=== PATIENT | female | born 1990 | race African-American/Black ===

== ENCOUNTER 2018-02-10 15:10 | Emergency (ER) | payer MEDICAID ==
[~2018-02-10] VITALS: Ht 165.1 cm; Wt 93.2 kg
[~2018-02-10 15:10] MED LIST: ALBU18HF2 INH; ALBU6.7H INH; ALPR-624 PO; BECL7.3A INH; CEPH250T PO; CHLO118M PO; CLIN-80 PO; CLIN150C98 PO; FLUO20CA22 PO; FLUO20CA39 PO; GLYB2.5T4 PO; HYDR-3964 PO; HYDR-569 PO; IBUP-1985 PO; IBUP-1986 PO; LEVO125T PO; METH-604 PO; METH4TAB81 PO; NAPR500T6 PO; ONDA4TAB6 PO; PHEN-716 PO; PREG50CA PO; PROP60TA19 PO; VALA10002 PO
[2018-02-10 16:09] LABS: BASOPHILS % (AUTO) 0.4 % (0-1); EOSINOPHILS # (AUTO) 0.1 X10'3 (0-0.9); EOSINOPHILS % (AUTO) 1.2 % (0-6); HEMATOCRIT 45.5 % (35.0-45.0); LYMPHOCYTES # (AUTO) 1.5 X10'3 (1.1-4.8); LYMPHOCYTES % (AUTO) 22.3 % (21-51); MEAN CORPUSCULAR HEMOGLOBIN 28.6 PG (27.0-31.0); MEAN CORPUSCULAR VOLUME 86.8 FL (78-98); MEAN PLATELET VOLUME 6.7 FL (7.4-10.4); MONOCYTES # (AUTO) 0.3 X10'3 (0-0.9); MONOCYTES % (AUTO) 4.4 % (2-12); NEUTROPHILS # (AUTO) 4.7 X10'3 (1.8-7.7); NEUTROPHILS % (AUTO) 71.7 % (42-75); PLATELET COUNT 251 X10'3 (140-440); RED BLOOD COUNT 5.24 X10'6 (4.20-5.60); RED CELL DISTRIBUTION WIDTH 15.8 % (11.5-14.5); WHITE BLOOD COUNT 6.6 X10'3 (4.5-11.0)
[2018-02-10] MEDS ORDERED: aspirin 81mg tab.chew PO ONE (16:15)
[2018-02-10] MEDS ORDERED: nitroGLYCERIN 0.4mg SUBLingual tab SL PRN (16:15)
[2018-02-10 16:20] LABS: PARTIAL THROMBOPLASTIN TIME 34 SECONDS (22-32); PROTHROMBIN TIME 10.8 SECONDS (9.0-12.0)
[2018-02-10 16:26] LABS: ALANINE AMINOTRANSFERASE 25 U/L (12-78); ALBUMIN 4.4 G/DL (3.4-5.0); ALBUMIN/GLOBULIN RATIO 0.9 (1.1-1.5); ALKALINE PHOSPHATASE 106 IU/L (46-116); ANION GAP 11 (8-16); ASPARTATE AMINO TRANSFERASE 20 U/L (10-37); BILIRUBIN,TOTAL 0.4 MG/DL (0.1-1.0); BLOOD UREA NITROGEN 10 MG/DL (7-18); BUN/CREATININE RATIO 9.4 (6.6-38.0); CALCIUM 8.8 MG/DL (8.5-10.1); CHLORIDE 98 MMOL/L (99-107); CREATININE 1.06 MG/DL (0.40-0.90); GLUCOSE 97 MG/DL (70-104); POTASSIUM 3.8 MMOL/L (3.5-5.1); SODIUM 137 MMOL/L (135-145); TOTAL CARBON DIOXIDE 27.6 MMOL/L (24-32); TOTAL PROTEIN 9.1 G/DL (6.4-8.2); TROPONIN I < 0.04 NG/ML (0.0-0.05); eGFR 75 ML/MIN
[2018-02-10] MEDS ORDERED: HYDROcodone/acetaminophen 10/325mg tab PO ONE (16:45)
[2018-02-10] MEDS ORDERED: ipratropium/albuterol 3ml nebule NEB ONE (17:05)
[2018-02-10 17:28] VITALS: BP 125/71
[2018-02-10 18:00] LABS: D-DIMER 0.28 MG/L FEU (0-0.50)
== END 2018-02-10 18:49 | disposition home or self-care (01) ==
LOC: ER 15:11
DX: R51 Headache (principal); R53.1 Weakness; R20.0 Anesthesia of skin; R05 Cough; R07.89 Other chest pain; E11.42 Type 2 diabetes mellitus with diabetic polyneuropathy; J45.909 Unspecified asthma, uncomplicated; E05.90 Thyrotoxicosis, unspecified without thyrotoxic crisis or storm; G89.29 Other chronic pain; Z90.49 Acquired absence of other specified parts of digestive tract; Z56.0 Unemployment, unspecified; Z88.5 Allergy status to narcotic agent; Z79.899 Other long term (current) drug therapy
CPT/HCPCS: 36415; 70450; 70544; 70551; 71045; 80053; 82948; 84484; 85025; 85379; 85610; 85730; 93005; 99285

== ENCOUNTER 2018-03-18 13:27 | Emergency (ER) | payer MEDICAID ==
[~2018-03-18] VITALS: Ht 166.4 cm; Wt 91.8 kg
[~2018-03-18 13:27] MED LIST changes: -CLIN-80 PO; +CLIN300C85 PO
[2018-03-18 13:33] VITALS: BP 113/72
[2018-03-18] MEDS ORDERED: HYDR-565 PO (15:47)
== END 2018-03-18 15:59 | disposition home or self-care (01) ==
LOC: ER 13:27
DX: R10.32 Left lower quadrant pain (principal); E11.42 Type 2 diabetes mellitus with diabetic polyneuropathy; G89.29 Other chronic pain; J45.909 Unspecified asthma, uncomplicated; E05.90 Thyrotoxicosis, unspecified without thyrotoxic crisis or storm; E89.0 Postprocedural hypothyroidism; Z98.890 Other specified postprocedural states; Z56.0 Unemployment, unspecified; Z88.5 Allergy status to narcotic agent; Z79.899 Other long term (current) drug therapy
CPT/HCPCS: 99283

== ENCOUNTER 2018-05-08 11:11 | Emergency (ER) | payer MEDICAID ==
[~2018-05-08] VITALS: Ht 167.6 cm; Wt 85.5 kg
[~2018-05-08 11:11] MED LIST changes: -CEPH250T PO
[2018-05-08] MEDS ORDERED: LIDOcaine 1.5% w/epinephrine 1:200,000 5ml ampul IJ ONE (11:35)
[2018-05-08] MEDS ORDERED: bacitracin 15gm ointment TP ONE (11:35)
[2018-05-08] MEDS ORDERED: HYDR-3965 PO (12:33)
[2018-05-08 12:46] VITALS: BP 121/66
== END 2018-05-08 12:47 | disposition home or self-care (01) ==
LOC: ER 11:11
DX: N60.82 Other benign mammary dysplasias of left breast (principal); N76.4 Abscess of vulva; L73.8 Other specified follicular disorders; N60.12 Diffuse cystic mastopathy of left breast; E11.42 Type 2 diabetes mellitus with diabetic polyneuropathy; J45.909 Unspecified asthma, uncomplicated; E05.90 Thyrotoxicosis, unspecified without thyrotoxic crisis or storm; G89.29 Other chronic pain; Z90.49 Acquired absence of other specified parts of digestive tract; Z56.0 Unemployment, unspecified; Z88.5 Allergy status to narcotic agent; Z79.899 Other long term (current) drug therapy
CPT/HCPCS: 10060; 56405; 99284; A6449; J3490

== ENCOUNTER 2018-05-13 11:13 | Emergency (ER) | payer MEDICAID ==
[~2018-05-13] VITALS: Ht 170.2 cm; Wt 69.0 kg
[~2018-05-13 11:13] MED LIST changes: +HYDR-3965 PO
[2018-05-13 11:17] VITALS: BP 120/76
[2018-05-13] MEDS ORDERED: ketorolac tromethamine 15mg/ml inj. IM ONE (11:40)
[2018-05-13] MEDS ORDERED: DOXY100C2 PO (11:48)
== END 2018-05-13 11:54 | disposition home or self-care (01) ==
LOC: ER 11:14
DX: L73.9 Follicular disorder, unspecified (principal); N64.52 Nipple discharge; E11.42 Type 2 diabetes mellitus with diabetic polyneuropathy; J45.909 Unspecified asthma, uncomplicated; G89.29 Other chronic pain; E05.90 Thyrotoxicosis, unspecified without thyrotoxic crisis or storm; Z90.49 Acquired absence of other specified parts of digestive tract; Z90.89 Acquired absence of other organs; Z88.5 Allergy status to narcotic agent; Z79.899 Other long term (current) drug therapy; Z56.0 Unemployment, unspecified
CPT/HCPCS: 96372; 99283; J1885

== ENCOUNTER 2018-05-20 11:26 | Emergency (ER) | payer MEDICAID ==
[~2018-05-20] VITALS: Ht 578.2 cm; Wt 68.8 kg
[~2018-05-20 11:26] MED LIST changes: +DOXY100C2 PO
[2018-05-20 11:29] VITALS: BP 104/74
== END 2018-05-20 13:10 | disposition home or self-care (01) ==
LOC: ER 11:27
DX: L02.212 Cutaneous abscess of back [any part, except buttock and flank] (principal); Z53.21 Procedure and treatment not carried out due to patient leaving prior to being seen by health care provider

== ENCOUNTER 2018-06-13 11:34 | Emergency (ER) | payer MEDICAID ==
[~2018-06-13] VITALS: Ht 167.6 cm; Wt 69.0 kg
[~2018-06-13 11:34] MED LIST changes: -DOXY100C2 PO; -HYDR-3965 PO
[2018-06-13] MEDS ORDERED: proparacaine 0.5% ophthalmic drops 15ml LEFTEYE ONE (12:20)
[2018-06-13 13:19] LABS: ALANINE AMINOTRANSFERASE 19 U/L (12-78); ALBUMIN 3.7 G/DL (3.4-5.0); ALKALINE PHOSPHATASE 113 IU/L (46-116); ANION GAP 10 (8-16); ASPARTATE AMINO TRANSFERASE 19 U/L (10-37); BILIRUBIN,TOTAL 0.2 MG/DL (0.1-1.0); BLOOD UREA NITROGEN 15 MG/DL (7-18); BUN/CREATININE RATIO 20.3 (6.6-38.0); CHLORIDE 102 MMOL/L (99-107); CREATININE 0.74 MG/DL (0.40-0.90); GLUCOSE 95 MG/DL (70-104); SODIUM 138 MMOL/L (135-145); TOTAL CARBON DIOXIDE 26.1 MMOL/L (24-32); TOTAL PROTEIN 7.5 G/DL (6.4-8.2); eGFR > 90 ML/MIN
[2018-06-13] MEDS ORDERED: HYDROcodone/acetaminophen 10/325mg tab PO ONE (13:45)
[2018-06-13] MEDS ORDERED: piperacillin/tazo 3.375gm/50ml 50 ML IV ONE (13:45)
[2018-06-13 14:00] LABS: BASOPHILS # (AUTO) 0.1 X10'3 (0-0.2); BASOPHILS % (AUTO) 0.8 % (0-1); EOSINOPHILS # (AUTO) 0.2 X10'3 (0-0.9); EOSINOPHILS % (AUTO) 2.9 % (0-6); HEMATOCRIT 41.5 % (35.0-45.0); HEMOGLOBIN 13.7 g/dl (12.0-16.0); LYMPHOCYTES % (AUTO) 47.7 % (21-51); MEAN CORPUSCULAR HEMOGLOBIN 28.2 PG (27.0-31.0); MEAN CORPUSCULAR VOLUME 85.4 FL (78-98); MONOCYTES # (AUTO) 0.3 X10'3 (0-0.9); MONOCYTES % (AUTO) 4.3 % (2-12); NEUTROPHILS # (AUTO) 2.8 X10'3 (1.8-7.7); NEUTROPHILS % (AUTO) 44.3 % (42-75); PLATELET COUNT 301 X10'3 (140-440); RED BLOOD COUNT 4.86 X10'6 (4.20-5.60); RED CELL DISTRIBUTION WIDTH 15.4 % (11.5-14.5); WHITE BLOOD COUNT 6.3 X10'3 (4.5-11.0)
[2018-06-13] MEDS ORDERED: ofloxacin 0.33% 5ml ophthalmic drops LEFTEYE STA (14:08)
[2018-06-13] MEDS ORDERED: amox tr/potassium clavulanate 875/125mg TAB PO ONE (14:10)
[2018-06-13 14:13] LABS: TROPONIN I < 0.04 NG/ML (0.0-0.05)
[2018-06-13] MEDS ORDERED: ciprofloxacin 0.3% 2.5ml ophthalmic solution LEFTEYE ONE (14:20)
[2018-06-13] MEDS ORDERED: AMOX-580 PO (14:28)
[2018-06-13] MEDS ORDERED: OFLO5DRO LEFTEYE (14:28)
[2018-06-13 14:42] VITALS: BP 136/60
== END 2018-06-13 14:50 | disposition home or self-care (01) ==
LOC: ER 11:35
DX: S05.02XA Injury of conjunctiva and corneal abrasion without foreign body, left eye, initial encounter (principal); H04.302 Unspecified dacryocystitis of left lacrimal passage; R06.02 Shortness of breath; E11.42 Type 2 diabetes mellitus with diabetic polyneuropathy; J44.9 Chronic obstructive pulmonary disease, unspecified; G89.29 Other chronic pain; E03.9 Hypothyroidism, unspecified; Z90.49 Acquired absence of other specified parts of digestive tract; Z88.5 Allergy status to narcotic agent; Z79.2 Long term (current) use of antibiotics; Z79.899 Other long term (current) drug therapy; Z56.0 Unemployment, unspecified; X58.XXXA Exposure to other specified factors, initial encounter; Y93.89 Activity, other specified; Y92.89 Other specified places as the place of occurrence of the external cause; Y99.8 Other external cause status
CPT/HCPCS: 36415; 70480; 71045; 80053; 84484; 85025; 93005; 99285; J2543

== ENCOUNTER 2018-06-15 15:56 | Emergency (ER) | payer MEDICAID ==
[~2018-06-15] VITALS: Ht 167.6 cm; Wt 75.5 kg
[~2018-06-15 15:56] MED LIST changes: +AMOX-580 PO; +OFLO5DRO LEFTEYE
[2018-06-15] MEDS ORDERED: HYDR-565 PO (16:47)
[2018-06-15] MEDS ORDERED: PENI250T2 PO (16:47)
[2018-06-15 17:14] VITALS: BP 163/100
== END 2018-06-15 17:10 | disposition home or self-care (01) ==
LOC: ER 15:57
DX: K04.7 Periapical abscess without sinus (principal); E11.42 Type 2 diabetes mellitus with diabetic polyneuropathy; J45.909 Unspecified asthma, uncomplicated; E03.9 Hypothyroidism, unspecified; G89.29 Other chronic pain; Z90.49 Acquired absence of other specified parts of digestive tract; Z90.89 Acquired absence of other organs; Z88.5 Allergy status to narcotic agent; Z79.2 Long term (current) use of antibiotics; Z79.899 Other long term (current) drug therapy; Z56.0 Unemployment, unspecified
CPT/HCPCS: 99284

== ENCOUNTER 2018-07-05 11:53 | Emergency (ER) | payer MEDICAID ==
[~2018-07-05] VITALS: Ht 167.6 cm; Wt 69.2 kg
[~2018-07-05 11:53] MED LIST changes: +HYDR-4383 PO; -HYDR-569 PO
[2018-07-05] MEDS ORDERED: DICY10CA88 PO (12:32)
[2018-07-05 12:42] VITALS: BP 106/68
== END 2018-07-05 12:44 | disposition home or self-care (01) ==
LOC: ER 11:54
DX: R10.84 Generalized abdominal pain (principal); R61 Generalized hyperhidrosis; F41.9 Anxiety disorder, unspecified; F32.9 Major depressive disorder, single episode, unspecified; F20.9 Schizophrenia, unspecified; G89.29 Other chronic pain; E11.42 Type 2 diabetes mellitus with diabetic polyneuropathy; Z87.440 Personal history of urinary (tract) infections; Z90.49 Acquired absence of other specified parts of digestive tract; Z56.0 Unemployment, unspecified; Z88.5 Allergy status to narcotic agent; Z79.899 Other long term (current) drug therapy
CPT/HCPCS: 99283

== ENCOUNTER → 2018-09-22 | Emergency (ER) | payer MEDICAID ==
[~2018-09-22] VITALS: Ht 167.6 cm; Wt 90.9 kg
[~2018-09-22] MED LIST changes: +ACET-3068 PO; -AMOX-580 PO; +DICY10CA88 PO; -OFLO5DRO LEFTEYE; +PENI500T2 PO
[2018-09-22 13:09] VITALS: BP 117/76
--- NOTE | 2018-09-22 16:18 | NUR ---
DID NOT WANT TO WAIT FOR ORTHO ORDERS AND LEFT WITH DC PAPERS AND AN LORI WRAP.
== END | disposition home or self-care (01) ==
LOC: ER 13:03
DX: S60.222A Contusion of left hand, initial encounter (principal); E11.42 Type 2 diabetes mellitus with diabetic polyneuropathy; J45.909 Unspecified asthma, uncomplicated; E05.90 Thyrotoxicosis, unspecified without thyrotoxic crisis or storm; G89.29 Other chronic pain; Z90.49 Acquired absence of other specified parts of digestive tract; Z90.89 Acquired absence of other organs; Z87.891 Personal history of nicotine dependence; Z79.899 Other long term (current) drug therapy; Z56.0 Unemployment, unspecified; W01.0XXA Fall on same level from slipping, tripping and stumbling without subsequent striking against object, initial encounter; Y93.89 Activity, other specified; Y92.89 Other specified places as the place of occurrence of the external cause; Y99.8 Other external cause status
CPT/HCPCS: 29125; 73110; 73130; 99283

== ENCOUNTER 2018-10-15 11:01 | Emergency (ER) | payer MEDICAID ==
[~2018-10-15] VITALS: Ht 167.6 cm; Wt 78.0 kg
[~2018-10-15 11:01] MED LIST changes: -PENI500T2 PO
[2018-10-15 11:03] VITALS: BP 118/64
[2018-10-15] MEDS ORDERED: ketorolac trometh inj. 60 MG/2 ML VIAL IM ONE (12:15)
== END 2018-10-15 12:30 | disposition home or self-care (01) ==
LOC: ER 11:02
DX: S70.12XA Contusion of left thigh, initial encounter (principal); H54.40 Blindness, one eye, unspecified eye; J45.909 Unspecified asthma, uncomplicated; E11.42 Type 2 diabetes mellitus with diabetic polyneuropathy; G89.29 Other chronic pain; Z90.49 Acquired absence of other specified parts of digestive tract; Z98.890 Other specified postprocedural states; Z56.0 Unemployment, unspecified; Z79.2 Long term (current) use of antibiotics; Z79.899 Other long term (current) drug therapy; X58.XXXA Exposure to other specified factors, initial encounter; Y93.89 Activity, other specified; Y92.89 Other specified places as the place of occurrence of the external cause; Y99.8 Other external cause status
CPT/HCPCS: 96372; 99283; J1885

== ENCOUNTER 2019-01-07 12:23 | Emergency (ER) | payer MEDICAID ==
[~2019-01-07] VITALS: Ht 167.6 cm; Wt 96.4 kg
[~2019-01-07 12:23] MED LIST changes: -ACET-3068 PO; +CLIN-96 PO; -CLIN300C85 PO
[2019-01-07 12:55] VITALS: BP 123/77
[2019-01-07] MEDS ORDERED: SULF1TAB49 PO (13:25)
== END 2019-01-07 14:21 | disposition home or self-care (01) ==
LOC: ER 12:24
DX: N76.4 Abscess of vulva (principal); E11.42 Type 2 diabetes mellitus with diabetic polyneuropathy; J45.909 Unspecified asthma, uncomplicated; E03.9 Hypothyroidism, unspecified; G89.29 Other chronic pain; Z90.49 Acquired absence of other specified parts of digestive tract; Z98.890 Other specified postprocedural states; Z56.0 Unemployment, unspecified; Z79.899 Other long term (current) drug therapy
CPT/HCPCS: 99283

== ENCOUNTER 2019-02-10 13:02 | Emergency (ER) | payer MEDICAID ==
[~2019-02-10] VITALS: Ht 167.6 cm; Wt 82.0 kg
[2019-02-10 13:08] VITALS: BP 114/74
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
[2019-02-10] MEDS ORDERED: TRAM50TA2 PO (17:02)
== END 2019-02-10 14:03 | disposition left against medical advice (07) ==
LOC: ER 13:03
DX: S70.02XA Contusion of left hip, initial encounter (principal); S70.01XA Contusion of right hip, initial encounter; R07.9 Chest pain, unspecified; J45.909 Unspecified asthma, uncomplicated; E11.42 Type 2 diabetes mellitus with diabetic polyneuropathy; G89.29 Other chronic pain; E05.90 Thyrotoxicosis, unspecified without thyrotoxic crisis or storm; Z90.49 Acquired absence of other specified parts of digestive tract; Z90.89 Acquired absence of other organs; Z79.899 Other long term (current) drug therapy; Z56.0 Unemployment, unspecified; X99.8XXA Assault by other sharp object, initial encounter; Y93.01 Activity, walking, marching and hiking; Y92.488 Other paved roadways as the place of occurrence of the external cause; Y99.8 Other external cause status
CPT/HCPCS: 71045; 99284

== ENCOUNTER 2019-02-10 16:24 | Emergency (ER) | payer MEDICAID ==
[~2019-02-10] VITALS: Ht 167.6 cm; Wt 80.7 kg
[2019-02-10 16:33] VITALS: BP 108/78
[2019-02-10] MEDS ORDERED: TRAM50TA2 PO (17:02)
--- NOTE | 2019-02-10 17:08 | NUR ---
I TOOK PHOTOS OF PT'S RIGHT KNEE, LEFT THIG, TOP OF RIGHT SHOULDER, RIGHT SCAPULA, RIGHT PUBIS AREA LUMP, LEFT ANKEL WITH SOME BRUISING. PHOTOS WERE TAKEN ON [employer] OFFICERS SIM CARD AND OUR CAMERA. OFFICER LEFT WITH THE SIM CARD AND PT.
== END 2019-02-10 17:11 | disposition home or self-care (01) ==
LOC: EEVIPCON 16:25 → ER 16:25
DX: S20.211A Contusion of right front wall of thorax, initial encounter (principal); S40.011A Contusion of right shoulder, initial encounter; S80.12XA Contusion of left lower leg, initial encounter; S80.11XA Contusion of right lower leg, initial encounter; S80.02XA Contusion of left knee, initial encounter; S80.01XA Contusion of right knee, initial encounter; E11.42 Type 2 diabetes mellitus with diabetic polyneuropathy; J45.909 Unspecified asthma, uncomplicated; E03.9 Hypothyroidism, unspecified; G89.29 Other chronic pain; Z90.49 Acquired absence of other specified parts of digestive tract; Z98.890 Other specified postprocedural states; Z56.0 Unemployment, unspecified; Z59.0 Homelessness; Z79.899 Other long term (current) drug therapy; Y04.8XXA Assault by other bodily force, initial encounter; Y93.89 Activity, other specified; Y92.89 Other specified places as the place of occurrence of the external cause; Y99.8 Other external cause status
CPT/HCPCS: 99283

== ENCOUNTER 2019-03-14 19:07 | Emergency (ER) | payer MEDICAID ==
[~2019-03-14] VITALS: Ht 167.6 cm; Wt 85.5 kg
[~2019-03-14 19:07] MED LIST changes: +CYCL-1 PO; +TRAM50TA2 PO
[2019-03-14 19:14] VITALS: BP 112/80
== END 2019-03-14 22:13 | disposition left against medical advice (07) ==
LOC: ER 19:07
DX: M25.562 Pain in left knee (principal); Z53.21 Procedure and treatment not carried out due to patient leaving prior to being seen by health care provider
CPT/HCPCS: 73564

== ENCOUNTER 2019-05-14 12:51 | Emergency (ER) | payer MEDICAID ==
[~2019-05-14] VITALS: Ht 167.6 cm; Wt 85.5 kg
[~2019-05-14 12:51] MED LIST changes: -ALBU6.7H INH; +ALBU6.7H9 INH; -TRAM50TA2 PO
[2019-05-14] MEDS ORDERED: PENI500T2 PO (13:48)
[2019-05-14 13:50] VITALS: BP 134/82
== END 2019-05-14 13:38 | disposition home or self-care (01) ==
LOC: ER 12:51
DX: L02.214 Cutaneous abscess of groin (principal); K02.9 Dental caries, unspecified; J45.909 Unspecified asthma, uncomplicated; E11.9 Type 2 diabetes mellitus without complications; E05.00 Thyrotoxicosis with diffuse goiter without thyrotoxic crisis or storm; E05.90 Thyrotoxicosis, unspecified without thyrotoxic crisis or storm; G89.29 Other chronic pain; F41.9 Anxiety disorder, unspecified; F32.9 Major depressive disorder, single episode, unspecified; F20.9 Schizophrenia, unspecified; Z90.49 Acquired absence of other specified parts of digestive tract; Z56.0 Unemployment, unspecified; Z79.2 Long term (current) use of antibiotics; Z79.899 Other long term (current) drug therapy
CPT/HCPCS: 99283

== ENCOUNTER 2019-08-18 14:27 | Emergency (ER) | payer MEDICAID ==
[~2019-08-18] VITALS: Ht 167.6 cm; Wt 75.0 kg
[~2019-08-18 14:27] MED LIST changes: +CLIN-90 PO; -CLIN-96 PO
[2019-08-18 15:16] LABS: BASOPHILS # (AUTO) 0.1 X10'3 (0-0.2); BASOPHILS % (AUTO) 0.9 % (0-1); EOSINOPHILS # (AUTO) 0.2 X10'3 (0-0.9); HEMATOCRIT 37.3 % (35.0-45.0); HEMOGLOBIN 12.8 g/dl (12.0-16.0); LYMPHOCYTES # (AUTO) 2.9 X10'3 (1.1-4.8); LYMPHOCYTES % (AUTO) 41.4 % (21-51); MEAN CORPUSCULAR HEMOGLOBIN 31.4 PG (27.0-31.0); MEAN CORPUSCULAR HGB CONC 34.3 g/dL (33.0-36.5); MEAN CORPUSCULAR VOLUME 91.7 FL (78-98); MEAN PLATELET VOLUME 6.8 FL (7.4-10.4); MONOCYTES # (AUTO) 0.4 X10'3 (0-0.9); MONOCYTES % (AUTO) 5.1 % (2-12); NEUTROPHILS # (AUTO) 3.5 X10'3 (1.8-7.7); NEUTROPHILS % (AUTO) 49.6 % (42-75); PLATELET COUNT 267 X10'3 (140-440); RED BLOOD COUNT 4.07 X10'6 (4.20-5.60); RED CELL DISTRIBUTION WIDTH 17.1 % (11.5-14.5)
[2019-08-18 15:33] LABS: ALANINE AMINOTRANSFERASE 30 U/L (12-78); ALBUMIN/GLOBULIN RATIO 1.1 (1.1-1.5); ALKALINE PHOSPHATASE 92 IU/L (46-116); ANION GAP 6 (8-16); ASPARTATE AMINO TRANSFERASE 24 U/L (10-37); BILIRUBIN,TOTAL 0.4 MG/DL (0.1-1.0); BLOOD UREA NITROGEN 12 MG/DL (7-18); BUN/CREATININE RATIO 14.1 (6.6-38.0); CALCIUM 8.5 MG/DL (8.5-10.1); CHLORIDE 103 MMOL/L (99-107); CREATININE 0.85 MG/DL (0.40-0.90); GLUCOSE 100 MG/DL (70-104); LIPASE 66 U/L (73-393); POTASSIUM 4.2 MMOL/L (3.5-5.1); SODIUM 140 MMOL/L (135-145); TOTAL CARBON DIOXIDE 31.3 MMOL/L (24-32); TOTAL PROTEIN 7.8 G/DL (6.4-8.2); eGFR > 90 ML/MIN
[2019-08-18 17:01] LABS: URINE HCG NEGATIVE (NEG)
[2019-08-18 17:03] LABS: CLARITY,URINE SLIGHTLY CLOUDY (Clear); COLOR,URINE YELLOW (Yellow); GLUCOSE, URINE NEGATIVE (Neg); KETONES,URINE NEGATIVE (Neg); LEUKOCYTE ESTERASE ,URINE NEGATIVE (Neg); NITRITES, URINE NEGATIVE (Neg); OCCULT BLOOD,URINE SMALL (Neg); PH,URINE 7.5 (4.8-8.0); PROTEIN,URINE NEGATIVE (Neg); UROBILINOGEN,URINE 0.2 E.U/dL (0.2-1.0)
[2019-08-18 17:04] LABS: UA COLLECTION TYPE CLN CATCH MIDSTREAM
[2019-08-18 17:11] LABS: BACTERIA,URINE FEW /HPF (Neg); MUCUS STRANDS FEW /LPF (Neg); SQUAMOUS EPITHELIAL CELL,UR MANY /LPF (FEW); WBC,URINE 0-4 /HPF (0-4)
[2019-08-18] MEDS ORDERED: ketorolac tromethamine 15mg/ml inj. IM ONE (17:30)
[2019-08-18] MEDS ORDERED: IBUP-1984 PO (17:33)
[2019-08-18] MEDS ORDERED: ACET-2119 PO (17:33)
[2019-08-18 17:49] VITALS: BP 113/63
== END 2019-08-18 17:50 | disposition home or self-care (01) ==
LOC: ER 14:27
DX: K43.9 Ventral hernia without obstruction or gangrene (principal); J45.909 Unspecified asthma, uncomplicated; E05.90 Thyrotoxicosis, unspecified without thyrotoxic crisis or storm; G89.29 Other chronic pain; E11.42 Type 2 diabetes mellitus with diabetic polyneuropathy; Z90.49 Acquired absence of other specified parts of digestive tract; Z56.0 Unemployment, unspecified; Z79.899 Other long term (current) drug therapy
CPT/HCPCS: 36415; 80053; 81001; 81025; 83690; 85025; 96372; 99283; J1885

== ENCOUNTER 2019-10-01 15:39 | Emergency (ER) | payer MEDICAID, OTHER ==
[~2019-10-01] VITALS: Ht 165.1 cm; Wt 80.0 kg
[~2019-10-01 15:39] MED LIST changes: +ACET-2119 PO; +FLUO-167 PO; -FLUO20CA22 PO
[2019-10-01 15:47] VITALS: BP 131/85
--- NOTE | 2019-10-01 16:10 | NUR ---
Officer responded to ED lobby and observed speaking with patient.
[2019-10-01] MEDS ORDERED: CefTRIAXone 250MG IM Kit w/LIDOcaine IM ONE (16:20)
[2019-10-01] MEDS ORDERED: azithromycin 250mg tablet PO ONE (16:20)
[2019-10-01] MEDS ORDERED: penicillin G benzathine 1.2 million unit/2ml syringe IM ONE ×2 (16:30)
[2019-10-01] MEDS ORDERED: ketorolac trometh inj. 60 MG/2 ML VIAL IM ONE (16:55)
[2019-10-01 17:01] LABS: URINE HCG NEGATIVE (NEG)
== END 2019-10-01 17:20 | disposition home or self-care (01) ==
LOC: ER 15:40
DX: N89.8 Other specified noninflammatory disorders of vagina (principal); E11.42 Type 2 diabetes mellitus with diabetic polyneuropathy; J45.909 Unspecified asthma, uncomplicated; E03.9 Hypothyroidism, unspecified; G89.29 Other chronic pain; F41.9 Anxiety disorder, unspecified; F32.9 Major depressive disorder, single episode, unspecified; F20.9 Schizophrenia, unspecified; Z90.49 Acquired absence of other specified parts of digestive tract; Z90.89 Acquired absence of other organs; Z98.890 Other specified postprocedural states; Z56.0 Unemployment, unspecified; Z79.899 Other long term (current) drug therapy
CPT/HCPCS: 81025; 96372; 99283; J0561; J0696; J1885

== ENCOUNTER 2019-10-29 16:10 | Emergency (ER) | payer MEDICAID ==
[~2019-10-29] VITALS: Ht 167.6 cm; Wt 75.8 kg
[2019-10-29 16:42] LABS: BASOPHILS # (AUTO) 0.1 X10'3 (0-0.2); BASOPHILS % (AUTO) 1.5 % (0-1); EOSINOPHILS # (AUTO) 0.1 X10'3 (0-0.9); EOSINOPHILS % (AUTO) 1.7 % (0-6); HEMATOCRIT 40.1 % (35.0-45.0); HEMOGLOBIN 13.5 g/dl (12.0-16.0); LYMPHOCYTES # (AUTO) 3.7 X10'3 (1.1-4.8); LYMPHOCYTES % (AUTO) 46.1 % (21-51); MEAN CORPUSCULAR HEMOGLOBIN 30.6 PG (27.0-31.0); MEAN CORPUSCULAR HGB CONC 33.8 g/dL (33.0-36.5); MEAN CORPUSCULAR VOLUME 90.7 FL (78-98); MEAN PLATELET VOLUME 6.8 FL (7.4-10.4); MONOCYTES # (AUTO) 0.3 X10'3 (0-0.9); MONOCYTES % (AUTO) 4.4 % (2-12); NEUTROPHILS # (AUTO) 3.7 X10'3 (1.8-7.7); NEUTROPHILS % (AUTO) 46.3 % (42-75); PLATELET COUNT 279 X10'3 (140-440); RED BLOOD COUNT 4.41 X10'6 (4.20-5.60); RED CELL DISTRIBUTION WIDTH 14.5 % (11.5-14.5)
[2019-10-29 16:55] LABS: ALANINE AMINOTRANSFERASE 29 U/L (12-78); ALBUMIN 4.1 G/DL (3.4-5.0); ALBUMIN/GLOBULIN RATIO 1.1 (1.1-1.5); ALKALINE PHOSPHATASE 75 IU/L (46-116); ANION GAP 6 (8-16); ASPARTATE AMINO TRANSFERASE 27 U/L (10-37); BILIRUBIN,TOTAL 0.3 MG/DL (0.1-1.0); BLOOD UREA NITROGEN 16 MG/DL (7-18); BUN/CREATININE RATIO 22.2 (6.6-38.0); CHLORIDE 104 MMOL/L (99-107); CREATININE 0.72 MG/DL (0.40-0.90); GLUCOSE 96 MG/DL (70-104); POTASSIUM 3.9 MMOL/L (3.5-5.1); SODIUM 139 MMOL/L (135-145); TOTAL PROTEIN 7.9 G/DL (6.4-8.2); eGFR > 90 ML/MIN
[2019-10-29] MEDS ORDERED: ondansetron/PF 4mg/2ml inj IV ONE (16:55)
[2019-10-29] MEDS ORDERED: famotidine/PF 10 mg/ml inj IV ONE (16:55)
[2019-10-29] MEDS ORDERED: normal saline 1000ml 1,000 ML IV ONE ×2 (16:55→17:40)
[2019-10-29] MEDS ORDERED: ketorolac tromethamine 15mg/ml inj. IV ONE (16:55)
[2019-10-29] MEDS ORDERED: pantoprazole 40 MG vial IV ONE (16:55)
[2019-10-29 17:05] LABS: LIPASE 52 U/L (73-393); TROPONIN I < 0.04 NG/ML (0.0-0.05)
[2019-10-29] MEDS ORDERED: ONDA8TAB6 PO (17:39)
[2019-10-29 19:16] VITALS: BP 114/66
== END 2019-10-29 19:18 | disposition home or self-care (01) ==
LOC: ER 16:10
DX: K29.70 Gastritis, unspecified, without bleeding (principal); E11.42 Type 2 diabetes mellitus with diabetic polyneuropathy; J45.909 Unspecified asthma, uncomplicated; G89.29 Other chronic pain; F41.9 Anxiety disorder, unspecified; F32.9 Major depressive disorder, single episode, unspecified; F20.9 Schizophrenia, unspecified; Z90.49 Acquired absence of other specified parts of digestive tract; Z98.890 Other specified postprocedural states; Z56.0 Unemployment, unspecified; Z79.899 Other long term (current) drug therapy
CPT/HCPCS: 36415; 80053; 83690; 84484; 85025; 93005; 96361; 96374; 96375; 99284; C9113; J1885; J2405; J3490; J7030

== ENCOUNTER 2019-11-03 18:07 | Emergency (ER) | payer MEDICAID ==
[~2019-11-03] VITALS: Ht 167.6 cm; Wt 75.0 kg
[~2019-11-03 18:07] MED LIST changes: +ONDA8TAB6 PO
[2019-11-03 19:13] LABS: BASOPHILS # (AUTO) 0.1 X10'3 (0-0.2); EOSINOPHILS # (AUTO) 0.2 X10'3 (0-0.9); HEMATOCRIT 41.4 % (35.0-45.0); HEMOGLOBIN 14.3 g/dl (12.0-16.0); LYMPHOCYTES # (AUTO) 2.7 X10'3 (1.1-4.8); LYMPHOCYTES % (AUTO) 43.2 % (21-51); MEAN CORPUSCULAR HEMOGLOBIN 31.3 PG (27.0-31.0); MEAN CORPUSCULAR HGB CONC 34.4 g/dL (33.0-36.5); MEAN CORPUSCULAR VOLUME 90.7 FL (78-98); MEAN PLATELET VOLUME 6.9 FL (7.4-10.4); MONOCYTES # (AUTO) 0.2 X10'3 (0-0.9); MONOCYTES % (AUTO) 3.3 % (2-12); NEUTROPHILS # (AUTO) 3.1 X10'3 (1.8-7.7); NEUTROPHILS % (AUTO) 49.5 % (42-75); PLATELET COUNT 308 X10'3 (140-440); RED BLOOD COUNT 4.56 X10'6 (4.20-5.60); RED CELL DISTRIBUTION WIDTH 14.7 % (11.5-14.5); WHITE BLOOD COUNT 6.3 X10'3 (4.5-11.0)
[2019-11-03 19:20] LABS: ALANINE AMINOTRANSFERASE 32 U/L (12-78); ALBUMIN 4.4 G/DL (3.4-5.0); ALBUMIN/GLOBULIN RATIO 1.1 (1.1-1.5); ALKALINE PHOSPHATASE 84 IU/L (46-116); ANION GAP 8 (8-16); ASPARTATE AMINO TRANSFERASE 30 U/L (10-37); BILIRUBIN,TOTAL 0.3 MG/DL (0.1-1.0); BLOOD UREA NITROGEN 16 MG/DL (7-18); CALCIUM 9.3 MG/DL (8.5-10.1); CHLORIDE 103 MMOL/L (99-107); CREATININE 0.84 MG/DL (0.40-0.90); GLUCOSE 139 MG/DL (70-104); SODIUM 137 MMOL/L (135-145); TOTAL CARBON DIOXIDE 26.2 MMOL/L (24-32); TOTAL PROTEIN 8.5 G/DL (6.4-8.2); eGFR > 90 ML/MIN
[2019-11-03 19:44] LABS: URINE HCG NEGATIVE (NEG)
[2019-11-03 19:46] LABS: CLARITY,URINE CLEAR (Clear); COLOR,URINE YELLOW (Yellow); GLUCOSE, URINE NEGATIVE (Neg); KETONES,URINE NEGATIVE (Neg); LEUKOCYTE ESTERASE ,URINE NEGATIVE (Neg); NITRITES, URINE NEGATIVE (Neg); OCCULT BLOOD,URINE NEGATIVE (Neg); PH,URINE 8.5 (4.8-8.0); PROTEIN,URINE NEGATIVE (Neg); UROBILINOGEN,URINE 0.2 E.U/dL (0.2-1.0)
[2019-11-03 20:01] LABS: UA COLLECTION TYPE CLN CATCH MIDSTREAM
[2019-11-03] MEDS ORDERED: HYDR-4353 PO (20:28)
[2019-11-03] MEDS ORDERED: HYDROcodone/acetaminophen 10/325mg tab PO ONE (20:30)
[2019-11-03 20:55] VITALS: BP 121/76
--- NOTE | 2019-11-03 20:55 | NUR ---
pt has used incentive spirometers in the past, has no questions
== END 2019-11-03 20:57 | disposition home or self-care (01) ==
LOC: ER 18:08
DX: S22.31XA Fracture of one rib, right side, initial encounter for closed fracture (principal); R42 Dizziness and giddiness; M25.511 Pain in right shoulder; G89.29 Other chronic pain; F41.9 Anxiety disorder, unspecified; F32.9 Major depressive disorder, single episode, unspecified; F20.9 Schizophrenia, unspecified; E11.42 Type 2 diabetes mellitus with diabetic polyneuropathy; J45.909 Unspecified asthma, uncomplicated; E05.90 Thyrotoxicosis, unspecified without thyrotoxic crisis or storm; E89.0 Postprocedural hypothyroidism; Z87.440 Personal history of urinary (tract) infections; Z56.0 Unemployment, unspecified; Z79.899 Other long term (current) drug therapy; W19.XXXA Unspecified fall, initial encounter; Y93.89 Activity, other specified; Y92.89 Other specified places as the place of occurrence of the external cause; Y99.8 Other external cause status
CPT/HCPCS: 36415; 71045; 80053; 81003; 81025; 84484; 85025; 93005; 99285

== ENCOUNTER 2019-11-04 23:49 | Emergency (ER) | payer MEDICAID ==
[~2019-11-04] VITALS: Ht 167.6 cm; Wt 87.3 kg
[~2019-11-04 23:49] MED LIST changes: +HYDR-4353 PO
[2019-11-05 00:23] LABS: BASOPHILS # (AUTO) 0.1 X10'3 (0-0.2); EOSINOPHILS # (AUTO) 0.2 X10'3 (0-0.9); EOSINOPHILS % (AUTO) 3.2 % (0-6); HEMATOCRIT 38.5 % (35.0-45.0); HEMOGLOBIN 13.1 g/dl (12.0-16.0); LYMPHOCYTES # (AUTO) 4.1 X10'3 (1.1-4.8); LYMPHOCYTES % (AUTO) 55.6 % (21-51); MEAN CORPUSCULAR VOLUME 91.1 FL (78-98); MEAN PLATELET VOLUME 6.6 FL (7.4-10.4); MONOCYTES # (AUTO) 0.3 X10'3 (0-0.9); MONOCYTES % (AUTO) 4.4 % (2-12); NEUTROPHILS # (AUTO) 2.6 X10'3 (1.8-7.7); NEUTROPHILS % (AUTO) 35.8 % (42-75); PLATELET COUNT 306 X10'3 (140-440); RED BLOOD COUNT 4.23 X10'6 (4.20-5.60); WHITE BLOOD COUNT 7.3 X10'3 (4.5-11.0)
[2019-11-05 00:23] LABS: URINE HCG NEGATIVE (NEG)
[2019-11-05 00:29] LABS: CLARITY,URINE CLEAR (Clear); COLOR,URINE STRAW (Yellow); GLUCOSE, URINE NEGATIVE (Neg); KETONES,URINE NEGATIVE (Neg); LEUKOCYTE ESTERASE ,URINE NEGATIVE (Neg); NITRITES, URINE NEGATIVE (Neg); OCCULT BLOOD,URINE TRACE-INTACT (Neg); PROTEIN,URINE NEGATIVE (Neg); UROBILINOGEN,URINE 0.2 E.U/dL (0.2-1.0)
--- NOTE | 2019-11-05 00:29 | NUR ---
relieving RN for break, pt is verbally confrontational, security at bedside, pt is threatening to leave, very uncooperative, Karen MILLER at bedside
[2019-11-05] MEDS ORDERED: LORazepam 2 mg/ml vial IM ONE ×2 (00:30→01:15)
[2019-11-05] MEDS ORDERED: diphenhydrAMINE 50 mg/ml inj IM ONE (00:30)
[2019-11-05] MEDS ORDERED: haloperidol lactate 5mg/ml inj IM ONE (00:30)
[2019-11-05 00:34] LABS: UA COLLECTION TYPE CLN CATCH MIDSTREAM
[2019-11-05 00:37] LABS: BACTERIA,URINE NONE SEEN /HPF (Neg); RBC,URINE 0-2 /HPF (0-2); SQUAMOUS EPITHELIAL CELL,UR FEW /LPF (FEW); WBC,URINE 0-4 /HPF (0-4)
[2019-11-05 00:37] LABS: ALANINE AMINOTRANSFERASE 30 U/L (12-78); ALBUMIN/GLOBULIN RATIO 1.1 (1.1-1.5); ALKALINE PHOSPHATASE 92 IU/L (46-116); ANION GAP 9 (8-16); ASPARTATE AMINO TRANSFERASE 23 U/L (10-37); BILIRUBIN,TOTAL 0.2 MG/DL (0.1-1.0); BLOOD UREA NITROGEN 18 MG/DL (7-18); BUN/CREATININE RATIO 22.8 (6.6-38.0); CALCIUM 8.4 MG/DL (8.5-10.1); CHLORIDE 105 MMOL/L (99-107); CREATININE 0.79 MG/DL (0.40-0.90); GLUCOSE 113 MG/DL (70-104); POTASSIUM 3.2 MMOL/L (3.5-5.1); SODIUM 142 MMOL/L (135-145); TOTAL CARBON DIOXIDE 27.9 MMOL/L (24-32); TOTAL PROTEIN 7.8 G/DL (6.4-8.2); eGFR > 90 ML/MIN
--- NOTE | 2019-11-05 00:45 | NUR ---
PT IS VERBALLY THREATENING STAFF, WANTS TO LEAVE, PLACED IN RESTRAINTS BY SECURITY, PT IS VERY UNCOOPERATIVE, REFUSING TO FOLLOW DIRECTIONS, DANGER TO SELF AND STAFF, UNSTEADY ON FEET, HAVE MADE SEVERAL ATTEMPTS TO TALK WITH PT,
[2019-11-05 00:46] LABS: ACETAMINOPHEN < 2.0 UG/ML (10-30); ETHANOL 0.228 GM/DL (0.0-0.010)
[2019-11-05 00:58] LABS: TOTAL CELLS COUNTED 100
--- NOTE | 2019-11-05 00:58 | NUR ---
pt remains verbally confrontational, she was yelling for bed rodriguez, offered pt bedpan, she refused, A. Cabrera aware pt is agitated, yelling and uncooperative with following instructions
--- NOTE | 2019-11-05 00:58 | NUR ---
PT YELLING AND SCREAMING SHE WANTS TO GO PEE. OFFERED HER A BEDPAN AND SHE IS REFUSING. SECURITY AT BEDSIDE.
[2019-11-05 00:59] LABS: PLATELET ESTIMATE NORMAL
[2019-11-05 01:02] LABS: URINE AMPHETAMINE SCREEN NEGATIVE (Neg); URINE BARBITUATE SCREEN NEGATIVE (Neg); URINE BENZODIAZEPINES SCREEN NEGATIVE (Neg); URINE CANNABINOID SCREEN POSITIVE (Neg); URINE COCAINE SCREEN NEGATIVE (Neg); URINE METHADONE SCREEN NEGATIVE (Neg); URINE OPIATE SCREEN POSITIVE (Neg); URINE PHENCYCLIDINE SCREEN NEGATIVE (Neg)
--- NOTE | 2019-11-05 01:14 | NUR ---
KAUSHIK MONTALVO, MOTHER, , [place], [place] [facility], AUNT,
--- NOTE | 2019-11-05 03:01 | NUR ---
report given to ASHLEY Nixon. Pt taken to overflow. pt sleeping at this time and is being monitored with v/s equipment. 97% on RA R14.
--- NOTE | 2019-11-05 03:06 | NUR ---
The patient moved to bed 27 in the ER. She remains sleeping at this point. She is on a 5150 hold. 02 sats and BP being monitored
--- NOTE | 2019-11-05 03:13 | NUR ---
PATIENT PACKET FAXED TO [facility]
--- NOTE | 2019-11-05 04:07 | NUR ---
The patient appears to be sleeping. Vital signs HR 91, BP 104/66.
[2019-11-05] MEDS ORDERED: levoTHYROXINE 75mcg tablet PO SCH (07:00)
--- NOTE | 2019-11-05 07:01 | NUR ---
resting quietly in bed.
--- NOTE | 2019-11-05 07:21 | NUR ---
PACKET FAXED TO [facility]
--- NOTE | 2019-11-05 08:24 | NUR ---
pt remains asleep. RR even and unlabored.
[2019-11-05 08:45] LABS: HEMOGLOBIN A1C 5.4 % (4.5-6.2)
--- NOTE | 2019-11-05 10:18 | NUR ---
sleeping in bed. rr even and unlabored.
--- NOTE | 2019-11-05 11:04 | NUR ---
pt remains asleep. rr even and unlabored.
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
--- NOTE | 2019-11-05 12:49 | NUR ---
pts boyfriensrikanth at bedside. Pt continues to ask to talk to Ramy from [facility] so she can "get out of here". Ramy aware and stated he would come to see her shortly. Addendum: 11/05/19 at 1253 by NIRAV Ramy with [facility] at bedside.
[2019-11-05 13:27] VITALS: BP 135/82
== END 2019-11-05 13:31 ==
LOC: ER 23:50
DX: F23 Brief psychotic disorder (principal); F10.959 Alcohol use, unspecified with alcohol-induced psychotic disorder, unspecified; E03.9 Hypothyroidism, unspecified; E11.42 Type 2 diabetes mellitus with diabetic polyneuropathy; J45.909 Unspecified asthma, uncomplicated; G89.29 Other chronic pain; F41.9 Anxiety disorder, unspecified; F32.9 Major depressive disorder, single episode, unspecified; F20.9 Schizophrenia, unspecified; Z90.710 Acquired absence of both cervix and uterus; Z90.49 Acquired absence of other specified parts of digestive tract; Z98.890 Other specified postprocedural states; Z56.0 Unemployment, unspecified; Z79.2 Long term (current) use of antibiotics; Z79.899 Other long term (current) drug therapy; Y90.9 Presence of alcohol in blood, level not specified
CPT/HCPCS: 36415; 80053; 80305; 80320; 80329; 81001; 81025; 83036; 84443; 85025; 96372; 99285; J1200; J1630; J2060

== ENCOUNTER 2019-11-07 08:45 | Emergency (ER) | payer MEDICAID ==
[~2019-11-07] VITALS: Ht 167.6 cm; Wt 31.8 kg
[2019-11-07 08:54] VITALS: BP 123/80
[2019-11-07] MEDS ORDERED: HYDROcodone/acetaminophen 5mg/325mg tablet PO ONE (09:50)
--- NOTE | 2019-11-07 10:36 | NUR ---
Patient c/o increased pain, numbness and tingling in the right hand. Patient has positive radial pulses with a cap refill of <2 seconds. PA tatum aware of patietns current status. Tatum PA in room with patient at this time.
[2019-11-08] MEDS ORDERED: CEPH500C5 PO (22:38)
== END 2019-11-07 11:11 | disposition home or self-care (01) ==
LOC: ER 08:46
DX: M79.642 Pain in left hand (principal); E11.42 Type 2 diabetes mellitus with diabetic polyneuropathy; J45.909 Unspecified asthma, uncomplicated; E03.9 Hypothyroidism, unspecified; G89.29 Other chronic pain; F41.9 Anxiety disorder, unspecified; F32.9 Major depressive disorder, single episode, unspecified; F20.9 Schizophrenia, unspecified; Z90.89 Acquired absence of other organs; Z90.49 Acquired absence of other specified parts of digestive tract; Z98.890 Other specified postprocedural states; Z56.0 Unemployment, unspecified; Z79.899 Other long term (current) drug therapy
CPT/HCPCS: 29125; 73090; 73130; 99284

== ENCOUNTER 2019-11-08 21:16 | Emergency (ER) | payer MEDICAID ==
[~2019-11-08] VITALS: Ht 167.6 cm; Wt 79.5 kg
[2019-11-08 21:26] VITALS: BP 133/79
[2019-11-08] MEDS ORDERED: dexamethasone 4mg tablet PO ONE (22:15)
[2019-11-08] MEDS ORDERED: proCHLORperazine 10 MG/2 ml inj IM ONE (22:15)
[2019-11-08] MEDS ORDERED: ketorolac tromethamine 15mg/ml inj. IM ONE (22:15)
[2019-11-08] MEDS ORDERED: CEPH500C5 PO (22:38)
== END 2019-11-08 23:05 | disposition home or self-care (01) ==
LOC: ER 21:18
DX: G43.909 Migraine, unspecified, not intractable, without status migrainosus (principal); L03.114 Cellulitis of left upper limb; J45.909 Unspecified asthma, uncomplicated; E11.42 Type 2 diabetes mellitus with diabetic polyneuropathy; G89.29 Other chronic pain; F41.9 Anxiety disorder, unspecified; F32.9 Major depressive disorder, single episode, unspecified; F20.9 Schizophrenia, unspecified; Z90.49 Acquired absence of other specified parts of digestive tract; Z98.890 Other specified postprocedural states; Z56.0 Unemployment, unspecified; Z79.2 Long term (current) use of antibiotics; Z79.899 Other long term (current) drug therapy
CPT/HCPCS: 96372; 99284; J0780; J1885

== ENCOUNTER 2019-11-11 10:18 | Emergency (ER) | payer MEDICAID ==
[~2019-11-11] VITALS: Ht 167.6 cm; Wt 80.0 kg
[~2019-11-11 10:18] MED LIST changes: +CEPH500C5 PO; -HYDR-4353 PO
[2019-11-11 10:39] VITALS: BP 128/72
[2019-11-11] MEDS ORDERED: normal saline 1000ML IV soln IVB ONE (10:40)
[2019-11-11] MEDS ORDERED: LORazepam 2 mg/ml vial IV ONE (10:40)
[2019-11-11] MEDS ORDERED: metoclopramide 5 mg/ml inj IV ONE (10:40)
== END 2019-11-11 11:19 | disposition left against medical advice (07) ==
LOC: ER 10:19
DX: G43.909 Migraine, unspecified, not intractable, without status migrainosus (principal); R55 Syncope and collapse; E11.42 Type 2 diabetes mellitus with diabetic polyneuropathy; J45.909 Unspecified asthma, uncomplicated; E05.90 Thyrotoxicosis, unspecified without thyrotoxic crisis or storm; G89.29 Other chronic pain; F41.9 Anxiety disorder, unspecified; F32.9 Major depressive disorder, single episode, unspecified; F20.9 Schizophrenia, unspecified; E89.0 Postprocedural hypothyroidism; Z90.89 Acquired absence of other organs; Z56.0 Unemployment, unspecified; Z87.440 Personal history of urinary (tract) infections; Z79.899 Other long term (current) drug therapy
CPT/HCPCS: 93005; 99283

== ENCOUNTER 2019-11-11 12:37 | Emergency (ER) | payer MEDICAID ==
[~2019-11-11] VITALS: Ht 167.6 cm; Wt 80.0 kg
[2019-11-11 14:01] LABS: BASOPHILS # (AUTO) 0.1 X10'3 (0-0.2); BASOPHILS % (AUTO) 0.7 % (0-1); EOSINOPHILS # (AUTO) 0.2 X10'3 (0-0.9); EOSINOPHILS % (AUTO) 2.5 % (0-6); HEMATOCRIT 38.3 % (35.0-45.0); HEMOGLOBIN 12.9 g/dl (12.0-16.0); LYMPHOCYTES # (AUTO) 3.6 X10'3 (1.1-4.8); LYMPHOCYTES % (AUTO) 39.9 % (21-51); MEAN CORPUSCULAR HEMOGLOBIN 30.6 PG (27.0-31.0); MEAN CORPUSCULAR HGB CONC 33.5 g/dL (33.0-36.5); MEAN CORPUSCULAR VOLUME 91.2 FL (78-98); MEAN PLATELET VOLUME 6.7 FL (7.4-10.4); MONOCYTES # (AUTO) 0.4 X10'3 (0-0.9); MONOCYTES % (AUTO) 4.9 % (2-12); NEUTROPHILS # (AUTO) 4.7 X10'3 (1.8-7.7); PLATELET COUNT 289 X10'3 (140-440); RED CELL DISTRIBUTION WIDTH 15.4 % (11.5-14.5)
[2019-11-11] MEDS ORDERED: dexamethasone sod phosphate 10mg/ml inj IV STA (15:17)
[2019-11-11] MEDS ORDERED: normal saline 1000ML IV soln IVB ONE (15:20)
[2019-11-11] MEDS ORDERED: metoclopramide 5 mg/ml inj IV ONE (15:20)
[2019-11-11] MEDS ORDERED: ketorolac trometh. 30mg/ml inj. IV ONE (15:20)
[2019-11-11] MEDS ORDERED: LORazepam 2 mg/ml vial IV ONE (15:20)
[2019-11-11 17:18] VITALS: BP 121/56
== END 2019-11-11 17:19 | disposition home or self-care (01) ==
LOC: ER 12:40
DX: G43.809 Other migraine, not intractable, without status migrainosus (principal); E11.42 Type 2 diabetes mellitus with diabetic polyneuropathy; J45.909 Unspecified asthma, uncomplicated; E05.90 Thyrotoxicosis, unspecified without thyrotoxic crisis or storm; G89.29 Other chronic pain; F41.9 Anxiety disorder, unspecified; F32.9 Major depressive disorder, single episode, unspecified; F20.9 Schizophrenia, unspecified; Z90.89 Acquired absence of other organs; Z90.710 Acquired absence of both cervix and uterus; Z90.49 Acquired absence of other specified parts of digestive tract; Z56.0 Unemployment, unspecified; Z79.2 Long term (current) use of antibiotics; Z79.899 Other long term (current) drug therapy
CPT/HCPCS: 36415; 70450; 85025; 93005; 96374; 96375; 99285; J1100; J1885; J2060; J2765; J7030; 80053; 80320

== ENCOUNTER 2019-11-15 01:57 | Emergency (ER) | payer MEDICAID ==
[~2019-11-15] VITALS: Ht 167.6 cm; Wt 74.5 kg
[2019-11-15 02:06] VITALS: BP 130/75
[2019-11-15] MEDS ORDERED: acetaminophen 325mg tablet PO ONE (03:55)
[2019-11-15] MEDS ORDERED: ondansetron 4mg rapidly disintigrating tab PO ONE ×2 (05:45→05:55)
== END 2019-11-15 06:23 | disposition home or self-care (01) ==
LOC: ER 01:58
DX: G43.909 Migraine, unspecified, not intractable, without status migrainosus (principal); J45.909 Unspecified asthma, uncomplicated; E11.42 Type 2 diabetes mellitus with diabetic polyneuropathy; E05.90 Thyrotoxicosis, unspecified without thyrotoxic crisis or storm; G89.29 Other chronic pain; Z56.0 Unemployment, unspecified; Z90.49 Acquired absence of other specified parts of digestive tract; Z79.899 Other long term (current) drug therapy
CPT/HCPCS: 99283

== ENCOUNTER 2019-12-06 13:34 | Emergency (ER) | payer MEDICAID ==
[~2019-12-06] VITALS: Ht 167.6 cm; Wt 77.4 kg
[~2019-12-06 13:34] MED LIST changes: -CEPH500C5 PO; -CLIN-90 PO; +CLIN-97 PO
[2019-12-06 14:17] LABS: BASOPHILS # (AUTO) 0.1 X10'3 (0-0.2); BASOPHILS % (AUTO) 0.9 % (0-1); EOSINOPHILS # (AUTO) 0.5 X10'3 (0-0.9); EOSINOPHILS % (AUTO) 4.4 % (0-6); HEMATOCRIT 40.8 % (35.0-45.0); LYMPHOCYTES # (AUTO) 3.4 X10'3 (1.1-4.8); LYMPHOCYTES % (AUTO) 32.5 % (21-51); MEAN CORPUSCULAR HEMOGLOBIN 30.4 PG (27.0-31.0); MEAN CORPUSCULAR HGB CONC 34.2 g/dL (33.0-36.5); MEAN CORPUSCULAR VOLUME 88.7 FL (78-98); MEAN PLATELET VOLUME 6.8 FL (7.4-10.4); MONOCYTES # (AUTO) 0.5 X10'3 (0-0.9); MONOCYTES % (AUTO) 4.4 % (2-12); NEUTROPHILS # (AUTO) 6.1 X10'3 (1.8-7.7); NEUTROPHILS % (AUTO) 57.8 % (42-75); PLATELET COUNT 373 X10'3 (140-440); WHITE BLOOD COUNT 10.5 X10'3 (4.5-11.0)
[2019-12-06 14:30] LABS: ALANINE AMINOTRANSFERASE 26 U/L (12-78); ALBUMIN/GLOBULIN RATIO 0.9 (1.1-1.5); ALKALINE PHOSPHATASE 98 IU/L (46-116); ANION GAP 9 (8-16); ASPARTATE AMINO TRANSFERASE 25 U/L (10-37); BILIRUBIN,TOTAL 0.2 MG/DL (0.1-1.0); BLOOD UREA NITROGEN 15 MG/DL (7-18); BUN/CREATININE RATIO 17.4 (6.6-38.0); CALCIUM 8.4 MG/DL (8.5-10.1); CHLORIDE 102 MMOL/L (99-107); CREATININE 0.86 MG/DL (0.40-0.90); GLUCOSE 82 MG/DL (70-104); SODIUM 137 MMOL/L (135-145); TOTAL CARBON DIOXIDE 26.4 MMOL/L (24-32); TOTAL PROTEIN 8.4 G/DL (6.4-8.2); eGFR > 90 ML/MIN
[2019-12-06 15:34] VITALS: BP 119/71
[2019-12-06] MEDS ORDERED: acetaminophen 325mg tablet PO ONE (16:15)
[2019-12-06 16:18] LABS: CLARITY,URINE CLEAR (Clear); COLOR,URINE YELLOW (Yellow); GLUCOSE, URINE NEGATIVE (Neg); KETONES,URINE NEGATIVE (Neg); LEUKOCYTE ESTERASE ,URINE NEGATIVE (Neg); NITRITES, URINE NEGATIVE (Neg); OCCULT BLOOD,URINE NEGATIVE (Neg); PROTEIN,URINE NEGATIVE (Neg); UROBILINOGEN,URINE 0.2 E.U/dL (0.2-1.0)
[2019-12-06 16:24] LABS: UA COLLECTION TYPE CLN CATCH MIDSTREAM
== END 2019-12-06 16:48 | disposition home or self-care (01) ==
LOC: ER 13:35
DX: S40.012A Contusion of left shoulder, initial encounter (principal); S50.11XA Contusion of right forearm, initial encounter; S20.229A Contusion of unspecified back wall of thorax, initial encounter; G43.909 Migraine, unspecified, not intractable, without status migrainosus; M54.2 Cervicalgia; R05 Cough; R07.89 Other chest pain; E11.42 Type 2 diabetes mellitus with diabetic polyneuropathy; R19.7 Diarrhea, unspecified; J45.909 Unspecified asthma, uncomplicated; E05.90 Thyrotoxicosis, unspecified without thyrotoxic crisis or storm; G89.29 Other chronic pain; F41.9 Anxiety disorder, unspecified; F32.9 Major depressive disorder, single episode, unspecified; F20.9 Schizophrenia, unspecified; Z90.49 Acquired absence of other specified parts of digestive tract; Z90.89 Acquired absence of other organs; Z98.890 Other specified postprocedural states; Z56.0 Unemployment, unspecified; Z79.899 Other long term (current) drug therapy; X58.XXXA Exposure to other specified factors, initial encounter; Y93.89 Activity, other specified; Y92.89 Other specified places as the place of occurrence of the external cause; Y99.8 Other external cause status
CPT/HCPCS: 36415; 80053; 81003; 85025; 93005; 99284

== ENCOUNTER 2019-12-15 15:03 | Emergency (ER) | payer MEDICAID ==
[~2019-12-15] VITALS: Ht 167.6 cm; Wt 82.3 kg
[2019-12-15 15:09] VITALS: BP 114/73
[2019-12-15] MEDS ORDERED: HYDR-3965 PO (15:22)
[2019-12-15] MEDS ORDERED: acetaminophen 325mg tablet PO ONE (15:25)
[2019-12-15] MEDS ORDERED: HYDROcodone/acetaminophen 5mg/325mg tablet PO ONE (15:25)
== END 2019-12-15 15:42 | disposition home or self-care (01) ==
LOC: ER 15:04
DX: K08.89 Other specified disorders of teeth and supporting structures (principal); R68.84 Jaw pain; G43.909 Migraine, unspecified, not intractable, without status migrainosus; E05.90 Thyrotoxicosis, unspecified without thyrotoxic crisis or storm; G89.29 Other chronic pain; F41.9 Anxiety disorder, unspecified; E89.0 Postprocedural hypothyroidism; F32.9 Major depressive disorder, single episode, unspecified; F20.9 Schizophrenia, unspecified; J45.909 Unspecified asthma, uncomplicated; E11.42 Type 2 diabetes mellitus with diabetic polyneuropathy; Z87.440 Personal history of urinary (tract) infections; Z90.89 Acquired absence of other organs; Z56.0 Unemployment, unspecified; Z79.899 Other long term (current) drug therapy
CPT/HCPCS: 99284

== ENCOUNTER 2019-12-18 20:55 | Emergency (ER) | payer MEDICAID ==
[~2019-12-18] VITALS: Ht 167.6 cm; Wt 85.5 kg
[~2019-12-18 20:55] MED LIST changes: +HYDR-3965 PO
[2019-12-18 21:03] VITALS: BP 117/86
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
[2019-12-18] MEDS ORDERED: traMADol 50MG tablet PO ONE (21:15)
[2019-12-18] MEDS ORDERED: IBUP-1984 PO (21:38)
[2019-12-18] MEDS ORDERED: ibuprofen tablet 400 MG TABLET PO ONE (21:40)
== END 2019-12-18 22:06 | disposition home or self-care (01) ==
LOC: ER 20:56
DX: M25.562 Pain in left knee (principal); M25.572 Pain in left ankle and joints of left foot; E11.42 Type 2 diabetes mellitus with diabetic polyneuropathy; J45.909 Unspecified asthma, uncomplicated; G89.29 Other chronic pain; F41.9 Anxiety disorder, unspecified; F32.9 Major depressive disorder, single episode, unspecified; F20.9 Schizophrenia, unspecified; Z90.49 Acquired absence of other specified parts of digestive tract; Z98.890 Other specified postprocedural states; Z56.0 Unemployment, unspecified; Z79.2 Long term (current) use of antibiotics; Z79.899 Other long term (current) drug therapy
CPT/HCPCS: 73564; 73610; 99284

== ENCOUNTER 2019-12-20 17:26 | Emergency (ER) | payer MEDICAID ==
[~2019-12-20] VITALS: Ht 167.6 cm; Wt 85.5 kg
[~2019-12-20 17:26] MED LIST changes: +IBUP-1984 PO
[2019-12-20 17:32] VITALS: BP 123/63
[2019-12-20] MEDS ORDERED: HYDROcodone/acetaminophen 5mg/325mg tablet PO ONE (17:50)
[2019-12-20] MEDS ORDERED: ondansetron 4mg rapidly disintigrating tab PO ONE (17:50)
[2019-12-20] MEDS ORDERED: ONDA4TAB6 PO (17:52)
[2019-12-20] MEDS ORDERED: HYDR-4383 PO (17:52)
== END 2019-12-20 17:59 | disposition home or self-care (01) ==
LOC: ER 17:26
DX: M27.3 Alveolitis of jaws (principal); G43.909 Migraine, unspecified, not intractable, without status migrainosus; E05.90 Thyrotoxicosis, unspecified without thyrotoxic crisis or storm; G89.29 Other chronic pain; E11.42 Type 2 diabetes mellitus with diabetic polyneuropathy; Z90.49 Acquired absence of other specified parts of digestive tract; Z56.0 Unemployment, unspecified; Z79.899 Other long term (current) drug therapy
CPT/HCPCS: 99283

== ENCOUNTER 2019-12-26 12:36 | Emergency (ER) | payer MEDICAID ==
[~2019-12-26] VITALS: Ht 167.6 cm; Wt 95.0 kg
[~2019-12-26 12:36] MED LIST changes: -IBUP-1984 PO
[2019-12-26 12:43] VITALS: BP 125/67
[2019-12-26] MEDS ORDERED: BENZ-16 PO (13:45)
[2019-12-26] MEDS ORDERED: METH4TAB81 PO (13:45)
[2019-12-26] MEDS ORDERED: AZIT250T83 PO (13:45)
== END 2019-12-26 13:59 | disposition home or self-care (01) ==
LOC: ER 12:37
DX: J45.909 Unspecified asthma, uncomplicated (principal); E11.42 Type 2 diabetes mellitus with diabetic polyneuropathy; G89.29 Other chronic pain; F41.9 Anxiety disorder, unspecified; F32.9 Major depressive disorder, single episode, unspecified; F20.9 Schizophrenia, unspecified; F17.200 Nicotine dependence, unspecified, uncomplicated; Z90.49 Acquired absence of other specified parts of digestive tract; Z56.0 Unemployment, unspecified; Z98.890 Other specified postprocedural states; Z79.2 Long term (current) use of antibiotics; Z79.899 Other long term (current) drug therapy
CPT/HCPCS: 99283

== ENCOUNTER 2020-01-13 11:54 | Emergency (ER) | payer MEDICAID ==
[~2020-01-13] VITALS: Ht 167.6 cm; Wt 85.6 kg
[~2020-01-13 11:54] MED LIST changes: +BENZ-16 PO
[2020-01-13 12:04] VITALS: BP 109/73
[2020-01-13 14:04] LABS: CLARITY,URINE CLEAR (Clear); COLOR,URINE YELLOW (Yellow); GLUCOSE, URINE NEGATIVE (Neg); KETONES,URINE NEGATIVE (Neg); LEUKOCYTE ESTERASE ,URINE NEGATIVE (Neg); NITRITES, URINE NEGATIVE (Neg); OCCULT BLOOD,URINE NEGATIVE (Neg); PROTEIN,URINE NEGATIVE (Neg); UROBILINOGEN,URINE 0.2 E.U/dL (0.2-1.0)
[2020-01-13 14:05] LABS: UA COLLECTION TYPE CLN CATCH MIDSTREAM; URINE HCG NEGATIVE (NEG)
--- NOTE | 2020-01-13 14:23 | NUR ---
DR. NOLAN IN WITH PATIENT.
[2020-01-13 14:29] LABS: BASOPHILS # (AUTO) 0.1 X10'3 (0-0.2); EOSINOPHILS # (AUTO) 0.3 X10'3 (0-0.9); EOSINOPHILS % (AUTO) 4.3 % (0-6); HEMATOCRIT 39.8 % (35.0-45.0); HEMOGLOBIN 13.1 g/dl (12.0-16.0); LYMPHOCYTES # (AUTO) 2.9 X10'3 (1.1-4.8); LYMPHOCYTES % (AUTO) 40.8 % (21-51); MEAN CORPUSCULAR HEMOGLOBIN 30.1 PG (27.0-31.0); MEAN CORPUSCULAR HGB CONC 32.8 g/dL (33.0-36.5); MEAN CORPUSCULAR VOLUME 91.6 FL (78-98); MEAN PLATELET VOLUME 6.9 FL (7.4-10.4); MONOCYTES # (AUTO) 0.3 X10'3 (0-0.9); MONOCYTES % (AUTO) 3.7 % (2-12); NEUTROPHILS # (AUTO) 3.6 X10'3 (1.8-7.7); NEUTROPHILS % (AUTO) 50.2 % (42-75); PLATELET COUNT 263 X10'3 (140-440); RED BLOOD COUNT 4.34 X10'6 (4.20-5.60); RED CELL DISTRIBUTION WIDTH 15.5 % (11.5-14.5); WHITE BLOOD COUNT 7.2 X10'3 (4.5-11.0)
[2020-01-13 14:57] LABS: ALANINE AMINOTRANSFERASE 30 U/L (12-78); ALBUMIN 3.7 G/DL (3.4-5.0); ALBUMIN/GLOBULIN RATIO 0.9 (1.1-1.5); ALKALINE PHOSPHATASE 138 IU/L (46-116); ANION GAP 9 (8-16); ASPARTATE AMINO TRANSFERASE 30 U/L (10-37); BILIRUBIN,TOTAL 0.2 MG/DL (0.1-1.0); BLOOD UREA NITROGEN 18 MG/DL (7-18); BUN/CREATININE RATIO 22.2 (6.6-38.0); CALCIUM 8.5 MG/DL (8.5-10.1); CHLORIDE 104 MMOL/L (99-107); CREATININE 0.81 MG/DL (0.40-0.90); GLUCOSE 87 MG/DL (70-104); POTASSIUM 4.2 MMOL/L (3.5-5.1); SODIUM 141 MMOL/L (135-145); TOTAL CARBON DIOXIDE 27.6 MMOL/L (24-32); TOTAL PROTEIN 7.7 G/DL (6.4-8.2); eGFR > 90 ML/MIN
[2020-01-13 15:04] LABS: BETA HCG,QUANTITATIVE < 1.0 mIU/ml; LIPASE 120 U/L (73-393)
== END 2020-01-13 14:43 | disposition left against medical advice (07) ==
LOC: ER 11:55
DX: R10.84 Generalized abdominal pain (principal); G43.909 Migraine, unspecified, not intractable, without status migrainosus; E11.42 Type 2 diabetes mellitus with diabetic polyneuropathy; J45.909 Unspecified asthma, uncomplicated; G89.29 Other chronic pain; F41.9 Anxiety disorder, unspecified; F32.9 Major depressive disorder, single episode, unspecified; E05.90 Thyrotoxicosis, unspecified without thyrotoxic crisis or storm; F20.9 Schizophrenia, unspecified; Z90.49 Acquired absence of other specified parts of digestive tract; Z90.89 Acquired absence of other organs; Z56.0 Unemployment, unspecified; Z79.899 Other long term (current) drug therapy
CPT/HCPCS: 36415; 80053; 81003; 81025; 83690; 84702; 85025; 99283

== ENCOUNTER 2020-01-22 16:02 | Emergency (ER) | payer MEDICAID ==
[~2020-01-22] VITALS: Ht 167.6 cm; Wt 90.9 kg
[~2020-01-22 16:02] MED LIST changes: -HYDR-3965 PO
[2020-01-22 16:14] VITALS: BP 108/67
[2020-01-22] MEDS ORDERED: CLIN-97 PO (16:44)
== END 2020-01-22 17:11 | disposition home or self-care (01) ==
LOC: ER 16:03
DX: K04.01 Reversible pulpitis (principal); G43.909 Migraine, unspecified, not intractable, without status migrainosus; E11.42 Type 2 diabetes mellitus with diabetic polyneuropathy; J45.909 Unspecified asthma, uncomplicated; G89.29 Other chronic pain; F41.9 Anxiety disorder, unspecified; F32.9 Major depressive disorder, single episode, unspecified; F20.9 Schizophrenia, unspecified; E05.90 Thyrotoxicosis, unspecified without thyrotoxic crisis or storm; Z98.890 Other specified postprocedural states; Z90.49 Acquired absence of other specified parts of digestive tract; Z90.89 Acquired absence of other organs; Z56.0 Unemployment, unspecified; Z79.899 Other long term (current) drug therapy
CPT/HCPCS: 99283

== ENCOUNTER 2020-01-29 13:49 | Emergency (ER) | payer MEDICAID ==
[~2020-01-29] VITALS: Ht 167.6 cm; Wt 90.9 kg
[~2020-01-29 13:49] MED LIST changes: -BENZ-16 PO
[2020-01-29] MEDS ORDERED: ketorolac tromethamine 15mg/ml inj. IM ONE (15:10)
[2020-01-29 15:45] VITALS: BP 117/68
[2020-01-29 16:02] LABS: BASOPHILS # (AUTO) 0.1 X10'3 (0-0.2); BASOPHILS % (AUTO) 0.8 % (0-1); EOSINOPHILS # (AUTO) 0.3 X10'3 (0-0.9); EOSINOPHILS % (AUTO) 3.9 % (0-6); HEMATOCRIT 39.2 % (35.0-45.0); LYMPHOCYTES # (AUTO) 2.3 X10'3 (1.1-4.8); LYMPHOCYTES % (AUTO) 35.3 % (21-51); MEAN CORPUSCULAR HEMOGLOBIN 30.2 PG (27.0-31.0); MEAN CORPUSCULAR HGB CONC 33.1 g/dL (33.0-36.5); MEAN CORPUSCULAR VOLUME 91.1 FL (78-98); MEAN PLATELET VOLUME 6.8 FL (7.4-10.4); MONOCYTES # (AUTO) 0.4 X10'3 (0-0.9); NEUTROPHILS # (AUTO) 3.6 X10'3 (1.8-7.7); PLATELET COUNT 269 X10'3 (140-440); RED BLOOD COUNT 4.31 X10'6 (4.20-5.60); RED CELL DISTRIBUTION WIDTH 14.7 % (11.5-14.5); WHITE BLOOD COUNT 6.6 X10'3 (4.5-11.0)
[2020-01-29 16:10] LABS: ALANINE AMINOTRANSFERASE 44 U/L (12-78); ALBUMIN 3.7 G/DL (3.4-5.0); ALKALINE PHOSPHATASE 127 IU/L (46-116); ANION GAP 3 (8-16); ASPARTATE AMINO TRANSFERASE 31 U/L (10-37); BILIRUBIN,TOTAL 0.1 MG/DL (0.1-1.0); CALCIUM 8.8 MG/DL (8.5-10.1); CHLORIDE 106 MMOL/L (99-107); GLUCOSE 94 MG/DL (70-104); POTASSIUM 4.6 MMOL/L (3.5-5.1); SODIUM 140 MMOL/L (135-145); TOTAL CARBON DIOXIDE 31.5 MMOL/L (24-32); TOTAL PROTEIN 7.4 G/DL (6.4-8.2); eGFR > 90 ML/MIN
[2020-01-29 16:13] LABS: BLOOD UREA NITROGEN 13 MG/DL (7-18); BUN/CREATININE RATIO 16.3 (6.6-38.0)
[2020-01-29 16:42] LABS: URINE HCG NEGATIVE (NEG)
[2020-01-29 16:59] LABS: CLARITY,URINE CLEAR (Clear); COLOR,URINE YELLOW (Yellow); GLUCOSE, URINE NEGATIVE (Neg); KETONES,URINE NEGATIVE (Neg); LEUKOCYTE ESTERASE ,URINE TRACE (Neg); NITRITES, URINE NEGATIVE (Neg); OCCULT BLOOD,URINE NEGATIVE (Neg); PROTEIN,URINE NEGATIVE (Neg); UROBILINOGEN,URINE 0.2 E.U/dL (0.2-1.0)
[2020-01-29] MEDS ORDERED: dicyclomine 10 MG capsule PO ONE (17:10)
[2020-01-29] MEDS ORDERED: DICY10CA88 PO (17:17)
[2020-01-29 17:18] LABS: UA COLLECTION TYPE STRAIGHT CATH
[2020-01-29 17:20] LABS: RBC,URINE NONE SEEN /HPF (0-2); SQUAMOUS EPITHELIAL CELL,UR FEW /LPF (FEW)
[2020-01-29 17:21] LABS: BACTERIA,URINE FEW /HPF (Neg)
[2020-01-29 23:02] LABS: OCCULT BLOOD STOOL NEGATIVE (Neg)
== END 2020-01-29 18:17 | disposition home or self-care (01) ==
LOC: ER 13:50
DX: R10.9 Unspecified abdominal pain (principal); K62.5 Hemorrhage of anus and rectum; E11.42 Type 2 diabetes mellitus with diabetic polyneuropathy; J45.909 Unspecified asthma, uncomplicated; E05.90 Thyrotoxicosis, unspecified without thyrotoxic crisis or storm; G89.29 Other chronic pain; F41.9 Anxiety disorder, unspecified; F32.9 Major depressive disorder, single episode, unspecified; F20.9 Schizophrenia, unspecified; Z87.440 Personal history of urinary (tract) infections; Z90.89 Acquired absence of other organs; Z98.890 Other specified postprocedural states; Z56.0 Unemployment, unspecified; Z79.2 Long term (current) use of antibiotics; Z79.899 Other long term (current) drug therapy
CPT/HCPCS: 36415; 76700; 80053; 81001; 81025; 82272; 85025; 87088; 96372; 99284; J1885

== ENCOUNTER 2020-02-18 09:45 | Emergency (ER) | payer MEDICAID ==
[~2020-02-18] VITALS: Ht 167.6 cm; Wt 88.3 kg
[2020-02-18] MEDS ORDERED: ketorolac tromethamine 15mg/ml inj. IM ONE (11:00)
[2020-02-18] MEDS ORDERED: POLY17PO10 PO (11:28)
[2020-02-18 11:48] VITALS: BP 108/68
[2020-02-18 12:05] LABS: URINE HCG NEGATIVE (NEG)
[2020-02-18 12:08] LABS: CLARITY,URINE CLEAR (Clear); COLOR,URINE YELLOW (Yellow); GLUCOSE, URINE NEGATIVE (Neg); KETONES,URINE NEGATIVE (Neg); LEUKOCYTE ESTERASE ,URINE NEGATIVE (Neg); NITRITES, URINE NEGATIVE (Neg); OCCULT BLOOD,URINE NEGATIVE (Neg); PH,URINE 6.5 (4.8-8.0); PROTEIN,URINE NEGATIVE (Neg); UROBILINOGEN,URINE 0.2 E.U/dL (0.2-1.0)
[2020-02-18 12:10] LABS: UA COLLECTION TYPE CLN CATCH MIDSTREAM
[2020-03-19] MEDS ORDERED: CYCL-1 PO (15:15)
[2020-03-19] MEDS ORDERED: NAPR-56 PO (15:15)
== END 2020-02-18 11:42 | disposition home or self-care (01) ==
LOC: ER 09:46
DX: K42.9 Umbilical hernia without obstruction or gangrene (principal); K59.00 Constipation, unspecified; J45.909 Unspecified asthma, uncomplicated; E11.42 Type 2 diabetes mellitus with diabetic polyneuropathy; G89.29 Other chronic pain; F41.9 Anxiety disorder, unspecified; F32.9 Major depressive disorder, single episode, unspecified; F20.9 Schizophrenia, unspecified; Z90.49 Acquired absence of other specified parts of digestive tract; Z98.890 Other specified postprocedural states; Z56.0 Unemployment, unspecified; Z79.2 Long term (current) use of antibiotics; Z79.899 Other long term (current) drug therapy
CPT/HCPCS: 81003; 81025; 96372; 99283; J1885

== ENCOUNTER 2020-02-22 13:12 | Emergency (ER) | payer MEDICAID ==
[~2020-02-22] VITALS: Ht 167.6 cm; Wt 87.7 kg
[2020-02-22] MEDS ORDERED: LIDOcaine 5% patch TP STA (14:18)
[2020-02-22] MEDS ORDERED: LIDO700A32 TOP (14:28)
[2020-02-22 14:42] VITALS: BP 129/74
[2020-02-23] MEDS ORDERED: THO10T PO (04:56)
[2020-02-23] MEDS ORDERED: PRAZ2CAP2 PO (04:56)
[2020-02-23] MEDS ORDERED: RISP1TAB3 PO (04:56)
[2020-02-23] MEDS ORDERED: FLUO20CA39 PO (04:56)
[2020-02-23] MEDS ORDERED: SYN0.088T PO (04:56)
[2020-02-23] MEDS ORDERED: GABA300C PO (04:56)
== END 2020-02-22 14:45 | disposition home or self-care (01) ==
LOC: ER 13:13
DX: N64.4 Mastodynia (principal); G89.29 Other chronic pain; R10.84 Generalized abdominal pain; G43.909 Migraine, unspecified, not intractable, without status migrainosus; J45.909 Unspecified asthma, uncomplicated; E05.90 Thyrotoxicosis, unspecified without thyrotoxic crisis or storm; E11.42 Type 2 diabetes mellitus with diabetic polyneuropathy; F32.9 Major depressive disorder, single episode, unspecified; F20.9 Schizophrenia, unspecified; Z90.49 Acquired absence of other specified parts of digestive tract; Z98.890 Other specified postprocedural states; Z56.0 Unemployment, unspecified; Z79.899 Other long term (current) drug therapy
CPT/HCPCS: 99282

== ENCOUNTER 2020-02-22 22:25 | Emergency (ER) | payer MEDICAID ==
[~2020-02-22] VITALS: Ht 167.6 cm; Wt 85.5 kg
[~2020-02-22 22:25] MED LIST changes: +LIDO700A32 TOP
[2020-02-22 22:54] LABS: BASOPHILS # (AUTO) 0.1 X10'3 (0-0.2); BASOPHILS % (AUTO) 0.9 % (0-1); EOSINOPHILS # (AUTO) 0.5 X10'3 (0-0.9); EOSINOPHILS % (AUTO) 6.3 % (0-6); HEMATOCRIT 38.9 % (35.0-45.0); LYMPHOCYTES # (AUTO) 3.6 X10'3 (1.1-4.8); LYMPHOCYTES % (AUTO) 42.4 % (21-51); MEAN CORPUSCULAR HGB CONC 33.5 g/dL (33.0-36.5); MEAN CORPUSCULAR VOLUME 89.5 FL (78-98); MEAN PLATELET VOLUME 7.2 FL (7.4-10.4); MONOCYTES # (AUTO) 0.4 X10'3 (0-0.9); MONOCYTES % (AUTO) 4.6 % (2-12); NEUTROPHILS # (AUTO) 3.9 X10'3 (1.8-7.7); NEUTROPHILS % (AUTO) 45.8 % (42-75); PLATELET COUNT 238 X10'3 (140-440); RED BLOOD COUNT 4.35 X10'6 (4.20-5.60); RED CELL DISTRIBUTION WIDTH 14.1 % (11.5-14.5); WHITE BLOOD COUNT 8.5 X10'3 (4.5-11.0)
[2020-02-22] MEDS ORDERED: LORazepam 1 MG tablet PO ONE (22:55)
[2020-02-22] MEDS ORDERED: OLANZapine 2.5MG tablet PO ONE (22:57)
[2020-02-22] MEDS ORDERED: haloperidol lactate 5mg/ml inj IM ONE ×2 (23:00→23:10)
[2020-02-22] MEDS ORDERED: diphenhydrAMINE 50 mg/ml inj IM ONE (23:00)
[2020-02-22] MEDS ORDERED: acetaminophen 325mg tablet PO ONE (23:00)
[2020-02-22] MEDS ORDERED: diphenhydrAMINE 50 mg/ml inj ONE (23:01)
[2020-02-22] MEDS ORDERED: haloperidol lactate 5mg/ml inj ONE (23:01)
--- NOTE | 2020-02-22 23:11 | NUR ---
CONTACTED "JIL" AT PATIENT'S REQUEST TO INFORM HIM THAT SHE IS BEING HELD ON 1537. LEFT MESSAGE INFORMED PATIENT
--- NOTE | 2020-02-22 23:18 | NUR ---
MICAELA REMOVED FROM OMNICELL BY OVERRIDE R/T EMERGENT SITUATION.
[2020-02-22 23:29] LABS: ALANINE AMINOTRANSFERASE 34 U/L (12-78); ALKALINE PHOSPHATASE 127 IU/L (46-116); ANION GAP 7 (8-16); ASPARTATE AMINO TRANSFERASE 24 U/L (10-37); BILIRUBIN,TOTAL 0.2 MG/DL (0.1-1.0); BLOOD UREA NITROGEN 11 MG/DL (7-18); BUN/CREATININE RATIO 12.9 (6.6-38.0); CALCIUM 8.4 MG/DL (8.5-10.1); CHLORIDE 106 MMOL/L (99-107); CREATININE 0.85 MG/DL (0.40-0.90); GLUCOSE 95 MG/DL (70-104); POTASSIUM 3.5 MMOL/L (3.5-5.1); SODIUM 139 MMOL/L (135-145); TOTAL CARBON DIOXIDE 26.5 MMOL/L (24-32); TOTAL PROTEIN 7.9 G/DL (6.4-8.2); eGFR > 90 ML/MIN
[2020-02-22] MEDS ORDERED: LORazepam 2 mg/ml vial IM ONE (23:30)
[2020-02-22 23:38] LABS: ETHANOL 0.062 GM/DL (0.0-0.010)
[2020-02-22 23:40] LABS: ACETAMINOPHEN < 2.0 UG/ML (10-30)
[2020-02-23 00:59] LABS: HCG SERUM QL NEGATIVE
[2020-02-23 01:50] LABS: CLARITY,URINE CLEAR (Clear); COLOR,URINE YELLOW (Yellow); GLUCOSE, URINE NEGATIVE (Neg); KETONES,URINE NEGATIVE (Neg); LEUKOCYTE ESTERASE ,URINE TRACE (Neg); NITRITES, URINE NEGATIVE (Neg); OCCULT BLOOD,URINE NEGATIVE (Neg); PROTEIN,URINE NEGATIVE (Neg); UROBILINOGEN,URINE 0.2 E.U/dL (0.2-1.0)
[2020-02-23] MEDS ORDERED: ketorolac tromethamine 15mg/ml inj. IM ONE (01:50)
[2020-02-23 01:55] LABS: UA COLLECTION TYPE STRAIGHT CATH
[2020-02-23 01:56] LABS: BACTERIA,URINE FEW /HPF (Neg); RBC,URINE NONE SEEN /HPF (0-2); SQUAMOUS EPITHELIAL CELL,UR FEW /LPF (FEW)
[2020-02-23 02:04] LABS: URINE AMPHETAMINE SCREEN POSITIVE (Neg); URINE BARBITUATE SCREEN NEGATIVE (Neg); URINE BENZODIAZEPINES SCREEN POSITIVE (Neg); URINE CANNABINOID SCREEN POSITIVE (Neg); URINE COCAINE SCREEN NEGATIVE (Neg); URINE METHADONE SCREEN NEGATIVE (Neg); URINE OPIATE SCREEN POSITIVE (Neg); URINE PHENCYCLIDINE SCREEN NEGATIVE (Neg)
[2020-02-23] MEDS ORDERED: LORazepam 2 mg/ml vial IM ONE ×2 (03:05→10:10)
[2020-02-23] MEDS ORDERED: ziprasidone IM 20mg inj **IM only IM ONE ×2 (03:05)
[2020-02-23] MEDS ORDERED: SYN0.088T PO (04:56)
[2020-02-23] MEDS ORDERED: GABA300C PO (04:56)
[2020-02-23] MEDS ORDERED: FLUO20CA39 PO (04:56)
[2020-02-23] MEDS ORDERED: PRAZ2CAP2 PO (04:56)
[2020-02-23] MEDS ORDERED: RISP1TAB3 PO (04:56)
[2020-02-23] MEDS ORDERED: THO10T PO (04:56)
--- NOTE | 2020-02-23 05:33 | NUR ---
PATIENT HAS BEEN NON-COMPLIANT ALL NIGHT LONG. PATIENT HAS NOT BEEN ABLE FOLLOW DIRECTIONS, STAY IN HER ROOM OR REMAIN DE-ESCALATED. AFTER NUMEROUS MEDICATION ADMINISTRATIONS, PATIENT REMAINED RESTLESS. SHE BEGAN BEING VERBALLY AGGRESSIVE TOWARDS NURSING STAFF, AT WHICH POINT THE PRIMARY NURSE AND TECH GUIDED PATIENT TO HER GURNEY. THE PATIENT THEN ESCALATED EVEN MORE AND RAN FOR THE DOOR SCREAMING WANTING TO LEAVE. SECURITY WAS CALLED. AND PATIENT WAS DE-ESCALATED AGAIN. HOWEVER , [employer] WAS CALLED TO HELP ADDRESS THE ISSUE REGARDING THE PATIENT LEAVING THE FACILITY. [employer] STATED THAT STAFF IS FREE TO LET THE PATIENT LEAVE AND THAT THEY WILL LIKELY NOT RETURN THE PATIENT TO THE ED. [employer] ATTEMPTED TO DE-ESCALATE THE PATIENT WITHOUT SUCCESS.
[2020-02-23] MEDS ORDERED: nicotine 21mg patch - 24 hr TD ONE (06:25)
[2020-02-23] MEDS ORDERED: acetaminophen 325mg tablet PO ONE (06:40)
--- NOTE | 2020-02-23 06:42 | NUR ---
PATIENT REQUESTED PHONE TO SPEAK WITH FAMILY MEMBER. PATIENT WITHIN SIGHT OF STAFF AT ALL TIMES.
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
--- NOTE | 2020-02-23 07:30 | NUR ---
PT WALKED OUT TO THE PARKING LOT LOOKING FOR HER KIDS, EASILY REDIRECTABLE, AND RETURNED TO ROOM
--- NOTE | 2020-02-23 07:50 | NUR ---
BREAKING PRIMARY RN, PT IS IN ROOM, SITTING ON [place], TALKING ON THE PHONE WITH HER MOM
--- NOTE | 2020-02-23 08:45 | NUR ---
PATIENT REQUESTING TO SPEAK WITH [facility], PATIENT UPDATED [facility] NOT IN THE BUILDING OF YET, PATIENT EATING BREAKFAST, NO SIGNS OF DISTRESS NOTED.
[2020-02-23] MEDS ORDERED: dextrose 50%-water 50ml dispensing syringe IV ONE (09:15)
--- NOTE | 2020-02-23 10:00 | NUR ---
PATIENT ATTEMPTED TO LEAVE UNIT AGAIN, PATIENT UPSET, YELLING, STATES SHE JUST WANTS TO SEE HER KIDS AND IS WAITING FOR [facility] TO EVALUATE HER SO SHE CAN GO TO SEE HER THERAPIST. DR MEJIA AT BEDSIDE.
[2020-02-23] MEDS ORDERED: haloperidol lactate 5mg/ml inj IM ONE (10:10)
[2020-02-23] MEDS ORDERED: diphenhydrAMINE 50 mg/ml inj IM ONE (10:10)
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
--- NOTE | 2020-02-23 10:49 | NUR ---
BREAKING PRIMARY RN, [facility] IS IN WITH PT
[2020-02-23 11:40] VITALS: BP 135/86
[2020-02-23] MEDS ORDERED: acetaminophen 325mg tablet PO PRN (13:15)
== END 2020-02-23 11:42 | disposition home or self-care (01) ==
LOC: ER 22:25
DX: R45.851 Suicidal ideations (principal); F29 Unspecified psychosis not due to a substance or known physiological condition; G43.909 Migraine, unspecified, not intractable, without status migrainosus; E11.42 Type 2 diabetes mellitus with diabetic polyneuropathy; J45.909 Unspecified asthma, uncomplicated; G89.29 Other chronic pain; F41.9 Anxiety disorder, unspecified; F20.9 Schizophrenia, unspecified; F32.9 Major depressive disorder, single episode, unspecified; E05.90 Thyrotoxicosis, unspecified without thyrotoxic crisis or storm; Z90.49 Acquired absence of other specified parts of digestive tract; Z98.890 Other specified postprocedural states; Z56.0 Unemployment, unspecified; Z79.899 Other long term (current) drug therapy
CPT/HCPCS: 36415; 80053; 80305; 80320; 80329; 81001; 84443; 84703; 85025; 96372; 99285; J1200; J1630; J1885; J2060; J3486

== ENCOUNTER 2020-03-01 06:34 | Emergency (ER) | payer MEDICAID ==
[~2020-03-01] VITALS: Ht 167.6 cm; Wt 85.4 kg
[~2020-03-01 06:34] MED LIST changes: -ACET-2119 PO; -ALBU18HF2 INH; -ALBU6.7H9 INH; -ALPR-624 PO; -BECL7.3A INH; -CHLO118M PO; -CLIN-97 PO; -CLIN150C98 PO; -CYCL-1 PO; -DICY10CA88 PO; -FLUO-167 PO; +GABA300C PO; -GLYB2.5T4 PO; -HYDR-3964 PO; -HYDR-4383 PO; -IBUP-1985 PO; -IBUP-1986 PO; -LEVO125T PO; -LIDO700A32 TOP; -METH-604 PO; -METH4TAB81 PO; -NAPR500T6 PO; -ONDA4TAB6 PO; -ONDA8TAB6 PO; -PHEN-716 PO; +PRAZ2CAP2 PO; -PREG50CA PO; -PROP60TA19 PO; +RISP1TAB3 PO; +SYN0.088T PO; +THO10T PO; -VALA10002 PO
[2020-03-01] MEDS ORDERED: ketorolac trometh inj. 60 MG/2 ML VIAL IM ONE (07:30)
[2020-03-01 07:56] LABS: BASOPHILS % (AUTO) 0.5 % (0-1); EOSINOPHILS # (AUTO) 0.7 X10'3 (0-0.9); EOSINOPHILS % (AUTO) 9.9 % (0-6); HEMATOCRIT 35.4 % (35.0-45.0); HEMOGLOBIN 11.8 g/dl (12.0-16.0); LYMPHOCYTES # (AUTO) 2.6 X10'3 (1.1-4.8); LYMPHOCYTES % (AUTO) 36.2 % (21-51); MEAN CORPUSCULAR HEMOGLOBIN 29.9 PG (27.0-31.0); MEAN CORPUSCULAR HGB CONC 33.4 g/dL (33.0-36.5); MEAN CORPUSCULAR VOLUME 89.4 FL (78-98); MEAN PLATELET VOLUME 6.8 FL (7.4-10.4); MONOCYTES # (AUTO) 0.4 X10'3 (0-0.9); MONOCYTES % (AUTO) 5.2 % (2-12); NEUTROPHILS # (AUTO) 3.5 X10'3 (1.8-7.7); NEUTROPHILS % (AUTO) 48.2 % (42-75); PLATELET COUNT 247 X10'3 (140-440); RED BLOOD COUNT 3.96 X10'6 (4.20-5.60); RED CELL DISTRIBUTION WIDTH 14.3 % (11.5-14.5); WHITE BLOOD COUNT 7.2 X10'3 (4.5-11.0)
[2020-03-01 08:04] VITALS: BP 167/98
[2020-03-01 08:23] LABS: ALANINE AMINOTRANSFERASE 29 U/L (12-78); ALBUMIN 3.3 G/DL (3.4-5.0); ALKALINE PHOSPHATASE 109 IU/L (46-116); ANION GAP 9 (8-16); ASPARTATE AMINO TRANSFERASE 24 U/L (10-37); BILIRUBIN,TOTAL 0.2 MG/DL (0.1-1.0); BLOOD UREA NITROGEN 22 MG/DL (7-18); BUN/CREATININE RATIO 25.9 (6.6-38.0); CALCIUM 8.2 MG/DL (8.5-10.1); CHLORIDE 106 MMOL/L (99-107); CREATININE 0.85 MG/DL (0.40-0.90); GLUCOSE 107 MG/DL (70-104); SODIUM 141 MMOL/L (135-145); TOTAL CARBON DIOXIDE 25.6 MMOL/L (24-32); TOTAL PROTEIN 6.7 G/DL (6.4-8.2); eGFR > 90 ML/MIN
[2020-03-01] MEDS ORDERED: acetaminophen 325mg tablet PO ONE (08:50)
[2020-03-01] MEDS ORDERED: ACET-1131 PO (08:51)
== END 2020-03-01 08:59 | disposition home or self-care (01) ==
LOC: ER 06:34
DX: R51 Headache (principal); K08.89 Other specified disorders of teeth and supporting structures; R22.0 Localized swelling, mass and lump, head; J45.909 Unspecified asthma, uncomplicated; E11.42 Type 2 diabetes mellitus with diabetic polyneuropathy; G89.29 Other chronic pain; F41.9 Anxiety disorder, unspecified; F32.9 Major depressive disorder, single episode, unspecified; F20.9 Schizophrenia, unspecified; Z90.49 Acquired absence of other specified parts of digestive tract; Z98.890 Other specified postprocedural states; Z56.0 Unemployment, unspecified; Z79.899 Other long term (current) drug therapy
CPT/HCPCS: 36415; 71045; 80053; 84484; 85025; 93005; 96372; 99285; J1885

== ENCOUNTER 2020-03-12 17:10 | Emergency (ER) | payer MEDICAID ==
[~2020-03-12] VITALS: Ht 167.6 cm; Wt 89.1 kg
[2020-03-12 17:24] VITALS: BP 131/76
[2020-03-12] MEDS ORDERED: ketorolac tromethamine 15mg/ml inj. IM ONE (18:45)
[2020-03-12] MEDS ORDERED: IBUP-1984 PO (18:49)
== END 2020-03-12 19:09 | disposition home or self-care (01) ==
LOC: ER 17:11
DX: M25.511 Pain in right shoulder (principal); G43.909 Migraine, unspecified, not intractable, without status migrainosus; J45.909 Unspecified asthma, uncomplicated; E11.42 Type 2 diabetes mellitus with diabetic polyneuropathy; I10 Essential (primary) hypertension; G89.29 Other chronic pain; E05.90 Thyrotoxicosis, unspecified without thyrotoxic crisis or storm; F41.9 Anxiety disorder, unspecified; F32.9 Major depressive disorder, single episode, unspecified; F20.9 Schizophrenia, unspecified; Z90.49 Acquired absence of other specified parts of digestive tract; Z56.0 Unemployment, unspecified; Z79.899 Other long term (current) drug therapy
CPT/HCPCS: 73030; 96372; 99283; J1885

== ENCOUNTER 2020-03-18 21:32 | Emergency (ER) | payer MEDICAID ==
[~2020-03-18] VITALS: Ht 167.6 cm; Wt 89.0 kg
[~2020-03-18 21:32] MED LIST changes: +IBUP-1984 PO
[2020-03-18] MEDS ORDERED: mag hydrox/Alum hydrox/simeth 30ml oral suspension PO ONE (22:55)
[2020-03-18] MEDS ORDERED: ketorolac tromethamine 15mg/ml inj. IM ONE (22:55)
[2020-03-18] MEDS ORDERED: LIDOcaine Viscous 15ml cup MM PRN (22:55)
[2020-03-18 23:13] LABS: CLARITY,URINE CLEAR (Clear); COLOR,URINE YELLOW (Yellow); GLUCOSE, URINE NEGATIVE (Neg); KETONES,URINE NEGATIVE (Neg); LEUKOCYTE ESTERASE ,URINE NEGATIVE (Neg); NITRITES, URINE NEGATIVE (Neg); OCCULT BLOOD,URINE NEGATIVE (Neg); PROTEIN,URINE NEGATIVE (Neg); URINE HCG NEGATIVE (NEG); UROBILINOGEN,URINE 0.2 E.U/dL (0.2-1.0)
[2020-03-18 23:16] LABS: UA COLLECTION TYPE VOIDED
[2020-03-18 23:43] VITALS: BP 112/73
[2020-03-19] MEDS ORDERED: NAPR-56 PO (15:15)
[2020-03-19] MEDS ORDERED: CYCL-1 PO (15:15)
== END 2020-03-18 23:42 | disposition home or self-care (01) ==
LOC: ER 21:33
DX: R10.30 Lower abdominal pain, unspecified (principal); K42.9 Umbilical hernia without obstruction or gangrene; G43.909 Migraine, unspecified, not intractable, without status migrainosus; E11.42 Type 2 diabetes mellitus with diabetic polyneuropathy; J45.909 Unspecified asthma, uncomplicated; E05.90 Thyrotoxicosis, unspecified without thyrotoxic crisis or storm; G89.29 Other chronic pain; F41.9 Anxiety disorder, unspecified; F32.9 Major depressive disorder, single episode, unspecified; F20.9 Schizophrenia, unspecified; Z87.440 Personal history of urinary (tract) infections; Z90.89 Acquired absence of other organs; Z98.890 Other specified postprocedural states; Z56.0 Unemployment, unspecified; Z79.899 Other long term (current) drug therapy
CPT/HCPCS: 81003; 81025; 96372; 99283; J1885

== ENCOUNTER 2020-03-25 09:10 | Day surgery (SDC) | payer MEDICAID ==
[2020-03-22 10:32] LABS: BASOPHILS # (AUTO) 0.1 X10'3 (0-0.2); BASOPHILS % (AUTO) 1.1 % (0-1); EOSINOPHILS # (AUTO) 0.3 X10'3 (0-0.9); EOSINOPHILS % (AUTO) 5.4 % (0-6); LYMPHOCYTES # (AUTO) 2.2 X10'3 (1.1-4.8); LYMPHOCYTES % (AUTO) 36.4 % (21-51); MEAN CORPUSCULAR HEMOGLOBIN 29.2 PG (27.0-31.0); MEAN CORPUSCULAR HGB CONC 32.9 g/dL (33.0-36.5); MEAN CORPUSCULAR VOLUME 88.7 FL (78-98); MEAN PLATELET VOLUME 6.7 FL (7.4-10.4); MONOCYTES # (AUTO) 0.3 X10'3 (0-0.9); MONOCYTES % (AUTO) 4.7 % (2-12); NEUTROPHILS # (AUTO) 3.2 X10'3 (1.8-7.7); NEUTROPHILS % (AUTO) 52.4 % (42-75); PRE OP HEMATOCRIT 43.3 % (35.0-45.0); PRE OP HEMOGLOBIN 14.2 g/dL (12.0-16.0); PRE OP PLATELET COUNT 215 X10'3 (140-440); RED BLOOD COUNT 4.88 X10'6 (4.20-5.60); RED CELL DISTRIBUTION WIDTH 14.2 % (11.5-14.5)
[2020-03-22 10:54] LABS: ALBUMIN 4.1 G/DL (3.4-5.0); ALBUMIN/GLOBULIN RATIO 1.1 (1.1-1.5); ALKALINE PHOSPHATASE 116 IU/L (46-116); BLOOD UREA NITROGEN 16 MG/DL (7-18); BUN/CREATININE RATIO 18.8 (6.6-38.0); CALCIUM 8.9 MG/DL (8.5-10.1); CHLORIDE 103 MMOL/L (99-107); CREATININE 0.85 MG/DL (0.40-0.90); PRE OP ALT 37 U/L (30-65); PRE OP ANION GAP 13 (8-16); PRE OP AST 29 U/L (10-37); PRE OP BILIRUB, TOTAL 0.2 MG/DL (0.0-1.0); PRE OP GLUCOSE 86 MG/DL (70-104); PRE OP POTASSIUM 4.7 MMOL/L (3.4-5.1); PRE OP SODIUM 138 MMOL/L (135-145); TOTAL CARBON DIOXIDE 21.6 MMOL/L (24-32); eGFR > 90 ML/MIN
[2020-03-22 11:06] LABS: HCG SERUM QL NEGATIVE
[2020-03-25] VITALS (8 sets, daily range): BP systolic 111–159; BP diastolic 59–90
[~2020-03-25] VITALS: Ht 167.6 cm; Wt 91.2 kg
[~2020-03-25 09:10] MED LIST changes: +CYCL-1 PO; -IBUP-1984 PO; +NAPR-56 PO; -RISP1TAB3 PO; +ceFAZolin 2gm in dextrose, iso 50 ML IV ONE; +famotidine 20mg tablet PO ONE; +ringers solution, lacted 1,000 ML IV SCH
[2020-03-25] MEDS ORDERED: LIDOcaine 1% (10mg/ml) 2ml vial ONE (09:56)
[2020-03-25] MEDS ORDERED: BUPIVAcaine/PF 2.5mg/ml (0.25%) 10ml vial ONE (10:23)
[2020-03-25] MEDS ORDERED: LIDOcaine 1% 30ml preserv. free vial ONE (10:23)
[2020-03-25] MEDS ORDERED: BUPIVAcaine/PF 2.5 mg/ml (0.25%) 30ml vial ONE (10:23)
[2020-03-25] MEDS ORDERED: BUPIVACAINE liposomal/PF 13.3 MG/ML vial IM ONE (10:23)
[2020-03-25] MEDS ORDERED: acetaminophen 1,000mg/100ml IV 100 ML IV PRN (10:45)
[2020-03-25] MEDS ORDERED: ondansetron/PF 4mg/2ml inj IV PRN (10:45)
[2020-03-25] MEDS ORDERED: proCHLORperazine 10 MG/2 ml inj IV PRN (10:45)
[2020-03-25] MEDS ORDERED: HYDROmorphone inj. 0.5 MG/0.5 ML DISP.SYRIN IV PRN (10:45)
[2020-03-25] MEDS ORDERED: morphine 2 MG/ML inj. syringe IV PRN (10:45)
[2020-03-25] MEDS ORDERED: morphine 4 MG/ML inj SYRINge IV PRN (10:45)
[2020-03-25] MEDS ORDERED: ringers solution, lacted 1,000 ML IV SCH (10:45)
[2020-03-25] MEDS ORDERED: ondansetron/PF 4mg/2ml inj ONE (10:47)
[2020-03-25] MEDS ORDERED: sevoflurane 250ml liquid IH ONE (10:47)
[2020-03-25] MEDS ORDERED: glycopyrrolate 0.2mg/ml inj ONE (10:47)
[2020-03-25] MEDS ORDERED: neostigmine methylsulfate 1 MG/ML 10ml vial ONE (10:47)
[2020-03-25] MEDS ORDERED: midazolam 2 mg/2 ml injection ONE (10:53)
[2020-03-25] MEDS ORDERED: fentaNYL /PF 50mcg/ml 5ml ampule ONE (10:54)
[2020-03-25] MEDS ORDERED: LIDOcaine 2% (20mg/ml) 5ml vial ONE (11:13)
[2020-03-25] MEDS ORDERED: rocuronium 10mg/ml inj IV ONE (11:13)
[2020-03-25] MEDS ORDERED: dexamethasone sod phosphate 4mg/ml inj. ONE (11:13)
[2020-03-25] MEDS ORDERED: propofol inj 20 ML IV ONE (11:13)
[2020-03-25] MEDS ORDERED: LIDOcaine 4% LTA kit 4ml solution TP ONE (11:14)
[2020-03-25] MEDS ORDERED: 0.9 % SODIUM CHLORIDE 10 ML VIAL ONE (11:36)
[2020-03-25] MEDS ORDERED: ePHEDrine 50MG/ML INJ. ONE (11:36)
--- NOTE | 2020-03-25 12:19 | NUR ---
Received from OR via , accompanied by Anesthesiologist DR PAULINO and report given by Anesthesiolgist. AWAKENS TO VOICE. VITALS STABLE. DRESSINGS DI. C/O ABD PAIN. WILL MEDICATE. ABD SOFT.
[2020-03-25] MEDS ORDERED: oxyCODONE/APAP 5-325mg tablet PO PRN (12:40)
[2020-03-25] MEDS: HYDROmorphone inj. 0.5 MG/0.5 ML DISP.SYRIN IV PRN ×2 (12:41→13:02)
--- NOTE | 2020-03-25 13:29 | NUR ---
AWAKE AND ORIENTED. VITALS STABLE. DRESSINGS DI. STATES PAIN IMPROVING. HOME WITH HER SPOUSE AT THIS TIME.
== END 2020-03-25 13:29 | disposition home or self-care (01) ==
LOC: PAS 09:10
PROVIDERS: ATTEND Surgery
DX: K42.9 Umbilical hernia without obstruction or gangrene (principal); E03.9 Hypothyroidism, unspecified; J44.9 Chronic obstructive pulmonary disease, unspecified; G43.909 Migraine, unspecified, not intractable, without status migrainosus; E05.00 Thyrotoxicosis with diffuse goiter without thyrotoxic crisis or storm; F20.9 Schizophrenia, unspecified; E11.40 Type 2 diabetes mellitus with diabetic neuropathy, unspecified; F32.9 Major depressive disorder, single episode, unspecified; F41.9 Anxiety disorder, unspecified; F17.210 Nicotine dependence, cigarettes, uncomplicated; Z11.59 Encounter for screening for other viral diseases; Z98.890 Other specified postprocedural states; Z79.899 Other long term (current) drug therapy; Z88.8 Allergy status to other drugs, medicaments and biological substances; Z88.5 Allergy status to narcotic agent; Z83.3 Family history of diabetes mellitus; Z82.61 Family history of arthritis
CPT/HCPCS: 36415; 49652; 64488; 80053; 82948; 84703; 85025; C1781; C9290; J0131; J1100; J1170; J2001; J2250; J2270; J2704; J3010; J3490; S2900; U0003; A4215; A4618; J2405; J2710; J7120

== ENCOUNTER 2020-03-26 19:15 | Emergency (ER) | payer MEDICAID ==
[~2020-03-26] VITALS: Ht 167.6 cm; Wt 90.0 kg
[~2020-03-26 19:15] MED LIST changes: -ceFAZolin 2gm in dextrose, iso 50 ML IV ONE; -famotidine 20mg tablet PO ONE; -ringers solution, lacted 1,000 ML IV SCH
[2020-03-26 19:21] VITALS: BP 112/61
[2020-03-26] MEDS ORDERED: HYDROcodone/acetaminophen 5mg/325mg tablet PO ONE (20:00)
[2020-03-26] MEDS ORDERED: ketorolac tromethamine 15mg/ml inj. IM ONE (20:00)
[2020-03-26 21:07] LABS: ALANINE AMINOTRANSFERASE 19 U/L (12-78); ALBUMIN 3.6 G/DL (3.4-5.0); ALBUMIN/GLOBULIN RATIO 1.1 (1.1-1.5); ALKALINE PHOSPHATASE 123 IU/L (46-116); ANION GAP 6 (8-16); ASPARTATE AMINO TRANSFERASE 20 U/L (10-37); BILIRUBIN,TOTAL 0.2 MG/DL (0.1-1.0); BLOOD UREA NITROGEN 13 MG/DL (7-18); BUN/CREATININE RATIO 11.1 (6.6-38.0); CALCIUM 7.9 MG/DL (8.5-10.1); CHLORIDE 106 MMOL/L (99-107); CREATININE 1.17 MG/DL (0.40-0.90); GLUCOSE 101 MG/DL (70-104); POTASSIUM 3.6 MMOL/L (3.5-5.1); SODIUM 139 MMOL/L (135-145); eGFR 66 ML/MIN
[2020-03-26 21:08] LABS: BASOPHILS % (AUTO) 0.4 % (0-1); EOSINOPHILS # (AUTO) 0.1 X10'3 (0-0.9); EOSINOPHILS % (AUTO) 1.2 % (0-6); HEMOGLOBIN 11.8 g/dl (12.0-16.0); LYMPHOCYTES % (AUTO) 35.9 % (21-51); MEAN CORPUSCULAR HEMOGLOBIN 28.8 PG (27.0-31.0); MEAN CORPUSCULAR HGB CONC 32.7 g/dL (33.0-36.5); MEAN CORPUSCULAR VOLUME 88.1 FL (78-98); MEAN PLATELET VOLUME 7.1 FL (7.4-10.4); MONOCYTES # (AUTO) 0.5 X10'3 (0-0.9); NEUTROPHILS # (AUTO) 6.6 X10'3 (1.8-7.7); NEUTROPHILS % (AUTO) 58.5 % (42-75); PLATELET COUNT 243 X10'3 (140-440); RED BLOOD COUNT 4.08 X10'6 (4.20-5.60); RED CELL DISTRIBUTION WIDTH 14.7 % (11.5-14.5); WHITE BLOOD COUNT 11.2 X10'3 (4.5-11.0)
== END 2020-03-26 20:55 | disposition home or self-care (01) ==
LOC: ER 19:16
DX: G89.18 Other acute postprocedural pain (principal); R10.9 Unspecified abdominal pain; R19.09 Other intra-abdominal and pelvic swelling, mass and lump; G43.909 Migraine, unspecified, not intractable, without status migrainosus; E11.42 Type 2 diabetes mellitus with diabetic polyneuropathy; J45.909 Unspecified asthma, uncomplicated; E05.90 Thyrotoxicosis, unspecified without thyrotoxic crisis or storm; G89.29 Other chronic pain; F41.9 Anxiety disorder, unspecified; F32.9 Major depressive disorder, single episode, unspecified; F20.9 Schizophrenia, unspecified; Z87.440 Personal history of urinary (tract) infections; Z90.89 Acquired absence of other organs; Z98.890 Other specified postprocedural states; Z56.0 Unemployment, unspecified; Z79.899 Other long term (current) drug therapy
CPT/HCPCS: 36415; 80053; 85025; 96372; 99283; J1885

== ENCOUNTER 2020-04-05 21:50 | Emergency (ER) | payer MEDICAID ==
[~2020-04-05] VITALS: Ht 167.6 cm; Wt 98.2 kg
[2020-04-05] MEDS ORDERED: BACI1PAC7 TP (22:25)
[2020-04-05] MEDS ORDERED: ketorolac trometh inj. 60 MG/2 ML VIAL IM ONE (22:25)
[2020-04-05 22:44] VITALS: BP 108/66
== END 2020-04-05 22:45 | disposition home or self-care (01) ==
LOC: ER 21:50
DX: N94.89 Other specified conditions associated with female genital organs and menstrual cycle (principal); R19.7 Diarrhea, unspecified; G43.909 Migraine, unspecified, not intractable, without status migrainosus; J45.909 Unspecified asthma, uncomplicated; G89.29 Other chronic pain; F41.9 Anxiety disorder, unspecified; F32.9 Major depressive disorder, single episode, unspecified; F20.9 Schizophrenia, unspecified; E11.42 Type 2 diabetes mellitus with diabetic polyneuropathy; E05.90 Thyrotoxicosis, unspecified without thyrotoxic crisis or storm; Z90.49 Acquired absence of other specified parts of digestive tract; Z90.89 Acquired absence of other organs; Z98.890 Other specified postprocedural states; Z79.899 Other long term (current) drug therapy
CPT/HCPCS: 96372; 99283; J1885

== ENCOUNTER 2020-04-10 18:50 | Emergency (ER) | payer MEDICAID ==
[~2020-04-10] VITALS: Ht 167.6 cm; Wt 91.8 kg
[~2020-04-10 18:50] MED LIST changes: +BACI1PAC7 TP
[2020-04-10] MEDS ORDERED: diphenhydrAMINE 2%/zinc acetate cream TP STA (20:06)
[2020-04-10] MEDS ORDERED: diphenhydrAMINE 25mg capsule PO ONE (20:10)
[2020-04-10 20:26] VITALS: BP 141/89
== END 2020-04-10 20:27 | disposition home or self-care (01) ==
LOC: ER 18:53
DX: T78.40XA Allergy, unspecified, initial encounter (principal); L29.8 Other pruritus; G43.909 Migraine, unspecified, not intractable, without status migrainosus; J45.909 Unspecified asthma, uncomplicated; E11.42 Type 2 diabetes mellitus with diabetic polyneuropathy; E05.90 Thyrotoxicosis, unspecified without thyrotoxic crisis or storm; G89.29 Other chronic pain; F41.9 Anxiety disorder, unspecified; F32.9 Major depressive disorder, single episode, unspecified; F20.9 Schizophrenia, unspecified; Z87.440 Personal history of urinary (tract) infections; Z90.89 Acquired absence of other organs; Z98.890 Other specified postprocedural states; Z56.0 Unemployment, unspecified; Z79.2 Long term (current) use of antibiotics; Z79.899 Other long term (current) drug therapy; Y92.9 Unspecified place or not applicable
CPT/HCPCS: 99283; Q0163

== ENCOUNTER 2020-04-29 18:54 | Emergency (ER) | payer MEDICAID ==
[~2020-04-29] VITALS: Ht 167.6 cm; Wt 92.7 kg
[2020-04-29 19:56] LABS: BASOPHILS # (AUTO) 0.1 X10'3 (0-0.2); BASOPHILS % (AUTO) 0.7 % (0-1); EOSINOPHILS # (AUTO) 0.6 X10'3 (0-0.9); EOSINOPHILS % (AUTO) 6.6 % (0-6); LYMPHOCYTES # (AUTO) 2.7 X10'3 (1.1-4.8); MEAN CORPUSCULAR HEMOGLOBIN 29.4 PG (27.0-31.0); MEAN CORPUSCULAR HGB CONC 33.5 g/dL (33.0-36.5); MEAN CORPUSCULAR VOLUME 87.8 FL (78-98); MONOCYTES # (AUTO) 0.4 X10'3 (0-0.9); MONOCYTES % (AUTO) 4.3 % (2-12); NEUTROPHILS # (AUTO) 4.8 X10'3 (1.8-7.7); NEUTROPHILS % (AUTO) 56.4 % (42-75); PLATELET COUNT 272 X10'3 (140-440); RED CELL DISTRIBUTION WIDTH 15.1 % (11.5-14.5); WHITE BLOOD COUNT 8.5 X10'3 (4.5-11.0)
[2020-04-29 20:09] LABS: ALANINE AMINOTRANSFERASE 21 U/L (12-78); ALBUMIN 3.5 G/DL (3.4-5.0); ALBUMIN/GLOBULIN RATIO 0.9 (1.1-1.5); ALKALINE PHOSPHATASE 109 IU/L (46-116); ANION GAP 9 (8-16); ASPARTATE AMINO TRANSFERASE 16 U/L (10-37); BILIRUBIN,TOTAL 0.1 MG/DL (0.1-1.0); BLOOD UREA NITROGEN 11 MG/DL (7-18); BUN/CREATININE RATIO 15.3 (6.6-38.0); CALCIUM 8.2 MG/DL (8.5-10.1); CHLORIDE 106 MMOL/L (99-107); CREATININE 0.72 MG/DL (0.40-0.90); GLUCOSE 93 MG/DL (70-104); LIPASE 108 U/L (73-393); POTASSIUM 3.8 MMOL/L (3.5-5.1); SODIUM 140 MMOL/L (135-145); TOTAL CARBON DIOXIDE 24.6 MMOL/L (24-32); TOTAL PROTEIN 7.5 G/DL (6.4-8.2); eGFR > 90 ML/MIN
[2020-04-29 20:13] LABS: URINE HCG NEGATIVE (NEG)
[2020-04-29 20:16] LABS: CLARITY,URINE CLEAR (Clear); COLOR,URINE YELLOW (Yellow); GLUCOSE, URINE NEGATIVE (Neg); KETONES,URINE NEGATIVE (Neg); LEUKOCYTE ESTERASE ,URINE NEGATIVE (Neg); NITRITES, URINE NEGATIVE (Neg); OCCULT BLOOD,URINE NEGATIVE (Neg); PROTEIN,URINE NEGATIVE (Neg); UROBILINOGEN,URINE 0.2 E.U/dL (0.2-1.0)
[2020-04-29 20:24] LABS: UA COLLECTION TYPE CLN CATCH MIDSTREAM
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
[2020-04-29] MEDS ORDERED: proCHLORperazine 10 MG/2 ml inj IV ONE (20:45)
[2020-04-29] MEDS ORDERED: ketorolac trometh inj. 60 MG/2 ML VIAL IM ONE (20:45)
[2020-04-29] MEDS ORDERED: diphenhydrAMINE 25mg capsule PO ONE (20:45)
[2020-04-29] MEDS ORDERED: TRAM100C3 PO (21:47)
[2020-04-29 21:51] VITALS: BP 110/62
== END 2020-04-29 21:53 | disposition home or self-care (01) ==
LOC: ER 18:55
DX: G43.909 Migraine, unspecified, not intractable, without status migrainosus (principal); R11.0 Nausea; E11.42 Type 2 diabetes mellitus with diabetic polyneuropathy; J45.909 Unspecified asthma, uncomplicated; G89.29 Other chronic pain; F41.9 Anxiety disorder, unspecified; F32.9 Major depressive disorder, single episode, unspecified; F20.9 Schizophrenia, unspecified; E05.90 Thyrotoxicosis, unspecified without thyrotoxic crisis or storm; Z87.440 Personal history of urinary (tract) infections; Z90.89 Acquired absence of other organs; Z98.890 Other specified postprocedural states; Z56.0 Unemployment, unspecified; Z79.2 Long term (current) use of antibiotics; Z79.899 Other long term (current) drug therapy
CPT/HCPCS: 36415; 80053; 81003; 81025; 83690; 85025; 96372; 96374; 99284; J0780; J1885; Q0163

== ENCOUNTER 2020-04-30 11:03 | Emergency (ER) | payer MEDICAID ==
[~2020-04-30] VITALS: Ht 167.6 cm; Wt 92.7 kg
[~2020-04-30 11:03] MED LIST changes: +TRAM100C3 PO
[2020-04-30 11:22] VITALS: BP 113/71
[2020-04-30] MEDS ORDERED: acetaminophen 325mg tablet PO ONE (11:30)
[2020-04-30] MEDS ORDERED: ketorolac tromethamine 15mg/ml inj. IM ONE (11:30)
== END 2020-04-30 12:33 | disposition home or self-care (01) ==
LOC: ER 11:04
DX: S63.501A Unspecified sprain of right wrist, initial encounter (principal); S60.041A Contusion of right ring finger without damage to nail, initial encounter; S60.031A Contusion of right middle finger without damage to nail, initial encounter; M25.531 Pain in right wrist; M79.641 Pain in right hand; G43.909 Migraine, unspecified, not intractable, without status migrainosus; E11.42 Type 2 diabetes mellitus with diabetic polyneuropathy; J45.909 Unspecified asthma, uncomplicated; E05.90 Thyrotoxicosis, unspecified without thyrotoxic crisis or storm; G89.29 Other chronic pain; F41.9 Anxiety disorder, unspecified; F32.9 Major depressive disorder, single episode, unspecified; F20.9 Schizophrenia, unspecified; Z87.440 Personal history of urinary (tract) infections; Z90.89 Acquired absence of other organs; Z98.890 Other specified postprocedural states; Z56.0 Unemployment, unspecified; Z79.2 Long term (current) use of antibiotics; Z79.899 Other long term (current) drug therapy; W01.0XXA Fall on same level from slipping, tripping and stumbling without subsequent striking against object, initial encounter; Y93.01 Activity, walking, marching and hiking; Y92.89 Other specified places as the place of occurrence of the external cause; Y99.8 Other external cause status
CPT/HCPCS: 29125; 73110; 73130; 96372; 99284; J1885

== ENCOUNTER 2020-05-01 12:25 | Emergency (ER) | payer MEDICAID ==
[~2020-05-01] VITALS: Ht 167.6 cm; Wt 93.6 kg
[2020-05-01 12:35] VITALS: BP 116/68
--- NOTE | 2020-05-01 12:41 | NUR ---
PT OFFERED ICE PACK FOR HAND, PT REFUSED.
[2020-05-01] MEDS ORDERED: ondansetron 4mg rapidly disintigrating tab PO ONE (13:25)
[2020-05-01] MEDS: HYDROcodone/acetaminophen 5mg/325mg tablet PO ONE ×2 (13:44→13:52)
[2020-05-01] MEDS ORDERED: ketorolac tromethamine 15mg/ml inj. IM ONE (13:50)
== END 2020-05-01 14:04 | disposition home or self-care (01) ==
LOC: ER 12:26
DX: M25.531 Pain in right wrist (principal); G43.909 Migraine, unspecified, not intractable, without status migrainosus; E11.42 Type 2 diabetes mellitus with diabetic polyneuropathy; J45.909 Unspecified asthma, uncomplicated; G89.29 Other chronic pain; E05.90 Thyrotoxicosis, unspecified without thyrotoxic crisis or storm; F41.9 Anxiety disorder, unspecified; F32.9 Major depressive disorder, single episode, unspecified; F20.9 Schizophrenia, unspecified; Z87.440 Personal history of urinary (tract) infections; Z90.89 Acquired absence of other organs; Z98.890 Other specified postprocedural states; Z56.0 Unemployment, unspecified; Z79.899 Other long term (current) drug therapy; Z79.2 Long term (current) use of antibiotics
CPT/HCPCS: 29125; 96372; 99283; J1885

== ENCOUNTER 2020-05-22 13:09 | Emergency (ER) | payer MEDICAID ==
[~2020-05-22] VITALS: Ht 167.6 cm; Wt 90.9 kg
[~2020-05-22 13:09] MED LIST changes: -BACI1PAC7 TP
[2020-05-22] MEDS ORDERED: aspirin 81mg tab.chew PO ONE (13:35)
[2020-05-22 14:24] LABS: BASOPHILS # (AUTO) 0.1 X10'3 (0-0.2); BASOPHILS % (AUTO) 1.1 % (0-1); EOSINOPHILS # (AUTO) 0.4 X10'3 (0-0.9); EOSINOPHILS % (AUTO) 4.6 % (0-6); HEMATOCRIT 37.2 % (35.0-45.0); HEMOGLOBIN 12.3 g/dl (12.0-16.0); LYMPHOCYTES # (AUTO) 3.1 X10'3 (1.1-4.8); LYMPHOCYTES % (AUTO) 34.7 % (21-51); MEAN CORPUSCULAR HEMOGLOBIN 29.1 PG (27.0-31.0); MEAN CORPUSCULAR VOLUME 88.2 FL (78-98); MEAN PLATELET VOLUME 6.9 FL (7.4-10.4); MONOCYTES # (AUTO) 0.4 X10'3 (0-0.9); MONOCYTES % (AUTO) 4.7 % (2-12); NEUTROPHILS # (AUTO) 4.9 X10'3 (1.8-7.7); NEUTROPHILS % (AUTO) 54.9 % (42-75); PLATELET COUNT 283 X10'3 (140-440); RED BLOOD COUNT 4.22 X10'6 (4.20-5.60); RED CELL DISTRIBUTION WIDTH 15.4 % (11.5-14.5)
[2020-05-22 14:35] LABS: PARTIAL THROMBOPLASTIN TIME 31 SECONDS (22-32)
[2020-05-22 14:38] LABS: ALANINE AMINOTRANSFERASE 16 U/L (12-78); ALBUMIN 3.7 G/DL (3.4-5.0); ALBUMIN/GLOBULIN RATIO 0.9 (1.1-1.5); ALKALINE PHOSPHATASE 115 IU/L (46-116); ANION GAP 8 (8-16); ASPARTATE AMINO TRANSFERASE 28 U/L (10-37); BILIRUBIN,TOTAL 0.2 MG/DL (0.1-1.0); BLOOD UREA NITROGEN 11 MG/DL (7-18); BUN/CREATININE RATIO 13.3 (6.6-38.0); CALCIUM 8.5 MG/DL (8.5-10.1); CHLORIDE 103 MMOL/L (99-107); CREATININE 0.83 MG/DL (0.40-0.90); GLUCOSE 93 MG/DL (70-104); POTASSIUM 4.1 MMOL/L (3.5-5.1); SODIUM 139 MMOL/L (135-145); TOTAL CARBON DIOXIDE 28.5 MMOL/L (24-32); TOTAL PROTEIN 7.8 G/DL (6.4-8.2); eGFR > 90 ML/MIN
[2020-05-22 15:01] LABS: BETA HCG,QUANTITATIVE < 1.0 mIU/ml
[2020-05-22] MEDS ORDERED: ketorolac trometh. 30mg/ml inj. IM ONE (15:10)
[2020-05-22] MEDS ORDERED: AZIT500T9 PO (15:13)
[2020-05-22] MEDS ORDERED: PANT-47 PO (15:14)
[2020-05-22 15:28] VITALS: BP 118/69
== END 2020-05-22 15:30 | disposition home or self-care (01) ==
LOC: ER 13:09
DX: R07.89 Other chest pain (principal); G43.909 Migraine, unspecified, not intractable, without status migrainosus; E11.42 Type 2 diabetes mellitus with diabetic polyneuropathy; J45.909 Unspecified asthma, uncomplicated; E05.90 Thyrotoxicosis, unspecified without thyrotoxic crisis or storm; G89.29 Other chronic pain; F41.9 Anxiety disorder, unspecified; F32.9 Major depressive disorder, single episode, unspecified; F20.9 Schizophrenia, unspecified; Z87.440 Personal history of urinary (tract) infections; Z90.89 Acquired absence of other organs; Z98.890 Other specified postprocedural states; Z56.0 Unemployment, unspecified; Z79.2 Long term (current) use of antibiotics; Z79.899 Other long term (current) drug therapy
CPT/HCPCS: 36415; 71045; 80053; 83735; 83880; 84484; 84702; 85025; 85610; 85730; 93005; 96372; 99285; J1885

== ENCOUNTER 2020-06-06 09:54 | Emergency (ER) | payer MEDICAID ==
[~2020-06-06] VITALS: Ht 167.6 cm; Wt 97.0 kg
[~2020-06-06 09:54] MED LIST changes: +AZIT500T9 PO; +PANT-47 PO
[2020-06-06 10:07] VITALS: BP 129/99
[2020-06-06] MEDS ORDERED: ketorolac tromethamine 15mg/ml inj. IM ONE (10:35)
== END 2020-06-06 11:04 | disposition home or self-care (01) ==
LOC: ER 09:54
DX: J06.9 Acute upper respiratory infection, unspecified (principal); J45.909 Unspecified asthma, uncomplicated; E11.42 Type 2 diabetes mellitus with diabetic polyneuropathy; G89.29 Other chronic pain; F41.9 Anxiety disorder, unspecified; F32.9 Major depressive disorder, single episode, unspecified; F20.9 Schizophrenia, unspecified; F17.200 Nicotine dependence, unspecified, uncomplicated; Z90.49 Acquired absence of other specified parts of digestive tract; Z98.890 Other specified postprocedural states; Z56.0 Unemployment, unspecified; Z79.2 Long term (current) use of antibiotics; Z79.899 Other long term (current) drug therapy
CPT/HCPCS: 96372; 99283; J1885

== ENCOUNTER 2020-06-11 21:44 | Emergency (ER) | payer MEDICAID ==
[~2020-06-11] VITALS: Ht 167.6 cm; Wt 98.2 kg
[2020-06-11] MEDS ORDERED: ERYT1OIN6 LEFTEYE (22:28)
[2020-06-11] MEDS ORDERED: ketorolac tromethamine 15mg/ml inj. IM ONE (22:30)
[2020-06-11 23:00] VITALS: BP 111/77
== END 2020-06-11 23:01 | disposition home or self-care (01) ==
LOC: ER 21:45
DX: R51 Headache (principal); H10.32 Unspecified acute conjunctivitis, left eye; G43.909 Migraine, unspecified, not intractable, without status migrainosus; E11.42 Type 2 diabetes mellitus with diabetic polyneuropathy; J45.909 Unspecified asthma, uncomplicated; E05.90 Thyrotoxicosis, unspecified without thyrotoxic crisis or storm; G89.29 Other chronic pain; F41.9 Anxiety disorder, unspecified; F32.9 Major depressive disorder, single episode, unspecified; F20.9 Schizophrenia, unspecified; Z87.01 Personal history of pneumonia (recurrent); Z90.89 Acquired absence of other organs; Z98.890 Other specified postprocedural states; Z56.0 Unemployment, unspecified; Z79.2 Long term (current) use of antibiotics; Z79.899 Other long term (current) drug therapy
CPT/HCPCS: 96372; 99283; J1885

== ENCOUNTER 2020-06-12 10:39 | Emergency (ER) | payer MEDICAID ==
[~2020-06-12] VITALS: Ht 167.6 cm; Wt 98.2 kg
[~2020-06-12 10:39] MED LIST changes: +ERYT1OIN6 LEFTEYE
[2020-06-12 10:55] VITALS: BP 107/60
--- NOTE | 2020-06-12 12:14 | NUR ---
PT NIL AT 1157, NIL AGAIN AT 1211
== END 2020-06-12 12:38 | disposition left against medical advice (07) ==
LOC: ER 10:40
DX: R51 Headache (principal); Z53.21 Procedure and treatment not carried out due to patient leaving prior to being seen by health care provider

== ENCOUNTER 2020-06-13 09:35 | Emergency (ER) | payer MEDICAID ==
[~2020-06-13] VITALS: Ht 167.6 cm; Wt 98.2 kg
[2020-06-13 09:57] VITALS: BP 118/71
[2020-06-13] MEDS ORDERED: traMADol 50MG tablet PO ONE (10:20)
[2020-06-13] MEDS ORDERED: ketorolac trometh. 30mg/ml inj. IM ONE (10:20)
== END 2020-06-13 10:57 | disposition home or self-care (01) ==
LOC: ER 09:35
DX: J06.9 Acute upper respiratory infection, unspecified (principal); E11.42 Type 2 diabetes mellitus with diabetic polyneuropathy; J45.909 Unspecified asthma, uncomplicated; G89.29 Other chronic pain; F41.9 Anxiety disorder, unspecified; F32.9 Major depressive disorder, single episode, unspecified; F20.9 Schizophrenia, unspecified; Z20.828 Contact with and (suspected) exposure to other viral communicable diseases; Z90.49 Acquired absence of other specified parts of digestive tract; Z98.890 Other specified postprocedural states; Z79.2 Long term (current) use of antibiotics; Z79.899 Other long term (current) drug therapy
CPT/HCPCS: 36415; 87635; 96372; 99283; J1885

== ENCOUNTER 2020-06-23 09:55 | Emergency (ER) | payer MEDICAID ==
[~2020-06-23] VITALS: Ht 167.6 cm; Wt 97.5 kg
[2020-06-23 10:04] VITALS: BP 115/71
[2020-06-23] MEDS ORDERED: ketorolac trometh inj. 60 MG/2 ML VIAL IM ONE (12:05)
[2020-06-23] MEDS ORDERED: SULF5DRO LEFTEYE (12:31)
[2020-06-23] MEDS ORDERED: SUMA25TA35 PO (20:30)
[2020-06-23] MEDS ORDERED: ERYT1OIN6 EACHEYE (20:30)
== END 2020-06-23 12:51 | disposition home or self-care (01) ==
LOC: ER 09:58
DX: G43.909 Migraine, unspecified, not intractable, without status migrainosus (principal); E11.42 Type 2 diabetes mellitus with diabetic polyneuropathy; J45.909 Unspecified asthma, uncomplicated; G89.29 Other chronic pain; F20.9 Schizophrenia, unspecified; F41.9 Anxiety disorder, unspecified; E05.90 Thyrotoxicosis, unspecified without thyrotoxic crisis or storm; Z98.890 Other specified postprocedural states; Z90.49 Acquired absence of other specified parts of digestive tract; Z90.89 Acquired absence of other organs; Z56.0 Unemployment, unspecified; Z79.899 Other long term (current) drug therapy
CPT/HCPCS: 96372; 99283; J1885

== ENCOUNTER 2020-06-23 20:15 | Emergency (ER) | payer MEDICAID ==
[~2020-06-23] VITALS: Ht 167.6 cm; Wt 94.0 kg
[~2020-06-23 20:15] MED LIST changes: +SULF5DRO LEFTEYE
[2020-06-23 20:17] VITALS: BP 113/60
[2020-06-23] MEDS ORDERED: SUMA25TA35 PO (20:30)
[2020-06-23] MEDS ORDERED: ERYT1OIN6 EACHEYE (20:30)
[2020-06-23] MEDS ORDERED: ketorolac trometh inj. 60 MG/2 ML VIAL IM ONE (20:30)
== END 2020-06-23 20:56 | disposition home or self-care (01) ==
LOC: ER 20:16
DX: G43.909 Migraine, unspecified, not intractable, without status migrainosus (principal); J45.909 Unspecified asthma, uncomplicated; E11.42 Type 2 diabetes mellitus with diabetic polyneuropathy; G89.29 Other chronic pain; F41.9 Anxiety disorder, unspecified; F32.9 Major depressive disorder, single episode, unspecified; F20.9 Schizophrenia, unspecified; Z90.49 Acquired absence of other specified parts of digestive tract; Z98.890 Other specified postprocedural states; Z56.0 Unemployment, unspecified; Z79.2 Long term (current) use of antibiotics; Z79.899 Other long term (current) drug therapy
CPT/HCPCS: 96372; 99283; J1885

== ENCOUNTER 2020-06-26 11:30 | Emergency (ER) | payer MEDICAID ==
[~2020-06-26] VITALS: Ht 167.6 cm; Wt 98.2 kg
[~2020-06-26 11:30] MED LIST changes: +ERYT1OIN6 EACHEYE; +SUMA25TA35 PO
[2020-06-26 11:34] VITALS: BP 113/87
== END 2020-06-26 12:15 | disposition left against medical advice (07) ==
LOC: ER 11:30
DX: R19.7 Diarrhea, unspecified (principal); Z53.21 Procedure and treatment not carried out due to patient leaving prior to being seen by health care provider

== ENCOUNTER 2020-06-29 08:57 | Emergency (ER) | payer MEDICAID ==
[~2020-06-29] VITALS: Ht 167.6 cm; Wt 95.9 kg
[2020-06-29 09:05] VITALS: BP 126/87
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
[2020-06-29] MEDS ORDERED: NAPR-56 PO (09:50)
[2020-06-29] MEDS ORDERED: ketorolac tromethamine 15mg/ml inj. IM ONE (10:05)
== END 2020-06-29 10:19 | disposition home or self-care (01) ==
LOC: ER 08:57
DX: S39.92XA Unspecified injury of lower back, initial encounter (principal); G43.909 Migraine, unspecified, not intractable, without status migrainosus; E11.42 Type 2 diabetes mellitus with diabetic polyneuropathy; J45.909 Unspecified asthma, uncomplicated; G89.29 Other chronic pain; F41.9 Anxiety disorder, unspecified; F32.9 Major depressive disorder, single episode, unspecified; F20.9 Schizophrenia, unspecified; Z90.49 Acquired absence of other specified parts of digestive tract; Z90.89 Acquired absence of other organs; Z98.890 Other specified postprocedural states; Z56.0 Unemployment, unspecified; Z79.899 Other long term (current) drug therapy; X58.XXXA Exposure to other specified factors, initial encounter; Y93.89 Activity, other specified; Y92.89 Other specified places as the place of occurrence of the external cause; Y99.8 Other external cause status
CPT/HCPCS: 96372; 99283; J1885

== ENCOUNTER 2020-07-03 05:45 | Emergency (ER) | payer MEDICAID ==
[~2020-07-03] VITALS: Ht 167.6 cm; Wt 98.0 kg
[~2020-07-03 05:45] MED LIST changes: -ERYT1OIN6 EACHEYE; -SUMA25TA35 PO
[2020-07-03 05:52] VITALS: BP 123/71
[2020-07-03] MEDS ORDERED: acetaminophen 325mg tablet PO ONE (06:05)
[2020-07-03] MEDS ORDERED: proCHLORperazine 10mg tablet PO ONE (06:05)
== END 2020-07-03 06:48 | disposition home or self-care (01) ==
LOC: ER 05:46
DX: S61.211A Laceration without foreign body of left index finger without damage to nail, initial encounter (principal); R51.9 Headache, unspecified; J45.909 Unspecified asthma, uncomplicated; E11.42 Type 2 diabetes mellitus with diabetic polyneuropathy; G89.29 Other chronic pain; F41.9 Anxiety disorder, unspecified; F31.9 Bipolar disorder, unspecified; Z90.49 Acquired absence of other specified parts of digestive tract; Z98.890 Other specified postprocedural states; W45.8XXA Other foreign body or object entering through skin, initial encounter; Y93.89 Activity, other specified; Y92.89 Other specified places as the place of occurrence of the external cause; Y99.8 Other external cause status
CPT/HCPCS: 99283; Q0164

== ENCOUNTER 2020-07-08 06:15 | Emergency (ER) | payer MEDICAID ==
[~2020-07-08] VITALS: Ht 167.6 cm; Wt 97.3 kg
[2020-07-08] MEDS ORDERED: ketorolac trometh inj. 60 MG/2 ML VIAL IM ONE (06:30)
[2020-07-08] MEDS ORDERED: AMOX500C2 PO (06:48)
[2020-07-08 07:17] VITALS: BP 118/85
== END 2020-07-08 07:18 | disposition home or self-care (01) ==
LOC: ER 06:15
DX: G43.909 Migraine, unspecified, not intractable, without status migrainosus (principal); J02.9 Acute pharyngitis, unspecified; E11.42 Type 2 diabetes mellitus with diabetic polyneuropathy; J45.909 Unspecified asthma, uncomplicated; G89.29 Other chronic pain; F41.9 Anxiety disorder, unspecified; F32.9 Major depressive disorder, single episode, unspecified; F20.9 Schizophrenia, unspecified; E05.90 Thyrotoxicosis, unspecified without thyrotoxic crisis or storm; Z90.49 Acquired absence of other specified parts of digestive tract; Z98.890 Other specified postprocedural states; Z56.0 Unemployment, unspecified; Z79.899 Other long term (current) drug therapy
CPT/HCPCS: 96372; 99283; J1885

== ENCOUNTER 2020-07-17 21:11 | Emergency (ER) | payer MEDICAID ==
[~2020-07-17 21:11] MED LIST changes: -ERYT1OIN6 LEFTEYE
== END 2020-07-17 21:59 | disposition left against medical advice (07) ==
LOC: ER 21:12
DX: Z53.21 Procedure and treatment not carried out due to patient leaving prior to being seen by health care provider (principal)

== ENCOUNTER 2020-07-18 12:24 | Emergency (ER) | payer MEDICAID ==
[~2020-07-18] VITALS: Ht 167.6 cm; Wt 110.0 kg
[2020-07-18 12:30] VITALS: BP 133/76
[2020-07-18] MEDS ORDERED: ketorolac trometh. 30mg/ml inj. IM ONE (13:20)
== END 2020-07-18 14:12 | disposition home or self-care (01) ==
LOC: ER 12:26
DX: S83.92XA Sprain of unspecified site of left knee, initial encounter (principal); G43.909 Migraine, unspecified, not intractable, without status migrainosus; J45.909 Unspecified asthma, uncomplicated; E11.9 Type 2 diabetes mellitus without complications; G89.29 Other chronic pain; M54.9 Dorsalgia, unspecified; F41.9 Anxiety disorder, unspecified; F32.9 Major depressive disorder, single episode, unspecified; F20.9 Schizophrenia, unspecified; E07.9 Disorder of thyroid, unspecified; G62.9 Polyneuropathy, unspecified; B02.9 Zoster without complications; E05.00 Thyrotoxicosis with diffuse goiter without thyrotoxic crisis or storm; Z56.0 Unemployment, unspecified; Z79.899 Other long term (current) drug therapy; X58.XXXA Exposure to other specified factors, initial encounter; Y93.89 Activity, other specified; Y92.89 Other specified places as the place of occurrence of the external cause; Y99.8 Other external cause status
CPT/HCPCS: 73564; 96372; 99284; J1885

== ENCOUNTER 2020-07-26 09:26 | Emergency (ER) | payer MEDICAID ==
[~2020-07-26] VITALS: Ht 167.6 cm; Wt 95.9 kg
[2020-07-26] MEDS ORDERED: ketorolac trometh inj. 60 MG/2 ML VIAL IM ONE (09:50)
== END 2020-07-26 10:23 | disposition home or self-care (01) ==
LOC: ER 09:27
DX: G89.29 Other chronic pain (principal); M54.9 Dorsalgia, unspecified; G43.909 Migraine, unspecified, not intractable, without status migrainosus; J45.909 Unspecified asthma, uncomplicated; E11.9 Type 2 diabetes mellitus without complications; E07.89 Other specified disorders of thyroid; F41.9 Anxiety disorder, unspecified; F32.9 Major depressive disorder, single episode, unspecified; E05.00 Thyrotoxicosis with diffuse goiter without thyrotoxic crisis or storm; G62.9 Polyneuropathy, unspecified; F20.9 Schizophrenia, unspecified; K46.9 Unspecified abdominal hernia without obstruction or gangrene; Z98.890 Other specified postprocedural states; Z90.49 Acquired absence of other specified parts of digestive tract; Z79.899 Other long term (current) drug therapy
CPT/HCPCS: 96372; 99284; J1885

== ENCOUNTER → 2020-08-16 | Day surgery (SDC) | payer MEDICAID ==
[2020-08-09 16:08] LABS: BASOPHILS % (AUTO) 0.7 % (0-1); EOSINOPHILS # (AUTO) 0.4 X10'3 (0-0.9); EOSINOPHILS % (AUTO) 5.6 % (0-6); LYMPHOCYTES # (AUTO) 2.8 X10'3 (1.1-4.8); LYMPHOCYTES % (AUTO) 40.9 % (21-51); MEAN CORPUSCULAR HEMOGLOBIN 29.2 PG (27.0-31.0); MEAN CORPUSCULAR HGB CONC 33.3 g/dL (33.0-36.5); MEAN CORPUSCULAR VOLUME 87.8 FL (78-98); MEAN PLATELET VOLUME 6.9 FL (7.4-10.4); MONOCYTES # (AUTO) 0.3 X10'3 (0-0.9); MONOCYTES % (AUTO) 4.2 % (2-12); NEUTROPHILS # (AUTO) 3.3 X10'3 (1.8-7.7); NEUTROPHILS % (AUTO) 48.6 % (42-75); PRE OP HEMATOCRIT 41.3 % (35.0-45.0); PRE OP HEMOGLOBIN 13.8 g/dL (12.0-16.0); PRE OP PLATELET COUNT 289 X10'3 (140-440); RED BLOOD COUNT 4.71 X10'6 (4.20-5.60); RED CELL DISTRIBUTION WIDTH 16.3 % (11.5-14.5)
[2020-08-09 16:11] LABS: CLARITY,URINE SLIGHTLY CLOUDY (Clear); COLOR,URINE YELLOW (Yellow); GLUCOSE, URINE NEGATIVE (Neg); KETONES,URINE TRACE mg/dl (Neg); LEUKOCYTE ESTERASE ,URINE NEGATIVE (Neg); NITRITES, URINE NEGATIVE (Neg); OCCULT BLOOD,URINE NEGATIVE (Neg); PROTEIN,URINE NEGATIVE (Neg); UROBILINOGEN,URINE 0.2 E.U/dL (0.2-1.0)
[2020-08-09 16:13] LABS: UA COLLECTION TYPE CLN CATCH MIDSTREAM
[2020-08-09 16:19] LABS: PRE OP PROTIME 10.6 SECONDS (9.0-12.0)
[2020-08-09 16:21] LABS: ALBUMIN/GLOBULIN RATIO 0.9 (1.1-1.5); ALKALINE PHOSPHATASE 121 IU/L (46-116); BLOOD UREA NITROGEN 11 MG/DL (7-18); BUN/CREATININE RATIO 11.8 (6.6-38.0); CALCIUM 8.9 MG/DL (8.5-10.1); CHLORIDE 102 MMOL/L (99-107); CREATININE 0.93 MG/DL (0.40-0.90); PRE OP ALT 28 U/L (30-65); PRE OP ANION GAP 6 (8-16); PRE OP AST 18 U/L (10-37); PRE OP BILIRUB, TOTAL 0.2 MG/DL (0.0-1.0); PRE OP GLUCOSE 105 MG/DL (70-104); PRE OP POTASSIUM 3.5 MMOL/L (3.4-5.1); PRE OP SODIUM 138 MMOL/L (135-145); TOTAL CARBON DIOXIDE 29.6 MMOL/L (24-32); TOTAL PROTEIN 8.5 G/DL (6.4-8.2); eGFR 86 ML/MIN
[2020-08-09 16:27] LABS: MUCUS STRANDS MANY /LPF (Neg)
[2020-08-09 16:28] LABS: BACTERIA,URINE FEW /HPF (Neg); SQUAMOUS EPITHELIAL CELL,UR MODERATE /LPF (FEW)
[2020-08-09 16:29] LABS: RBC,URINE 0-2 /HPF (0-2); TRANSITIONAL EPI CELLS,URINE FEW /HPF; WBC,URINE 0-4 /HPF (0-4)
[2020-08-09 16:49] LABS: HCG SERUM QL NEGATIVE
[~2020-08-16] VITALS: Ht 167.6 cm; Wt 97.5 kg
[2020-08-16] VITALS (7 sets, daily range): BP systolic 111–118; BP diastolic 62–78
[~2020-08-16] MED LIST changes: -AZIT500T9 PO; +BUPIVAcaine/PF 2.5 mg/ml (0.25%) 30ml vial ONE; +CEPH500C5 PO; +CHLO50TA24 PO; -CYCL-1 PO; -GABA300C PO; +IBUP-1985 PO; +LIDO700A32 TOP; +LIDOcaine 2% (20mg/ml) 5ml vial ONE; +MONT10TA97 PO; -NAPR-56 PO; +NEOM10DR45 LEFT EAR; -PANT-47 PO; -PRAZ2CAP2 PO; +PRAZ5CAP2 PO; -SULF5DRO LEFTEYE; -THO10T PO; -TRAM100C3 PO; +ceFOXitin sod/dextrose 2g/50ml 50 ML IV ONE; +dexamethasone sod phosphate 4mg/ml inj. ONE; +famotidine 20mg tablet PO ONE; +fentaNYL/PF 50MCG/1 ML 2ML syringe ONE; +glycopyrrolate 0.2mg/ml inj ONE; +meperidine/PF 25mg/ml syringe IV PRN; +midazolam 2 mg/2 ml injection ONE; +morphine 2 MG/ML inj. syringe IV PRN; +morphine 4 MG/ML inj SYRINge IV PRN; +neostigmine methylsulfate 1 MG/ML 10ml vial ONE; +ondansetron/PF 4mg/2ml inj IV PRN; +ondansetron/PF 4mg/2ml inj ONE; +oxyCODONE/APAP 10/325mg tablet PO ONE; +proCHLORperazine 10 MG/2 ml inj IV PRN; +propofol inj 20 ML IV ONE; +ringers solution, lacted 1,000 ML IV SCH; +rocuronium 10mg/ml inj IV ONE; +sevoflurane 250ml liquid IH ONE
--- NOTE | 2020-08-16 13:49 | NUR ---
Received from OR via , accompanied by Anesthesiologist DR AGUILAR and report given by Anesthesiolgist. AWAKENS TO VOICE. VITALS STABLE. DRESSINGS DI. C/O SURGICAL PAIN TO ABD. ABD SOFT.
--- NOTE | 2020-08-16 14:49 | NUR ---
ALERT AND ORIENTED. VITALS STABLE. DRESSINGS DI. STATES PAIN IMPROVING. HOME WITH HER SPOUSE AT THIS TIME.
== END | disposition home or self-care (01) ==
LOC: PAS 10:40
PROVIDERS: ATTEND Obstetrics & Gynecology
DX: Z30.2 Encounter for sterilization (principal); R10.2 Pelvic and perineal pain; N73.6 Female pelvic peritoneal adhesions (postinfective); N83.8 Other noninflammatory disorders of ovary, fallopian tube and broad ligament; F43.10 Post-traumatic stress disorder, unspecified; E66.9 Obesity, unspecified; Z68.37 Body mass index [BMI] 37.0-37.9, adult; J45.909 Unspecified asthma, uncomplicated; Z79.899 Other long term (current) drug therapy; Z98.890 Other specified postprocedural states; F17.210 Nicotine dependence, cigarettes, uncomplicated; Z88.8 Allergy status to other drugs, medicaments and biological substances; Z88.5 Allergy status to narcotic agent; Z20.828 Contact with and (suspected) exposure to other viral communicable diseases
CPT/HCPCS: 36415; 58670; 76937; 80053; 81001; 82948; 84703; 85025; 85610; 85730; 86885; 86900; 86901; 87635; C1758; J0694; J1100; J2001; J2175; J2250; J2270; J2405; J2704; J2710; J3010; J3490; A4618; J7120

== ENCOUNTER 2020-08-19 11:29 | Emergency (ER) | payer MEDICAID ==
[~2020-08-19] VITALS: Ht 167.6 cm; Wt 98.2 kg
[~2020-08-19 11:29] MED LIST changes: -BUPIVAcaine/PF 2.5 mg/ml (0.25%) 30ml vial ONE; -CEPH500C5 PO; -IBUP-1985 PO; -LIDO700A32 TOP; -LIDOcaine 2% (20mg/ml) 5ml vial ONE; +MONT10TA32 PO; -MONT10TA97 PO; -NEOM10DR45 LEFT EAR; -ceFOXitin sod/dextrose 2g/50ml 50 ML IV ONE; -dexamethasone sod phosphate 4mg/ml inj. ONE; -famotidine 20mg tablet PO ONE; -fentaNYL/PF 50MCG/1 ML 2ML syringe ONE; -glycopyrrolate 0.2mg/ml inj ONE; -meperidine/PF 25mg/ml syringe IV PRN; -midazolam 2 mg/2 ml injection ONE; -morphine 2 MG/ML inj. syringe IV PRN; -morphine 4 MG/ML inj SYRINge IV PRN; -neostigmine methylsulfate 1 MG/ML 10ml vial ONE; -ondansetron/PF 4mg/2ml inj IV PRN; -ondansetron/PF 4mg/2ml inj ONE; -oxyCODONE/APAP 10/325mg tablet PO ONE; -proCHLORperazine 10 MG/2 ml inj IV PRN; -propofol inj 20 ML IV ONE; -ringers solution, lacted 1,000 ML IV SCH; -rocuronium 10mg/ml inj IV ONE; -sevoflurane 250ml liquid IH ONE
[2020-08-19] MEDS ORDERED: ketorolac trometh inj. 60 MG/2 ML VIAL IM ONE (11:55)
[2020-08-19] MEDS ORDERED: CEPH-585 PO (11:55)
[2020-08-19 12:37] VITALS: BP 108/61
== END 2020-08-19 12:37 | disposition home or self-care (01) ==
LOC: ER 11:29
DX: T81.9XXA Unspecified complication of procedure, initial encounter (principal); L03.311 Cellulitis of abdominal wall; G43.909 Migraine, unspecified, not intractable, without status migrainosus; J45.909 Unspecified asthma, uncomplicated; E11.9 Type 2 diabetes mellitus without complications; E78.00 Pure hypercholesterolemia, unspecified; G89.29 Other chronic pain; M54.9 Dorsalgia, unspecified; F41.9 Anxiety disorder, unspecified; F32.9 Major depressive disorder, single episode, unspecified; F20.9 Schizophrenia, unspecified; Z59.0 Homelessness; Z79.899 Other long term (current) drug therapy
CPT/HCPCS: 96372; 99283; J1885

== ENCOUNTER 2020-08-22 14:42 | Emergency (ER) | payer MEDICAID ==
[~2020-08-22] VITALS: Ht 167.6 cm; Wt 100.9 kg
[~2020-08-22 14:42] MED LIST changes: +CEPH500C5 PO; +MONT10TA26 PO; -MONT10TA32 PO
[2020-08-22 15:10] VITALS: BP 140/70
[2020-08-22] MEDS ORDERED: ketorolac trometh. 30mg/ml inj. IM ONE (15:45)
== END 2020-08-22 16:15 | disposition home or self-care (01) ==
LOC: ER 14:42
DX: T81.9XXD Unspecified complication of procedure, subsequent encounter (principal); J44.9 Chronic obstructive pulmonary disease, unspecified; G89.29 Other chronic pain; G43.909 Migraine, unspecified, not intractable, without status migrainosus; E11.9 Type 2 diabetes mellitus without complications; E07.9 Disorder of thyroid, unspecified; F41.9 Anxiety disorder, unspecified; F32.9 Major depressive disorder, single episode, unspecified; F20.9 Schizophrenia, unspecified; Z48.00 Encounter for change or removal of nonsurgical wound dressing; Z59.0 Homelessness; Z98.890 Other specified postprocedural states; Z79.899 Other long term (current) drug therapy
CPT/HCPCS: 96372; 99283; J1885

== ENCOUNTER 2020-08-28 10:08 | Emergency (ER) | payer MEDICAID ==
[~2020-08-28] VITALS: Ht 167.6 cm; Wt 99.2 kg
[~2020-08-28 10:08] MED LIST changes: -CEPH500C5 PO; -MONT10TA26 PO; +MONT10TA97 PO
[2020-08-28 10:11] VITALS: BP 127/81
[2020-08-28] MEDS ORDERED: LIDOcaine 5% patch TP STA (10:27)
[2020-08-28] MEDS ORDERED: ketorolac tromethamine 15mg/ml inj. IM ONE (10:30)
[2020-08-28] MEDS ORDERED: IBUP-1985 PO (10:35)
[2020-08-28] MEDS ORDERED: LIDO700A32 TOP (10:35)
== END 2020-08-28 10:39 | disposition home or self-care (01) ==
LOC: ER 10:09
DX: S49.81XA Other specified injuries of right shoulder and upper arm, initial encounter (principal); M25.511 Pain in right shoulder; G43.909 Migraine, unspecified, not intractable, without status migrainosus; E11.42 Type 2 diabetes mellitus with diabetic polyneuropathy; J45.909 Unspecified asthma, uncomplicated; G89.29 Other chronic pain; F41.9 Anxiety disorder, unspecified; F32.9 Major depressive disorder, single episode, unspecified; F20.9 Schizophrenia, unspecified; E05.90 Thyrotoxicosis, unspecified without thyrotoxic crisis or storm; Z87.440 Personal history of urinary (tract) infections; Z90.89 Acquired absence of other organs; Z98.890 Other specified postprocedural states; Z56.0 Unemployment, unspecified; Z79.899 Other long term (current) drug therapy; X58.XXXA Exposure to other specified factors, initial encounter; Y93.89 Activity, other specified; Y92.89 Other specified places as the place of occurrence of the external cause; Y99.8 Other external cause status
CPT/HCPCS: 96372; 99284; J1885

== ENCOUNTER 2020-08-30 11:32 | Emergency (ER) | payer MEDICAID ==
[~2020-08-30] VITALS: Ht 167.6 cm; Wt 101.7 kg
[~2020-08-30 11:32] MED LIST changes: +IBUP-1985 PO; +LIDO700A32 TOP
[2020-08-30 11:38] VITALS: BP 127/86
[2020-08-30] MEDS ORDERED: NEOM10DR45 LEFT EAR (12:01)
[2020-08-30] MEDS ORDERED: ketorolac trometh. 30mg/ml inj. IM ONE (12:10)
--- NOTE | 2020-08-30 12:25 | NUR ---
ADMIN TORODOL ORDERED. PT GIVEN RX FOR DC.
== END 2020-08-30 12:27 | disposition home or self-care (01) ==
LOC: ER 11:34
DX: H92.02 Otalgia, left ear (principal); J45.909 Unspecified asthma, uncomplicated; E07.9 Disorder of thyroid, unspecified; G89.29 Other chronic pain; F41.9 Anxiety disorder, unspecified; F32.9 Major depressive disorder, single episode, unspecified; F20.9 Schizophrenia, unspecified; E11.9 Type 2 diabetes mellitus without complications; G43.909 Migraine, unspecified, not intractable, without status migrainosus; Z98.890 Other specified postprocedural states; Z56.0 Unemployment, unspecified; Z79.899 Other long term (current) drug therapy; W57.XXXA Bitten or stung by nonvenomous insect and other nonvenomous arthropods, initial encounter; Y93.89 Activity, other specified; Y92.89 Other specified places as the place of occurrence of the external cause; Y99.8 Other external cause status
CPT/HCPCS: 96372; 99283; J1885

== ENCOUNTER 2020-08-31 11:25 | Emergency (ER) | payer MEDICAID ==
[~2020-08-31] VITALS: Ht 167.6 cm; Wt 101.3 kg
[~2020-08-31 11:25] MED LIST changes: +NEOM10DR45 LEFT EAR
[2020-08-31 11:32] VITALS: BP 128/81
[2020-08-31] MEDS ORDERED: normal saline 1000ML IV soln IVB ONE (11:50)
[2020-08-31 12:38] LABS: BASOPHILS % (AUTO) 0.4 % (0-1); EOSINOPHILS # (AUTO) 0.5 X10'3 (0-0.9); HEMATOCRIT 34.9 % (35.0-45.0); HEMOGLOBIN 11.5 g/dl (12.0-16.0); LYMPHOCYTES # (AUTO) 1.3 X10'3 (1.1-4.8); LYMPHOCYTES % (AUTO) 11.3 % (21-51); MEAN CORPUSCULAR HEMOGLOBIN 28.9 PG (27.0-31.0); MEAN CORPUSCULAR VOLUME 87.7 FL (78-98); MEAN PLATELET VOLUME 6.5 FL (7.4-10.4); MONOCYTES # (AUTO) 0.3 X10'3 (0-0.9); MONOCYTES % (AUTO) 2.2 % (2-12); NEUTROPHILS # (AUTO) 9.8 X10'3 (1.8-7.7); NEUTROPHILS % (AUTO) 82.1 % (42-75); PLATELET COUNT 325 X10'3 (140-440); RED BLOOD COUNT 3.98 X10'6 (4.20-5.60); RED CELL DISTRIBUTION WIDTH 15.8 % (11.5-14.5); WHITE BLOOD COUNT 11.9 X10'3 (4.5-11.0)
[2020-08-31 13:00] LABS: ALANINE AMINOTRANSFERASE 37 U/L (12-78); ALBUMIN 3.2 G/DL (3.4-5.0); ALBUMIN/GLOBULIN RATIO 0.8 (1.1-1.5); ALKALINE PHOSPHATASE 118 IU/L (46-116); ANION GAP 5 (8-16); ASPARTATE AMINO TRANSFERASE 52 U/L (10-37); BILIRUBIN,TOTAL 0.2 MG/DL (0.1-1.0); BLOOD UREA NITROGEN 8 MG/DL (7-18); BUN/CREATININE RATIO 12.5 (6.6-38.0); CALCIUM 7.9 MG/DL (8.5-10.1); CHLORIDE 101 MMOL/L (99-107); CREATININE 0.64 MG/DL (0.40-0.90); ETHANOL < 0.010 GM/DL (0.0-0.010); GLUCOSE 106 MG/DL (70-104); POTASSIUM 4.2 MMOL/L (3.5-5.1); SODIUM 137 MMOL/L (135-145); TOTAL CARBON DIOXIDE 31.1 MMOL/L (24-32); eGFR > 90 ML/MIN
[2020-08-31] MEDS ORDERED: ketorolac trometh. 30mg/ml inj. IV ONE (13:30)
--- NOTE | 2020-08-31 14:36 | NUR ---
PT STANDING AT THE DOOR STATING SHE IS FEELING MUCH BETTER AND WANTS TO GO HOME. NOTIFY PROVIDER ANGLE MANRIQUE WHO COMES IN THE ROOM TO TALK TO PT AND AGREES THAT SHE IS FEELING BETTER AND CAN GO HOME. PT CALLS HER FOR A RIDE HOME. DC IV.
== END 2020-08-31 14:45 | disposition home or self-care (01) ==
LOC: ER 11:28
DX: R10.12 Left upper quadrant pain (principal); R10.32 Left lower quadrant pain; B34.9 Viral infection, unspecified; R19.7 Diarrhea, unspecified; R41.0 Disorientation, unspecified; R53.1 Weakness; R42 Dizziness and giddiness; G43.909 Migraine, unspecified, not intractable, without status migrainosus; E11.42 Type 2 diabetes mellitus with diabetic polyneuropathy; J45.909 Unspecified asthma, uncomplicated; E05.90 Thyrotoxicosis, unspecified without thyrotoxic crisis or storm; G89.29 Other chronic pain; F41.9 Anxiety disorder, unspecified; F32.9 Major depressive disorder, single episode, unspecified; F20.9 Schizophrenia, unspecified; Z87.440 Personal history of urinary (tract) infections; Z90.89 Acquired absence of other organs; Z98.890 Other specified postprocedural states; Z56.0 Unemployment, unspecified; Z79.2 Long term (current) use of antibiotics; Z79.899 Other long term (current) drug therapy
CPT/HCPCS: 36415; 80053; 80320; 85025; 93005; 96361; 96374; 99284; J1885; J7030

== ENCOUNTER 2020-09-16 10:36 | Emergency (ER) | payer MEDICAID ==
[~2020-09-16] VITALS: Ht 167.6 cm; Wt 94.5 kg
[~2020-09-16 10:36] MED LIST changes: -NEOM10DR45 LEFT EAR
[2020-09-16] MEDS ORDERED: albuterol 2.5 MG/3 ML nebule NEB ONE (10:50)
[2020-09-16] MEDS ORDERED: ipratropium/albuterol 3ml nebule NEB ONE (10:50)
[2020-09-16] MEDS ORDERED: predniSONE 20 mg tablet PO ONE (10:50)
[2020-09-16 11:07] VITALS: BP 137/81
[2020-09-16] MEDS ORDERED: DEXAMETHASONE 6 MG TABLET PO ONE (11:10)
[2020-09-16] MEDS ORDERED: azithromycin 250mg tablet PO ONE (11:10)
[2020-09-16] MEDS ORDERED: AZIT-63 PO (11:21)
[2020-09-16] MEDS ORDERED: DEXA6TAB6 PO (11:21)
[2020-09-16] MEDS ORDERED: HYDROcodone/acetaminophen 5mg/325mg tablet PO ONE (11:25)
[2020-09-16] MEDS ORDERED: ketorolac trometh inj. 60 MG/2 ML VIAL IM ONE (11:25)
[2020-09-16] MEDS ORDERED: HYDR-3965 PO (11:27)
--- NOTE | 2020-09-16 11:39 | NUR ---
Discussed pt's ER use w/ Jeannette, perinatal social worker seeking her assistance w/ [facility] in an effort to reduce ED visits; 52 in 2020. Suggested looking into whether nebulizer might be an option to aid with asthma symptoms, which currently appear resolved AED pt laughing and engaging readily with staff. No respiratory distress noted now or upon arrival.
== END 2020-09-16 11:54 | disposition home or self-care (01) ==
LOC: ER 10:37
DX: J45.901 Unspecified asthma with (acute) exacerbation (principal); E11.9 Type 2 diabetes mellitus without complications; E05.90 Thyrotoxicosis, unspecified without thyrotoxic crisis or storm; G89.29 Other chronic pain; M54.9 Dorsalgia, unspecified; F41.9 Anxiety disorder, unspecified; F32.9 Major depressive disorder, single episode, unspecified; F20.9 Schizophrenia, unspecified; F17.200 Nicotine dependence, unspecified, uncomplicated; Z56.0 Unemployment, unspecified; Z79.899 Other long term (current) drug therapy; Z98.890 Other specified postprocedural states
CPT/HCPCS: 71045; 93005; 94640; 96372; 99284; J1885; J7512; 94760; J8540

== ENCOUNTER 2020-10-10 10:37 | Emergency (ER) | payer MEDICAID ==
[~2020-10-10] VITALS: Ht 167.6 cm; Wt 91.0 kg
[~2020-10-10 10:37] MED LIST changes: +DEXA6TAB6 PO; +HYDR-3965 PO
[2020-10-10] MEDS ORDERED: ketorolac tromethamine 15mg/ml inj. IM ONE (11:25)
--- NOTE | 2020-10-10 11:41 | NUR ---
patient ambulated to xray with a limp
[2020-10-10] MEDS ORDERED: acetaminophen 325mg tablet PO ONE ×2 (12:15)
[2020-10-10 12:30] VITALS: BP 122/76
== END 2020-10-10 12:46 | disposition home or self-care (01) ==
LOC: ER 10:37
DX: S33.9XXA Sprain of unspecified parts of lumbar spine and pelvis, initial encounter (principal); S39.92XA Unspecified injury of lower back, initial encounter; J45.909 Unspecified asthma, uncomplicated; E11.9 Type 2 diabetes mellitus without complications; G89.29 Other chronic pain; Z86.69 Personal history of other diseases of the nervous system and sense organs; Z87.440 Personal history of urinary (tract) infections; Z98.890 Other specified postprocedural states; Z90.49 Acquired absence of other specified parts of digestive tract; Z98.891 History of uterine scar from previous surgery; Z56.0 Unemployment, unspecified; Z79.899 Other long term (current) drug therapy; W03.XXXA Other fall on same level due to collision with another person, initial encounter; Z91.81 History of falling; Y93.01 Activity, walking, marching and hiking; Y92.098 Other place in other non-institutional residence as the place of occurrence of the external cause; Y99.8 Other external cause status
CPT/HCPCS: 72220; 96372; 99284; J1885

== ENCOUNTER 2020-10-24 01:44 | Emergency (ER) | payer MEDICAID ==
[~2020-10-24] VITALS: Ht 167.6 cm; Wt 96.3 kg
[~2020-10-24 01:44] MED LIST changes: -HYDR-3965 PO
[2020-10-24 01:55] VITALS: BP 125/78
[2020-10-24 02:46] LABS: BASOPHILS # (AUTO) 0.1 X10'3 (0-0.2); BASOPHILS % (AUTO) 1.2 % (0-1); EOSINOPHILS # (AUTO) 0.5 X10'3 (0-0.9); EOSINOPHILS % (AUTO) 6.3 % (0-6); HEMATOCRIT 35.6 % (35.0-45.0); HEMOGLOBIN 11.7 g/dl (12.0-16.0); LYMPHOCYTES # (AUTO) 3.1 X10'3 (1.1-4.8); LYMPHOCYTES % (AUTO) 36.9 % (21-51); MEAN CORPUSCULAR HEMOGLOBIN 28.4 PG (27.0-31.0); MEAN CORPUSCULAR HGB CONC 32.8 g/dL (33.0-36.5); MEAN CORPUSCULAR VOLUME 86.7 FL (78-98); MEAN PLATELET VOLUME 7.2 FL (7.4-10.4); MONOCYTES # (AUTO) 0.4 X10'3 (0-0.9); MONOCYTES % (AUTO) 4.5 % (2-12); NEUTROPHILS # (AUTO) 4.3 X10'3 (1.8-7.7); NEUTROPHILS % (AUTO) 51.1 % (42-75); PLATELET COUNT 354 X10'3 (140-440); RED BLOOD COUNT 4.11 X10'6 (4.20-5.60); RED CELL DISTRIBUTION WIDTH 16.1 % (11.5-14.5); WHITE BLOOD COUNT 8.5 X10'3 (4.5-11.0)
[2020-10-24 02:50] LABS: ALANINE AMINOTRANSFERASE 29 U/L (12-78); ALBUMIN 3.3 G/DL (3.4-5.0); ALBUMIN/GLOBULIN RATIO 0.8 (1.1-1.5); ALKALINE PHOSPHATASE 147 IU/L (46-116); ANION GAP 10 (8-16); ASPARTATE AMINO TRANSFERASE 18 U/L (10-37); BILIRUBIN,TOTAL 0.1 MG/DL (0.1-1.0); BLOOD UREA NITROGEN 12 MG/DL (7-18); BUN/CREATININE RATIO 13.3 (6.6-38.0); CALCIUM 8.1 MG/DL (8.5-10.1); CHLORIDE 107 MMOL/L (99-107); GLUCOSE 125 MG/DL (70-104); LIPASE 89 U/L (73-393); POTASSIUM 3.2 MMOL/L (3.5-5.1); SODIUM 141 MMOL/L (135-145); TOTAL PROTEIN 7.3 G/DL (6.4-8.2); eGFR 90 ML/MIN
[2020-10-24] MEDS ORDERED: potassium Cl 20 mEq SR tablet PO STA (02:55)
== END 2020-10-24 03:24 | disposition left against medical advice (07) ==
LOC: ER 01:44
DX: R10.9 Unspecified abdominal pain (principal); Z53.21 Procedure and treatment not carried out due to patient leaving prior to being seen by health care provider
CPT/HCPCS: 36415; 80053; 83690; 85025

== ENCOUNTER 2020-11-02 19:36 | Emergency (ER) | payer MEDICAID ==
[~2020-11-02] VITALS: Ht 167.6 cm; Wt 100.6 kg
[2020-11-02 21:30] LABS: BASOPHILS % (AUTO) 0.7 % (0-1); EOSINOPHILS # (AUTO) 0.6 X10'3 (0-0.9); EOSINOPHILS % (AUTO) 10.1 % (0-6); HEMATOCRIT 36.8 % (35.0-45.0); HEMOGLOBIN 11.9 g/dl (12.0-16.0); LYMPHOCYTES # (AUTO) 2.5 X10'3 (1.1-4.8); LYMPHOCYTES % (AUTO) 38.7 % (21-51); MEAN CORPUSCULAR HGB CONC 32.3 g/dL (33.0-36.5); MEAN CORPUSCULAR VOLUME 86.7 FL (78-98); MEAN PLATELET VOLUME 6.8 FL (7.4-10.4); MONOCYTES # (AUTO) 0.4 X10'3 (0-0.9); MONOCYTES % (AUTO) 6.2 % (2-12); NEUTROPHILS # (AUTO) 2.8 X10'3 (1.8-7.7); NEUTROPHILS % (AUTO) 44.3 % (42-75); PLATELET COUNT 251 X10'3 (140-440); RED BLOOD COUNT 4.24 X10'6 (4.20-5.60); RED CELL DISTRIBUTION WIDTH 16.8 % (11.5-14.5); WHITE BLOOD COUNT 6.4 X10'3 (4.5-11.0)
--- NOTE | 2020-11-02 21:39 | NUR ---
Patient unable to give urine sample, just went to the bathroom. She suggested I straight cath her and I did w/o luck.
[2020-11-02 21:40] LABS: ALANINE AMINOTRANSFERASE 102 U/L (12-78); ALBUMIN 3.4 G/DL (3.4-5.0); ALBUMIN/GLOBULIN RATIO 0.8 (1.1-1.5); ALKALINE PHOSPHATASE 168 IU/L (46-116); ANION GAP 9 (8-16); ASPARTATE AMINO TRANSFERASE 86 U/L (10-37); BILIRUBIN,TOTAL 0.2 MG/DL (0.1-1.0); BLOOD UREA NITROGEN 6 MG/DL (7-18); BUN/CREATININE RATIO 5.9 (6.6-38.0); CALCIUM 8.8 MG/DL (8.5-10.1); CHLORIDE 104 MMOL/L (99-107); CREATININE 1.02 MG/DL (0.40-0.90); GLUCOSE 115 MG/DL (70-104); POTASSIUM 3.7 MMOL/L (3.5-5.1); SODIUM 141 MMOL/L (135-145); TOTAL CARBON DIOXIDE 28.4 MMOL/L (24-32); TOTAL PROTEIN 7.6 G/DL (6.4-8.2); eGFR 77 ML/MIN
[2020-11-02] MEDS ORDERED: HYDROcodone/acetaminophen 5mg/325mg tablet PO ONE ×2 (21:55→22:40)
[2020-11-02] MEDS ORDERED: furosemide 20MG tablet PO ONE (22:40)
[2020-11-02] MEDS ORDERED: ketorolac trometh. 30mg/ml inj. IM ONE (22:40)
[2020-11-02] MEDS ORDERED: ketorolac trometh inj. 60 MG/2 ML VIAL IM ONE (22:45)
[2020-11-02] MEDS ORDERED: levoTHYROXINE 125mcg tablet PO ONE (22:45)
[2020-11-02 23:03] VITALS: BP 146/68
== END 2020-11-02 23:02 | disposition home or self-care (01) ==
LOC: ER 19:37
DX: R74.01 Elevation of levels of liver transaminase levels (principal); E03.9 Hypothyroidism, unspecified; G43.909 Migraine, unspecified, not intractable, without status migrainosus; E11.42 Type 2 diabetes mellitus with diabetic polyneuropathy; J45.909 Unspecified asthma, uncomplicated; E05.90 Thyrotoxicosis, unspecified without thyrotoxic crisis or storm; G89.29 Other chronic pain; F41.9 Anxiety disorder, unspecified; F32.9 Major depressive disorder, single episode, unspecified; F20.9 Schizophrenia, unspecified; Z87.440 Personal history of urinary (tract) infections; Z90.89 Acquired absence of other organs; Z98.890 Other specified postprocedural states; Z56.0 Unemployment, unspecified; Z79.899 Other long term (current) drug therapy
CPT/HCPCS: 36415; 80053; 83735; 84443; 85025; 96372; 99284; J1885

== ENCOUNTER 2020-12-01 11:19 | Emergency (ER) | payer MEDICAID ==
[~2020-12-01] VITALS: Ht 167.6 cm; Wt 96.4 kg
[~2020-12-01 11:19] MED LIST changes: +MONT10TA32 PO; -MONT10TA97 PO
[2020-12-01 11:40] VITALS: BP 134/8
== END 2020-12-01 18:19 | disposition left against medical advice (07) ==
LOC: ER 11:19
DX: R11.10 Vomiting, unspecified (principal); Z53.21 Procedure and treatment not carried out due to patient leaving prior to being seen by health care provider

== ENCOUNTER 2020-12-26 03:45 | Emergency (ER) | payer MEDICAID ==
[~2020-12-26] VITALS: Ht 167.6 cm; Wt 96.0 kg
[2020-12-26 03:48] VITALS: BP 112/59
--- NOTE | 2020-12-26 04:26 | NUR ---
Pt took sample cup to the bathroom, later left the bathroom, put her sample cup in her ER room, then left out the ambulance bay door.
== END 2020-12-26 04:29 | disposition left against medical advice (07) ==
LOC: ER 03:46
DX: K42.9 Umbilical hernia without obstruction or gangrene (principal); G43.909 Migraine, unspecified, not intractable, without status migrainosus; J45.909 Unspecified asthma, uncomplicated; E11.9 Type 2 diabetes mellitus without complications; E07.9 Disorder of thyroid, unspecified; G89.29 Other chronic pain; Z86.19 Personal history of other infectious and parasitic diseases; Z98.890 Other specified postprocedural states; Z90.49 Acquired absence of other specified parts of digestive tract; Z98.891 History of uterine scar from previous surgery; Z90.89 Acquired absence of other organs; Z56.0 Unemployment, unspecified; Z79.899 Other long term (current) drug therapy
CPT/HCPCS: 99281

== ENCOUNTER 2020-12-28 20:21 | Emergency (ER) | payer MEDICAID ==
[~2020-12-28] VITALS: Ht 167.6 cm; Wt 96.4 kg
[2020-12-28 20:29] VITALS: BP 106/60
[2020-12-28 20:58] LABS: BASOPHILS % (AUTO) 0.3 % (0-1); EOSINOPHILS # (AUTO) 0.3 X10'3 (0-0.9); EOSINOPHILS % (AUTO) 2.9 % (0-6); HEMATOCRIT 35.3 % (35.0-45.0); HEMOGLOBIN 11.8 g/dl (12.0-16.0); LYMPHOCYTES # (AUTO) 2.3 X10'3 (1.1-4.8); LYMPHOCYTES % (AUTO) 24.6 % (21-51); MEAN CORPUSCULAR HGB CONC 33.4 g/dL (33.0-36.5); MEAN CORPUSCULAR VOLUME 83.9 FL (78-98); MEAN PLATELET VOLUME 7.1 FL (7.4-10.4); MONOCYTES # (AUTO) 0.3 X10'3 (0-0.9); MONOCYTES % (AUTO) 3.5 % (2-12); NEUTROPHILS # (AUTO) 6.5 X10'3 (1.8-7.7); NEUTROPHILS % (AUTO) 68.7 % (42-75); PLATELET COUNT 258 X10'3 (140-440); RED BLOOD COUNT 4.21 X10'6 (4.20-5.60); WHITE BLOOD COUNT 9.5 X10'3 (4.5-11.0)
[2020-12-28 21:01] LABS: ALANINE AMINOTRANSFERASE 41 U/L (12-78); ALBUMIN 3.5 G/DL (3.4-5.0); ALBUMIN/GLOBULIN RATIO 0.9 (1.1-1.5); ALKALINE PHOSPHATASE 131 IU/L (46-116); ANION GAP 13 (8-16); ASPARTATE AMINO TRANSFERASE 30 U/L (10-37); BILIRUBIN,TOTAL 0.2 MG/DL (0.1-1.0); BLOOD UREA NITROGEN 7 MG/DL (7-18); BUN/CREATININE RATIO 7.1 (6.6-38.0); CHLORIDE 102 MMOL/L (99-107); CREATININE 0.99 MG/DL (0.40-0.90); GLUCOSE 133 MG/DL (70-104); POTASSIUM 3.5 MMOL/L (3.5-5.1); SODIUM 139 MMOL/L (135-145); TOTAL PROTEIN 7.5 G/DL (6.4-8.2); eGFR 80 ML/MIN
[2020-12-28] MEDS ORDERED: acetaminophen 325mg tablet PO ONE (21:30)
== END 2020-12-28 21:45 | disposition home or self-care (01) ==
LOC: ER 20:22
DX: R07.89 Other chest pain (principal); R42 Dizziness and giddiness; F17.200 Nicotine dependence, unspecified, uncomplicated; F12.90 Cannabis use, unspecified, uncomplicated; G43.909 Migraine, unspecified, not intractable, without status migrainosus; J45.909 Unspecified asthma, uncomplicated; E11.9 Type 2 diabetes mellitus without complications; G89.29 Other chronic pain; Z98.890 Other specified postprocedural states; Z90.49 Acquired absence of other specified parts of digestive tract; Z98.891 History of uterine scar from previous surgery; Z56.0 Unemployment, unspecified
CPT/HCPCS: 36415; 71045; 80053; 83880; 84484; 85025; 93005; 99285

== ENCOUNTER 2021-01-05 10:30 | Emergency (ER) | payer MEDICAID ==
[~2021-01-05] VITALS: Ht 167.6 cm; Wt 96.0 kg
[2021-01-05 10:43] VITALS: BP 120/76
[2021-01-05] MEDS ORDERED: ondansetron/PF 4mg/2ml inj IV ONE (10:50)
[2021-01-05] MEDS ORDERED: morphine 4 MG/ML inj SYRINge IV PRN (10:50)
--- NOTE | 2021-01-05 11:01 | NUR ---
TO XRAY VIA AMBULATION
[2021-01-05] MEDS ORDERED: HYDR-3965 PO (11:18)
== END 2021-01-05 11:41 | disposition home or self-care (01) ==
LOC: ER 10:31
DX: R10.33 Periumbilical pain (principal); R10.84 Generalized abdominal pain; G89.29 Other chronic pain; R11.0 Nausea; R19.7 Diarrhea, unspecified; G43.909 Migraine, unspecified, not intractable, without status migrainosus; J45.909 Unspecified asthma, uncomplicated; E11.42 Type 2 diabetes mellitus with diabetic polyneuropathy; E05.90 Thyrotoxicosis, unspecified without thyrotoxic crisis or storm; F41.9 Anxiety disorder, unspecified; F32.9 Major depressive disorder, single episode, unspecified; F20.9 Schizophrenia, unspecified; Z87.440 Personal history of urinary (tract) infections; Z90.89 Acquired absence of other organs; Z98.890 Other specified postprocedural states; Z56.0 Unemployment, unspecified; Z79.899 Other long term (current) drug therapy
CPT/HCPCS: 74018; 96374; 96375; 99284; J2270; J2405

== ENCOUNTER 2021-01-24 13:02 | Emergency (ER) | payer MEDICAID ==
[~2021-01-24] VITALS: Ht 167.6 cm; Wt 97.7 kg
[~2021-01-24 13:02] MED LIST changes: +HYDR-3965 PO
[2021-01-24 13:47] VITALS: BP 101/65
== END 2021-01-24 16:53 | disposition home or self-care (01) ==
LOC: ER 13:03
DX: K42.9 Umbilical hernia without obstruction or gangrene (principal); G43.909 Migraine, unspecified, not intractable, without status migrainosus; E11.42 Type 2 diabetes mellitus with diabetic polyneuropathy; J45.909 Unspecified asthma, uncomplicated; G89.29 Other chronic pain; F17.200 Nicotine dependence, unspecified, uncomplicated; E05.00 Thyrotoxicosis with diffuse goiter without thyrotoxic crisis or storm; E05.90 Thyrotoxicosis, unspecified without thyrotoxic crisis or storm; Z86.19 Personal history of other infectious and parasitic diseases; Z56.0 Unemployment, unspecified; Z87.440 Personal history of urinary (tract) infections; Z79.899 Other long term (current) drug therapy; Z98.890 Other specified postprocedural states
CPT/HCPCS: 99282

== ENCOUNTER 2021-02-08 10:39 | Day surgery (SDC) | payer MEDICAID ==
[2021-02-03 11:17] LABS: BASOPHILS # (AUTO) 0.1 X10'3 (0-0.2); BASOPHILS % (AUTO) 1.1 % (0-1); EOSINOPHILS # (AUTO) 0.5 X10'3 (0-0.9); LYMPHOCYTES # (AUTO) 2.6 X10'3 (1.1-4.8); MEAN CORPUSCULAR HGB CONC 33.7 g/dL (33.0-36.5); MONOCYTES # (AUTO) 0.4 X10'3 (0-0.9); MONOCYTES % (AUTO) 4.8 % (2-12); NEUTROPHILS # (AUTO) 3.9 X10'3 (1.8-7.7); NEUTROPHILS % (AUTO) 52.1 % (42-75); PRE OP HEMATOCRIT 41.8 % (35.0-45.0); PRE OP HEMOGLOBIN 14.1 g/dL (12.0-16.0); PRE OP PLATELET COUNT 284 X10'3 (140-440); RED BLOOD COUNT 4.86 X10'6 (4.20-5.60); RED CELL DISTRIBUTION WIDTH 17.5 % (11.5-14.5)
[2021-02-03 11:31] LABS: ALBUMIN 3.9 G/DL (3.4-5.0); ALBUMIN/GLOBULIN RATIO 0.9 (1.1-1.5); ALKALINE PHOSPHATASE 112 IU/L (46-116); BLOOD UREA NITROGEN 12 MG/DL (7-18); BUN/CREATININE RATIO 14.5 (6.6-38.0); CALCIUM 8.9 MG/DL (8.5-10.1); CHLORIDE 102 MMOL/L (99-107); CREATININE 0.83 MG/DL (0.40-0.90); PRE OP ALT 25 U/L (30-65); PRE OP ANION GAP 13 (8-16); PRE OP AST 17 U/L (10-37); PRE OP BILIRUB, TOTAL 0.2 MG/DL (0.0-1.0); PRE OP GLUCOSE 116 MG/DL (70-104); PRE OP POTASSIUM 3.9 MMOL/L (3.4-5.1); PRE OP SODIUM 138 MMOL/L (135-145); TOTAL CARBON DIOXIDE 22.9 MMOL/L (24-32); TOTAL PROTEIN 8.1 G/DL (6.4-8.2); eGFR > 90 ML/MIN
[~2021-02-08] VITALS: Ht 167.6 cm; Wt 96.7 kg
[2021-02-08] VITALS (9 sets, daily range): BP systolic 111–127; BP diastolic 70–83
[~2021-02-08 10:39] MED LIST changes: +BUPIVAcaine/PF 2.5 mg/ml (0.25%) 30ml vial ONE; +BUSP10TA3 PO; +CYCL-1 PO; -DEXA6TAB6 PO; +GABA300C PO; -HYDR-3965 PO; -IBUP-1985 PO; +LEVO175T7 PO; -LIDO700A32 TOP; +LIDOcaine 1% 30ml preserv. free vial ONE; +NAPR-1166 PO; +PRAZ2CAP2 PO; +QUET200T84 PO; -SYN0.088T PO; +TRAZ-256 PO; +albuterol 2.5 MG/3 ML nebule NEB ONE; +cefazolin/dext.iso 2gm/100ml IV ONE; +famotidine 20mg tablet PO ONE; +ringers solution, lacted 1,000 ML IV SCH
[2021-02-08] MEDS ORDERED: morphine 2 MG/ML inj. syringe IV PRN (11:35)
[2021-02-08] MEDS ORDERED: acetaminophen 1,000mg/100ml IV 100 ML IV PRN (11:35)
[2021-02-08] MEDS ORDERED: HYDROmorphone/PF 0.2 MG/ML SYRINGE IV PRN ×2 (11:35)
[2021-02-08] MEDS ORDERED: ondansetron/PF 4mg/2ml inj IV PRN (11:35)
[2021-02-08] MEDS ORDERED: hydrALAZINE 20mg/ml inj. IV PRN (11:35)
[2021-02-08] MEDS ORDERED: morphine 4 MG/ML inj SYRINge IV PRN (11:35)
[2021-02-08] MEDS ORDERED: labetalol 20mg/4ml (5mg/ml) syringe IV PRN (11:35)
[2021-02-08] MEDS ORDERED: proCHLORperazine 10 MG/2 ml inj IV PRN (11:35)
[2021-02-08] MEDS ORDERED: meperidine/PF 25mg/ml syringe IV PRN (11:35)
[2021-02-08] MEDS ORDERED: ringers solution, lacted 1,000 ML IV SCH (11:35)
[2021-02-08] MEDS ORDERED: LIDOcaine 1% (10mg/ml) 2ml vial ONE (12:04)
[2021-02-08] MEDS ORDERED: fentaNYL /PF 50mcg/ml 5ml ampule ONE (12:35)
[2021-02-08] MEDS ORDERED: midazolam 1 mg/ML 2ml injection ONE (12:35)
[2021-02-08] MEDS ORDERED: LIDOcaine 2% 5ml jelly ONE ×2 (12:36→13:02)
[2021-02-08] MEDS ORDERED: rocuronium 10mg/ml inj IV ONE (13:02)
[2021-02-08] MEDS ORDERED: LIDOcaine 2% (20mg/ml) 5ml vial ONE (13:02)
[2021-02-08] MEDS ORDERED: ondansetron/PF 4mg/2ml inj ONE (13:02)
[2021-02-08] MEDS ORDERED: propofol inj 20 ML IV ONE (13:02)
[2021-02-08] MEDS ORDERED: dexamethasone sod phosphate 4mg/ml inj. ONE (13:02)
[2021-02-08] MEDS ORDERED: LIDOcaine 1%/PF 5ML 10 MG/ML VIAL ONE (13:35)
[2021-02-08] MEDS ORDERED: BUPIVACAINE liposomal/PF 13.3 MG/ML vial IM ONE (13:35)
[2021-02-08] MEDS ORDERED: BUPIVAcaine/PF 2.5mg/ml (0.25%) 10ml vial ONE (13:40)
[2021-02-08] MEDS ORDERED: neostigmine methylsulfate 1 MG/ML 10ml vial ONE (14:20)
[2021-02-08] MEDS ORDERED: glycopyrrolate 0.2mg/ml inj ONE (14:20)
--- NOTE | 2021-02-08 14:27 | NUR ---
Received from OR via [facility], accompanied by Anesthesiologist DR PAULINO and report given by Anesthesiologist. PT DROWSY, DENIES PAIN, ABD BINDER ON CDI, 3 LAP SITES W/BANDAIDS. Addendum: 02/08/21 at 1448 by Tammy Christy RN Amended: Links added.
[2021-02-08] MEDS ORDERED: oxyCODONE/APAP 5-325mg tablet PO PRN ×2 (14:45)
--- NOTE | 2021-02-08 15:57 | NUR ---
PT UP AND ABLE TO AMBULATE SAFELY, PAIN IMPROVING, D/C INSTRUCTIONS GIVEN AND GONE OVER W/PT WHO VERBALIZED UNDERSTANDING. PT D/CD TO HOME VIA W/C TO PRIVATE VEHICLE W/O INCIDENT. Addendum: 02/08/21 at 1618 by Tammy Christy RN Amended: Links added.
== END 2021-02-08 15:57 | disposition home or self-care (01) ==
LOC: PAS 10:39
PROVIDERS: ATTEND Surgery
DX: K43.2 Incisional hernia without obstruction or gangrene (principal); J45.909 Unspecified asthma, uncomplicated; F17.210 Nicotine dependence, cigarettes, uncomplicated; F32.9 Major depressive disorder, single episode, unspecified; M54.30 Sciatica, unspecified side; E66.9 Obesity, unspecified; Z68.36 Body mass index [BMI] 36.0-36.9, adult; Z98.890 Other specified postprocedural states; Z79.899 Other long term (current) drug therapy; Z98.51 Tubal ligation status
CPT/HCPCS: 36415; 49654; 64488; 80053; 82948; 85025; 94640; 94760; C1781; C9290; J1100; J1170; J2001; J2250; J2405; J2704; J2710; J3010; J3490; S2900; A4215; A4618; J7120

== ENCOUNTER 2021-05-19 09:51 | Emergency (ER) | payer MEDICAID ==
[~2021-05-19] VITALS: Ht 167.6 cm; Wt 98.2 kg
[~2021-05-19 09:51] MED LIST changes: -BUPIVAcaine/PF 2.5 mg/ml (0.25%) 30ml vial ONE; -LIDOcaine 1% 30ml preserv. free vial ONE; -albuterol 2.5 MG/3 ML nebule NEB ONE; -cefazolin/dext.iso 2gm/100ml IV ONE; -famotidine 20mg tablet PO ONE; -ringers solution, lacted 1,000 ML IV SCH
[2021-05-19] MEDS ORDERED: ondansetron/PF 4mg/2ml inj IV ONE (11:10)
[2021-05-19] MEDS ORDERED: normal saline 1000ML IV soln IVB ONE (11:10)
[2021-05-19] MEDS: morphine 4 MG/ML inj SYRINge IV PRN ×2 (11:53→13:33)
[2021-05-19] MEDS: diatr meglu/diatrizoate 30ml oral sol.-(3 dose) bottle PO SCH ×3 (11:59→13:33)
[2021-05-19 12:09] LABS: BASOPHILS # (AUTO) 0.1 X10'3 (0-0.2); BASOPHILS % (AUTO) 1.1 % (0-1); EOSINOPHILS # (AUTO) 0.4 X10'3 (0-0.9); EOSINOPHILS % (AUTO) 5.6 % (0-6); HEMATOCRIT 39.1 % (35.0-45.0); HEMOGLOBIN 13.1 g/dl (12.0-16.0); LYMPHOCYTES % (AUTO) 37.9 % (21-51); MEAN CORPUSCULAR HEMOGLOBIN 29.6 PG (27.0-31.0); MEAN CORPUSCULAR HGB CONC 33.4 g/dL (33.0-36.5); MEAN CORPUSCULAR VOLUME 88.6 FL (78-98); MONOCYTES # (AUTO) 0.3 X10'3 (0-0.9); MONOCYTES % (AUTO) 4.3 % (2-12); NEUTROPHILS % (AUTO) 51.1 % (42-75); PLATELET COUNT 346 X10'3 (140-440); RED BLOOD COUNT 4.41 X10'6 (4.20-5.60); RED CELL DISTRIBUTION WIDTH 16.1 % (11.5-14.5); WHITE BLOOD COUNT 7.8 X10'3 (4.5-11.0)
[2021-05-19 12:31] LABS: ALANINE AMINOTRANSFERASE 23 U/L (12-78); ALBUMIN 3.7 G/DL (3.4-5.0); ALBUMIN/GLOBULIN RATIO 0.9 (1.1-1.5); ALKALINE PHOSPHATASE 97 IU/L (46-116); ANION GAP 8 (8-16); ASPARTATE AMINO TRANSFERASE 20 U/L (10-37); BILIRUBIN,TOTAL 0.2 MG/DL (0.1-1.0); BLOOD UREA NITROGEN 11 MG/DL (7-18); CALCIUM 8.1 MG/DL (8.5-10.1); CHLORIDE 105 MMOL/L (99-107); CREATININE 0.92 MG/DL (0.40-0.90); GLUCOSE 89 MG/DL (70-104); LIPASE < 50 U/L (73-393); POTASSIUM 4.1 MMOL/L (3.5-5.1); SODIUM 139 MMOL/L (135-145); TOTAL CARBON DIOXIDE 26.5 MMOL/L (24-32); TOTAL PROTEIN 7.7 G/DL (6.4-8.2); eGFR 87 ML/MIN
[2021-05-19] MEDS ORDERED: iohexol 300mg/ml 100ml inj. ONE (13:31)
[2021-05-19 16:00] LABS: CLARITY,URINE CLOUDY (Clear); GLUCOSE, URINE NEGATIVE (Neg); KETONES,URINE NEGATIVE (Neg); LEUKOCYTE ESTERASE ,URINE NEGATIVE (Neg); NITRITES, URINE NEGATIVE (Neg); OCCULT BLOOD,URINE LARGE (Neg); PH,URINE 7.5 (4.8-8.0); PROTEIN,URINE NEGATIVE (Neg); UROBILINOGEN,URINE 0.2 E.U/dL (0.2-1.0)
[2021-05-19 16:03] LABS: URINE HCG NEGATIVE (NEG)
[2021-05-19 16:05] LABS: COLOR,URINE AMBER (Yellow); UA COLLECTION TYPE CLN CATCH MIDSTREAM
[2021-05-19] MEDS ORDERED: oxyCODONE/APAP 5-325mg tablet PO ONE (16:05)
[2021-05-19 16:06] LABS: RBC,URINE TNTC /HPF (0-2); WBC,URINE 0-4 /HPF (0-4)
[2021-05-19 16:07] LABS: BACTERIA,URINE NONE SEEN /HPF (Neg); SQUAMOUS EPITHELIAL CELL,UR MODERATE /LPF (FEW)
[2021-05-19 16:28] VITALS: BP 107/66
== END 2021-05-19 16:30 | disposition home or self-care (01) ==
LOC: ER 09:51
DX: K42.9 Umbilical hernia without obstruction or gangrene (principal); L76.34 Postprocedural seroma of skin and subcutaneous tissue following other procedure; G43.909 Migraine, unspecified, not intractable, without status migrainosus; E11.42 Type 2 diabetes mellitus with diabetic polyneuropathy; J45.909 Unspecified asthma, uncomplicated; G89.29 Other chronic pain; F41.9 Anxiety disorder, unspecified; F32.9 Major depressive disorder, single episode, unspecified; F20.9 Schizophrenia, unspecified; E05.90 Thyrotoxicosis, unspecified without thyrotoxic crisis or storm; Z98.890 Other specified postprocedural states; Z90.89 Acquired absence of other organs; Z56.0 Unemployment, unspecified; Z79.899 Other long term (current) drug therapy; Y83.9 Surgical procedure, unspecified as the cause of abnormal reaction of the patient, or of later complication, without mention of misadventure at the time of the procedure
CPT/HCPCS: 36415; 74177; 80053; 81001; 81025; 83690; 85025; 96374; 96375; 96376; 99285; J2270; J2405; J7030; Q9963; Q9967

== ENCOUNTER 2021-06-02 08:46 | Emergency (ER) | payer MEDICAID ==
[~2021-06-02] VITALS: Ht 167.6 cm; Wt 100.0 kg
[~2021-06-02 08:46] MED LIST changes: +LIDOcaine 1% w/EPI 1:100,000 30ml vial (MDV) ONE
[2021-06-02 08:54] VITALS: BP 122/67
[2021-06-02] MEDS ORDERED: acetaminophen 325mg tablet PO ONE (09:40)
[2021-06-02] MEDS ORDERED: ibuprofen 200mg tablet PO ONE (09:40)
[2021-06-02] MEDS ORDERED: DOXY100C76 PO (09:40)
== END 2021-06-02 09:53 | disposition home or self-care (01) ==
LOC: ER 08:47
DX: L02.414 Cutaneous abscess of left upper limb (principal); G43.909 Migraine, unspecified, not intractable, without status migrainosus; J45.909 Unspecified asthma, uncomplicated; G89.29 Other chronic pain; F41.9 Anxiety disorder, unspecified; F32.9 Major depressive disorder, single episode, unspecified; F20.9 Schizophrenia, unspecified; E11.42 Type 2 diabetes mellitus with diabetic polyneuropathy; E05.90 Thyrotoxicosis, unspecified without thyrotoxic crisis or storm; Z87.440 Personal history of urinary (tract) infections; Z90.89 Acquired absence of other organs; Z98.890 Other specified postprocedural states; Z56.0 Unemployment, unspecified; Z79.899 Other long term (current) drug therapy
CPT/HCPCS: 10060; 99283

== ENCOUNTER 2021-06-29 09:50 | Emergency (ER) | payer MEDICAID ==
[~2021-06-29] VITALS: Ht 167.6 cm; Wt 98.2 kg
[~2021-06-29 09:50] MED LIST changes: -LIDOcaine 1% w/EPI 1:100,000 30ml vial (MDV) ONE
[2021-06-29 09:58] VITALS: BP 113/72
--- NOTE | 2021-06-29 11:04 | NUR ---
DR GEE AT BEDSIDE ASSESSING PT
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
[2021-06-29] MEDS ORDERED: CefTRIAXone 1000mg IM Kit (w/lidocaine diluent) IM ONE (11:10)
[2021-06-29] MEDS ORDERED: azithromycin 250mg tablet PO ONE (11:10)
[2021-06-29] MEDS ORDERED: ketorolac trometh. 30mg/ml inj. IM ONE (11:25)
== END 2021-06-29 11:40 | disposition home or self-care (01) ==
LOC: ER 09:51
DX: T74.21XA Adult sexual abuse, confirmed, initial encounter (principal); J44.9 Chronic obstructive pulmonary disease, unspecified; E11.9 Type 2 diabetes mellitus without complications; F20.9 Schizophrenia, unspecified; F32.9 Major depressive disorder, single episode, unspecified; G43.909 Migraine, unspecified, not intractable, without status migrainosus; E06.9 Thyroiditis, unspecified; Z56.0 Unemployment, unspecified; Z79.899 Other long term (current) drug therapy
CPT/HCPCS: 96372; 99284; J0696; J1885

== ENCOUNTER 2021-07-12 11:19 | Emergency (ER) | payer MEDICAID ==
[~2021-07-12] VITALS: Ht 167.6 cm; Wt 98.2 kg
[2021-07-12 12:14] LABS: BASOPHILS # (AUTO) 0.1 X10'3 (0-0.2); BASOPHILS % (AUTO) 0.8 % (0-1); EOSINOPHILS # (AUTO) 0.4 X10'3 (0-0.9); EOSINOPHILS % (AUTO) 5.2 % (0-6); HEMATOCRIT 37.1 % (35.0-45.0); LYMPHOCYTES # (AUTO) 3.3 X10'3 (1.1-4.8); LYMPHOCYTES % (AUTO) 46.3 % (21-51); MEAN CORPUSCULAR HEMOGLOBIN 30.4 PG (27.0-31.0); MEAN CORPUSCULAR VOLUME 86.9 FL (78-98); MEAN PLATELET VOLUME 6.7 FL (7.4-10.4); MONOCYTES # (AUTO) 0.2 X10'3 (0-0.9); MONOCYTES % (AUTO) 3.1 % (2-12); NEUTROPHILS # (AUTO) 3.2 X10'3 (1.8-7.7); NEUTROPHILS % (AUTO) 44.6 % (42-75); PLATELET COUNT 277 X10'3 (140-440); RED BLOOD COUNT 4.27 X10'6 (4.20-5.60); RED CELL DISTRIBUTION WIDTH 15.6 % (11.5-14.5); WHITE BLOOD COUNT 7.1 X10'3 (4.5-11.0)
[2021-07-12 12:17] LABS: CLARITY,URINE SLIGHTLY CLOUDY (Clear); COLOR,URINE YELLOW (Yellow); GLUCOSE, URINE NEGATIVE (Neg); KETONES,URINE NEGATIVE (Neg); LEUKOCYTE ESTERASE ,URINE NEGATIVE (Neg); NITRITES, URINE NEGATIVE (Neg); OCCULT BLOOD,URINE NEGATIVE (Neg); PROTEIN,URINE NEGATIVE (Neg); UA COLLECTION TYPE NON-SPECIFIED; UROBILINOGEN,URINE 0.2 E.U/dL (0.2-1.0)
[2021-07-12 12:19] LABS: URINE HCG NEGATIVE (NEG)
[2021-07-12 12:22] LABS: MUCUS STRANDS FEW /LPF (Neg); SQUAMOUS EPITHELIAL CELL,UR MANY /LPF (FEW)
[2021-07-12 12:23] LABS: BACTERIA,URINE FEW /HPF (Neg); RBC,URINE 0-2 /HPF (0-2); WBC,URINE 0-4 /HPF (0-4)
[2021-07-12 12:28] LABS: ALANINE AMINOTRANSFERASE 28 U/L (12-78); ALBUMIN 3.7 G/DL (3.4-5.0); ALBUMIN/GLOBULIN RATIO 0.9 (1.1-1.5); ALKALINE PHOSPHATASE 131 IU/L (46-116); ANION GAP 10 (8-16); ASPARTATE AMINO TRANSFERASE 25 U/L (10-37); BILIRUBIN,TOTAL 0.2 MG/DL (0.1-1.0); BLOOD UREA NITROGEN 17 MG/DL (7-18); BUN/CREATININE RATIO 15.7 (6.6-38.0); CALCIUM 7.9 MG/DL (8.5-10.1); CHLORIDE 105 MMOL/L (99-107); CREATININE 1.08 MG/DL (0.40-0.90); GLUCOSE 119 MG/DL (70-104); LIPASE 74 U/L (73-393); POTASSIUM 4.1 MMOL/L (3.5-5.1); SODIUM 140 MMOL/L (135-145); TOTAL CARBON DIOXIDE 25.1 MMOL/L (24-32); TOTAL PROTEIN 7.7 G/DL (6.4-8.2); eGFR 72 ML/MIN
[2021-07-12] MEDS ORDERED: iohexol 300mg/ml 100ml inj. ONE (15:02)
[2021-07-12] MEDS ORDERED: acetaminophen 325mg tablet PO ONE (16:30)
[2021-07-12 16:42] VITALS: BP 113/73
== END 2021-07-12 16:44 | disposition left against medical advice (07) ==
LOC: ER 11:19
DX: R10.84 Generalized abdominal pain (principal); G43.909 Migraine, unspecified, not intractable, without status migrainosus; E11.42 Type 2 diabetes mellitus with diabetic polyneuropathy; J45.909 Unspecified asthma, uncomplicated; G89.29 Other chronic pain; E05.90 Thyrotoxicosis, unspecified without thyrotoxic crisis or storm; F41.9 Anxiety disorder, unspecified; F32.9 Major depressive disorder, single episode, unspecified; Z87.440 Personal history of urinary (tract) infections; Z20.9 Contact with and (suspected) exposure to unspecified communicable disease; Z90.89 Acquired absence of other organs; Z98.890 Other specified postprocedural states; Z56.0 Unemployment, unspecified; Z79.899 Other long term (current) drug therapy
CPT/HCPCS: 36415; 74177; 80053; 81001; 81025; 83690; 85025; 99285; Q9967

== ENCOUNTER 2021-07-13 09:33 | Emergency (ER) | payer MEDICAID ==
[~2021-07-13] VITALS: Ht 167.6 cm; Wt 98.2 kg
[2021-07-13 09:48] VITALS: BP 127/93
[2021-07-13] MEDS ORDERED: ondansetron 4mg rapidly disintigrating tab PO ONE (10:25)
[2021-07-13 11:01] LABS: BASOPHILS % (AUTO) 0.5 % (0-1); EOSINOPHILS # (AUTO) 0.3 X10'3 (0-0.9); EOSINOPHILS % (AUTO) 5.2 % (0-6); HEMATOCRIT 38.9 % (35.0-45.0); HEMOGLOBIN 13.2 g/dl (12.0-16.0); LYMPHOCYTES # (AUTO) 2.7 X10'3 (1.1-4.8); LYMPHOCYTES % (AUTO) 41.4 % (21-51); MEAN CORPUSCULAR HEMOGLOBIN 29.9 PG (27.0-31.0); MEAN CORPUSCULAR HGB CONC 34.1 g/dL (33.0-36.5); MEAN CORPUSCULAR VOLUME 87.9 FL (78-98); MEAN PLATELET VOLUME 6.7 FL (7.4-10.4); MONOCYTES # (AUTO) 0.2 X10'3 (0-0.9); MONOCYTES % (AUTO) 3.6 % (2-12); NEUTROPHILS # (AUTO) 3.3 X10'3 (1.8-7.7); NEUTROPHILS % (AUTO) 49.3 % (42-75); PLATELET COUNT 287 X10'3 (140-440); RED BLOOD COUNT 4.43 X10'6 (4.20-5.60); RED CELL DISTRIBUTION WIDTH 15.8 % (11.5-14.5); WHITE BLOOD COUNT 6.6 X10'3 (4.5-11.0)
[2021-07-13 11:04] LABS: ALBUMIN 3.9 G/DL (3.4-5.0); ANION GAP 11 (8-16); BLOOD UREA NITROGEN 14 MG/DL (7-18); BUN/CREATININE RATIO 13.6 (6.6-38.0); CALCIUM 8.2 MG/DL (8.5-10.1); CHLORIDE 106 MMOL/L (99-107); CREATININE 1.03 MG/DL (0.40-0.90); GLUCOSE 98 MG/DL (70-104); POTASSIUM 4.1 MMOL/L (3.5-5.1); SODIUM 144 MMOL/L (135-145); TOTAL CARBON DIOXIDE 27.3 MMOL/L (24-32); eGFR 76 ML/MIN
[2021-07-13 11:10] LABS: HCG SERUM QL NEGATIVE
== END 2021-07-14 07:36 | disposition left against medical advice (07) ==
LOC: ER 09:33
DX: R10.84 Generalized abdominal pain (principal); R19.00 Intra-abdominal and pelvic swelling, mass and lump, unspecified site; G43.909 Migraine, unspecified, not intractable, without status migrainosus; E11.42 Type 2 diabetes mellitus with diabetic polyneuropathy; J45.909 Unspecified asthma, uncomplicated; E05.90 Thyrotoxicosis, unspecified without thyrotoxic crisis or storm; G89.29 Other chronic pain; F41.9 Anxiety disorder, unspecified; F32.9 Major depressive disorder, single episode, unspecified; F20.9 Schizophrenia, unspecified; Z87.440 Personal history of urinary (tract) infections; Z90.89 Acquired absence of other organs; Z98.890 Other specified postprocedural states; Z56.0 Unemployment, unspecified; Z79.899 Other long term (current) drug therapy
CPT/HCPCS: 36415; 80048; 84703; 85025; 99283

== ENCOUNTER 2021-07-21 16:00 | Emergency (ER) | payer MEDICAID ==
[~2021-07-21 16:00] MED LIST changes: +MONT-40 PO; -MONT10TA32 PO
== END 2021-07-21 18:48 | disposition left against medical advice (07) ==
LOC: ER 16:02
DX: R10.9 Unspecified abdominal pain (principal); Z53.21 Procedure and treatment not carried out due to patient leaving prior to being seen by health care provider

== ENCOUNTER 2021-10-11 05:26 | Day surgery (SDC) | payer MEDICAID ==
[2021-10-10 11:13] LABS: BASOPHILS % (AUTO) 0.4 % (0-1); EOSINOPHILS # (AUTO) 0.3 X10'3 (0-0.9); EOSINOPHILS % (AUTO) 4.7 % (0-6); LYMPHOCYTES # (AUTO) 2.1 X10'3 (1.1-4.8); LYMPHOCYTES % (AUTO) 35.3 % (21-51); MEAN CORPUSCULAR HEMOGLOBIN 29.4 PG (27.0-31.0); MEAN CORPUSCULAR VOLUME 86.5 FL (78-98); MEAN PLATELET VOLUME 6.8 FL (7.4-10.4); MONOCYTES # (AUTO) 0.2 X10'3 (0-0.9); MONOCYTES % (AUTO) 3.9 % (2-12); NEUTROPHILS # (AUTO) 3.3 X10'3 (1.8-7.7); NEUTROPHILS % (AUTO) 55.7 % (42-75); PRE OP HEMATOCRIT 39.1 % (35.0-45.0); PRE OP HEMOGLOBIN 13.3 g/dL (12.0-16.0); PRE OP PLATELET COUNT 318 X10'3 (140-440); RED BLOOD COUNT 4.52 X10'6 (4.20-5.60); RED CELL DISTRIBUTION WIDTH 14.5 % (11.5-14.5)
[2021-10-10 11:15] LABS: ALBUMIN 3.5 G/DL (3.4-5.0); ALBUMIN/GLOBULIN RATIO 0.9 (1.1-1.5); ALKALINE PHOSPHATASE 116 IU/L (46-116); BLOOD UREA NITROGEN 10 MG/DL (7-18); BUN/CREATININE RATIO 11.2 (6.6-38.0); CALCIUM 8.5 MG/DL (8.5-10.1); CHLORIDE 104 MMOL/L (99-107); CREATININE 0.89 MG/DL (0.40-0.90); PRE OP ALT 24 U/L (30-65); PRE OP ANION GAP 7 (8-16); PRE OP AST 17 U/L (10-37); PRE OP BILIRUB, TOTAL 0.2 MG/DL (0.0-1.0); PRE OP GLUCOSE 110 MG/DL (70-104); PRE OP POTASSIUM 3.7 MMOL/L (3.4-5.1); PRE OP SODIUM 138 MMOL/L (135-145); TOTAL CARBON DIOXIDE 26.6 MMOL/L (24-32); TOTAL PROTEIN 7.6 G/DL (6.4-8.2); eGFR 90 ML/MIN
[2021-10-10 11:16] LABS: HCG SERUM QL NEGATIVE
[2021-10-11] VITALS (11 sets, daily range): BP systolic 114–128; BP diastolic 17–85
[~2021-10-11] VITALS: Ht 167.6 cm; Wt 100.7 kg
[~2021-10-11 05:26] MED LIST changes: -NAPR-1166 PO; +ringers solution, lacted 1,000 ML IV SCH
[2021-10-11] MEDS ORDERED: cefazolin/dext.iso 2gm/50ml IV ONE (05:30)
[2021-10-11] MEDS ORDERED: famotidine 20mg tablet PO ONE (05:30)
[2021-10-11] MEDS ORDERED: ondansetron/PF 4mg/2ml inj ONE ×2 (05:38→07:21)
[2021-10-11] MEDS ORDERED: LIDOcaine 1% (10mg/ml) 2ml vial ONE (05:48)
[2021-10-11] MEDS ORDERED: LIDOcaine 1% 30ml preserv. free vial ONE (06:36)
[2021-10-11] MEDS ORDERED: BUPIVAcaine/PF 2.5 mg/ml (0.25%) 30ml vial ONE (06:36)
[2021-10-11] MEDS ORDERED: BUPIVAcaine/PF 2.5mg/ml (0.25%) 10ml vial ONE (06:40)
[2021-10-11] MEDS ORDERED: BUPIVACAINE liposomal/PF 13.3 MG/ML vial IM ONE (06:41)
[2021-10-11] MEDS ORDERED: morphine 2 MG/ML inj. syringe IV PRN (07:10)
[2021-10-11] MEDS ORDERED: morphine 4 MG/ML inj SYRINge IV PRN (07:10)
[2021-10-11] MEDS ORDERED: ondansetron/PF 4mg/2ml inj IV PRN (07:10)
[2021-10-11] MEDS ORDERED: labetalol 20mg/4ml (5mg/ml) syringe IV PRN (07:10)
[2021-10-11] MEDS ORDERED: hydrALAZINE 20mg/ml inj. IV PRN (07:10)
[2021-10-11] MEDS ORDERED: ringers solution, lacted 1,000 ML IV SCH (07:10)
[2021-10-11] MEDS ORDERED: fentaNYL/PF 50MCG/1 ML 2ML syringe IV PRN ×2 (07:10)
[2021-10-11] MEDS ORDERED: fentaNYL/PF 50MCG/1 ML 2ML syringe ONE (07:18)
[2021-10-11] MEDS ORDERED: MIDAZolam 1 MG/ML 5ML VIAL ONE (07:20)
[2021-10-11] MEDS ORDERED: dexamethasone sod phosphate 4mg/ml inj. ONE (07:21)
[2021-10-11] MEDS ORDERED: glycopyrrolate 0.2mg/ml inj ONE (07:21)
[2021-10-11] MEDS ORDERED: propofol inj 20 ML IV ONE (07:21)
[2021-10-11] MEDS ORDERED: LIDOcaine 2% (20mg/ml) 5ml vial ONE (07:21)
[2021-10-11] MEDS ORDERED: rocuronium 10mg/ml inj IV ONE ×2 (07:21)
--- NOTE | 2021-10-11 08:36 | NUR ---
Received from OR via [facility], accompanied by Anesthesiologist DR LUNDBERG and report given by Anesthesiologist. PT DROWSY, DENIES PAIN, UMBILICAL LAP SITE W/DERMABOND COVERING, CDI. Addendum: 10/11/21 at 0852 by Tammy Christy RN Amended: Links added.
[2021-10-11] MEDS ORDERED: proCHLORperazine 10 MG/2 ml inj IV PRN (09:00)
[2021-10-11] MEDS ORDERED: oxyCODONE/APAP 5-325mg tablet PO PRN (09:05)
[2021-10-11] MEDS ORDERED: ketorolac trometh. 30mg/ml inj. IV ONE (09:25)
--- NOTE | 2021-10-11 10:26 | NUR ---
PT UP AND STABLE W/AMBULATION, TO BATHROOM FOR VOID. PAIN TOLERABLE AND IMPROVED. D/C INSTRUCTIONS GIVEN AND GONE OVER W/PT WHO VERBALIZED UNDERSTANDING. PT D/CD TO HOME VIA W/C TO PRIVATE VEHICLE W/O INCIDENT. Addendum: 10/11/21 at 1039 by Tammy Christy RN Amended: Links added.
== END 2021-10-11 10:26 | disposition home or self-care (01) ==
LOC: PAS 05:26
PROVIDERS: ATTEND Surgery
DX: L76.34 Postprocedural seroma of skin and subcutaneous tissue following other procedure (principal); J45.909 Unspecified asthma, uncomplicated; F20.9 Schizophrenia, unspecified; F32.9 Major depressive disorder, single episode, unspecified; F41.9 Anxiety disorder, unspecified; G43.909 Migraine, unspecified, not intractable, without status migrainosus; G62.9 Polyneuropathy, unspecified; E03.9 Hypothyroidism, unspecified; E66.9 Obesity, unspecified; Z68.36 Body mass index [BMI] 36.0-36.9, adult; Z98.890 Other specified postprocedural states; Z79.899 Other long term (current) drug therapy; Z72.89 Other problems related to lifestyle; Z20.822 Contact with and (suspected) exposure to COVID-19; Y83.8 Other surgical procedures as the cause of abnormal reaction of the patient, or of later complication, without mention of misadventure at the time of the procedure
CPT/HCPCS: 10140; 36415; 80053; 82948; 84703; 85025; 87635; C9290; C9803; J0690; J1100; J1885; J2250; J2270; J2405; J2704; J3010; J3490; J7030; J7120; Z7506; Z7512; A4215; A4618; A7000

== ENCOUNTER 2021-11-15 10:57 | Emergency (ER) | payer MEDICAID ==
[~2021-11-15] VITALS: Ht 167.6 cm; Wt 96.4 kg
[~2021-11-15 10:57] MED LIST changes: -ringers solution, lacted 1,000 ML IV SCH
[2021-11-15 11:14] VITALS: BP 134/85
[2021-11-15] MEDS ORDERED: ketorolac tromethamine 15mg/ml inj. IM ONE (14:05)
== END 2021-11-15 14:52 | disposition home or self-care (01) ==
LOC: ER 10:57
DX: S86.912A Strain of unspecified muscle(s) and tendon(s) at lower leg level, left leg, initial encounter (principal); G43.909 Migraine, unspecified, not intractable, without status migrainosus; J45.909 Unspecified asthma, uncomplicated; E11.43 Type 2 diabetes mellitus with diabetic autonomic (poly)neuropathy; I10 Essential (primary) hypertension; G89.29 Other chronic pain; E05.90 Thyrotoxicosis, unspecified without thyrotoxic crisis or storm; Z86.19 Personal history of other infectious and parasitic diseases; Z87.440 Personal history of urinary (tract) infections; Z90.49 Acquired absence of other specified parts of digestive tract; Z98.891 History of uterine scar from previous surgery; Z90.89 Acquired absence of other organs; Z98.890 Other specified postprocedural states; Z56.0 Unemployment, unspecified; W01.0XXA Fall on same level from slipping, tripping and stumbling without subsequent striking against object, initial encounter; Y93.89 Activity, other specified; Y92.89 Other specified places as the place of occurrence of the external cause; Y99.8 Other external cause status
CPT/HCPCS: 29505; 73564; 96372; 99283; J1885

== ENCOUNTER 2022-01-10 09:48 | Day surgery (SDC) | payer MEDICAID ==
[2022-01-09 12:17] LABS: BASOPHILS # (AUTO) 0.1 X10'3 (0-0.2); BASOPHILS % (AUTO) 0.5 % (0-1); EOSINOPHILS # (AUTO) 0.4 X10'3 (0-0.9); EOSINOPHILS % (AUTO) 4.2 % (0-6); LYMPHOCYTES # (AUTO) 2.7 X10'3 (1.1-4.8); LYMPHOCYTES % (AUTO) 28.5 % (21-51); MEAN CORPUSCULAR HEMOGLOBIN 28.8 PG (27.0-31.0); MEAN CORPUSCULAR HGB CONC 32.7 g/dL (33.0-36.5); MEAN CORPUSCULAR VOLUME 88.2 FL (78-98); MEAN PLATELET VOLUME 6.9 FL (7.4-10.4); MONOCYTES # (AUTO) 0.2 X10'3 (0-0.9); MONOCYTES % (AUTO) 2.5 % (2-12); NEUTROPHILS % (AUTO) 64.3 % (42-75); PRE OP HEMOGLOBIN 11.4 g/dL (12.0-16.0); PRE OP PLATELET COUNT 298 X10'3 (140-440); RED BLOOD COUNT 3.96 X10'6 (4.20-5.60); RED CELL DISTRIBUTION WIDTH 15.7 % (11.5-14.5)
[2022-01-09 12:37] LABS: ALBUMIN 3.4 G/DL (3.4-5.0); ALBUMIN/GLOBULIN RATIO 0.9 (1.1-1.5); ALKALINE PHOSPHATASE 142 IU/L (46-116); BLOOD UREA NITROGEN 9 MG/DL (7-18); BUN/CREATININE RATIO 9.3 (6.6-38.0); CALCIUM 8.2 MG/DL (8.5-10.1); CHLORIDE 107 MMOL/L (99-107); CREATININE 0.97 MG/DL (0.40-0.90); PRE OP ALT 63 U/L (30-65); PRE OP ANION GAP 9 (8-16); PRE OP AST 39 U/L (10-37); PRE OP BILIRUB, TOTAL 0.2 MG/DL (0.0-1.0); PRE OP GLUCOSE 93 MG/DL (70-104); PRE OP POTASSIUM 4.2 MMOL/L (3.4-5.1); PRE OP SODIUM 142 MMOL/L (135-145); TOTAL CARBON DIOXIDE 26.5 MMOL/L (24-32); TOTAL PROTEIN 7.4 G/DL (6.4-8.2); eGFR 81 ML/MIN
[2022-01-09 12:39] LABS: HCG SERUM QL NEGATIVE
[~2022-01-10] VITALS: Ht 167.6 cm; Wt 103.0 kg
[~2022-01-10 09:48] MED LIST changes: +ACYC-128 PO; -PRAZ2CAP2 PO; +cefazolin/dext.iso 2gm/50ml IV ONE; +famotidine 20mg tablet PO ONE; +ringers solution, lacted 1,000 ML IV SCH
[2022-01-10] MEDS ORDERED: ringers solution, lacted 1,000 ML IV SCH (10:50)
[2022-01-10] MEDS ORDERED: hydrALAZINE 20mg/ml inj. IV PRN (10:50)
[2022-01-10] MEDS ORDERED: fentaNYL/PF 50MCG/1 ML 2ML syringe IV PRN ×2 (10:50)
[2022-01-10] MEDS ORDERED: morphine 4 MG/ML inj SYRINge IV PRN (10:50)
[2022-01-10] MEDS ORDERED: labetalol 20mg/4ml (5mg/ml) syringe IV PRN (10:50)
[2022-01-10] MEDS ORDERED: ondansetron/PF 4mg/2ml inj IV PRN (10:50)
[2022-01-10] MEDS ORDERED: morphine 2 MG/ML inj. syringe IV PRN (10:50)
[2022-01-10] MEDS ORDERED: BUPIVAcaine 0.5% inj/PF 30 ML ONE (11:33)
[2022-01-10] MEDS ORDERED: LIDOcaine 1% 30ml preserv. free vial ONE (11:33)
[2022-01-10] MEDS ORDERED: sevoflurane 250ml liquid IH ONE (11:45)
[2022-01-10] MEDS ORDERED: FENTANYL CITRATE/PF 50 MCG/1 ML VIAL ONE (11:46)
[2022-01-10] MEDS ORDERED: midazolam 1 mg/ML 2ml injection ONE (11:46)
[2022-01-10] MEDS ORDERED: propofol inj 20 ML IV ONE (12:01)
[2022-01-10] MEDS ORDERED: LIDOcaine 2% (20mg/ml) 5ml vial ONE (12:01)
[2022-01-10] MEDS ORDERED: glycopyrrolate 0.2mg/ml inj ONE (12:02)
[2022-01-10] MEDS ORDERED: neostigmine methylsulfate 1 MG/ML 10ml vial ONE (12:02)
[2022-01-10] MEDS ORDERED: rocuronium 10mg/ml inj IV ONE (12:02)
[2022-01-10] MEDS ORDERED: dexamethasone sod phosphate 4mg/ml inj. ONE (12:09)
[2022-01-10] MEDS ORDERED: BUPIVAcaine 0.5% inj/PF 30 ml vial IJ ONE (12:10)
[2022-01-10] MEDS ORDERED: ondansetron/PF 4mg/2ml inj ONE (12:11)
[2022-01-10 12:51] VITALS: BP 114/78
--- NOTE | 2022-01-10 12:51 | NUR ---
Received from OR via [facility] , accompanied by Anesthesiologist TOÑO and report given by Anesthesiolgist. PATIENT WITH 20G PIV IN LEFT UE RUNNING LR AT 100. VSS AT THSI TIME. MEDICATED FOR PAIN. Addendum: 01/10/22 at 1335 by Shashi Owens RN, RN Amended: Links added.
[2022-01-10 13:00] VITALS: BP 116/75
[2022-01-10] MEDS ORDERED: oxyCODONE/APAP 5-325mg tablet PO PRN (13:00)
[2022-01-10 13:10] VITALS: BP 119/74
[2022-01-10 13:20] VITALS: BP 114/76
--- NOTE | 2022-01-10 13:21 | NUR ---
ALL DC CRITERIA FOR TRANSFER HOME HAS BEEN MET AND VSS. DENIES NEED FOR FURTHER PAIN MEDS. AMBULATED TO BATHROOM INDEPENDENTLY AND VOIDED. PATIENT IV TAKEN OUT WITHOUT INCIDENT. UNDERSTOOD ALL DC INSTRUCTIONS AND TAKEN OUT VIA WHEELCHAIR TO PERSONAL VEHICLE WHERE SHE WAS TAKEN HOME BY HER FAMILY. Addendum: 01/10/22 at 1341 by Shashi Owens RN, RN Amended: Links added.
== END 2022-01-10 13:21 | disposition home or self-care (01) ==
LOC: PAS 09:48 → EEVIPCON 11:45 → PAS 13:21
PROVIDERS: ATTEND Surgery
DX: L76.34 Postprocedural seroma of skin and subcutaneous tissue following other procedure (principal); F17.210 Nicotine dependence, cigarettes, uncomplicated; G43.909 Migraine, unspecified, not intractable, without status migrainosus; F41.9 Anxiety disorder, unspecified; F32.A Depression, unspecified; F20.9 Schizophrenia, unspecified; J45.909 Unspecified asthma, uncomplicated; E66.9 Obesity, unspecified; Z68.34 Body mass index [BMI] 34.0-34.9, adult; Z98.890 Other specified postprocedural states; Z79.899 Other long term (current) drug therapy; Z20.822 Contact with and (suspected) exposure to COVID-19; Y83.8 Other surgical procedures as the cause of abnormal reaction of the patient, or of later complication, without mention of misadventure at the time of the procedure; Y92.89 Other specified places as the place of occurrence of the external cause
CPT/HCPCS: 10140; 36415; 80053; 82948; 84703; 85025; 87635; C9803; J1100; J2250; J2270; J2405; J2704; J2710; J3010; J3490; J7030; J7120; S0020; Z7506; Z7508; Z7512; A4215; A4618; A7000

== ENCOUNTER 2022-02-06 21:01 | Emergency (ER) | payer MEDICAID ==
[~2022-02-06] VITALS: Ht 167.6 cm; Wt 100.9 kg
[~2022-02-06 21:01] MED LIST changes: -cefazolin/dext.iso 2gm/50ml IV ONE; -famotidine 20mg tablet PO ONE; -ringers solution, lacted 1,000 ML IV SCH
--- NOTE | 2022-02-06 23:38 | NUR ---
Patient to CT
[2022-02-06 23:52] LABS: BASOPHILS # (AUTO) 0.1 X10'3 (0-0.2); BASOPHILS % (AUTO) 0.9 % (0-1); EOSINOPHILS # (AUTO) 0.4 X10'3 (0-0.9); EOSINOPHILS % (AUTO) 5.5 % (0-6); HEMOGLOBIN 11.8 g/dl (12.0-16.0); LYMPHOCYTES # (AUTO) 2.7 X10'3 (1.1-4.8); LYMPHOCYTES % (AUTO) 33.8 % (21-51); MEAN CORPUSCULAR HEMOGLOBIN 28.8 PG (27.0-31.0); MEAN CORPUSCULAR HGB CONC 32.8 g/dL (33.0-36.5); MEAN CORPUSCULAR VOLUME 87.8 FL (78-98); MEAN PLATELET VOLUME 6.8 FL (7.4-10.4); MONOCYTES # (AUTO) 0.5 X10'3 (0-0.9); MONOCYTES % (AUTO) 5.7 % (2-12); NEUTROPHILS # (AUTO) 4.3 X10'3 (1.8-7.7); NEUTROPHILS % (AUTO) 54.1 % (42-75); PLATELET COUNT 290 X10'3 (140-440); RED BLOOD COUNT 4.11 X10'6 (4.20-5.60); RED CELL DISTRIBUTION WIDTH 15.4 % (11.5-14.5); WHITE BLOOD COUNT 7.9 X10'3 (4.5-11.0)
[2022-02-07 00:08] LABS: ALANINE AMINOTRANSFERASE 22 U/L (12-78); ALBUMIN 2.7 G/DL (3.4-5.0); ALBUMIN/GLOBULIN RATIO 0.5 (1.1-1.5); ALKALINE PHOSPHATASE 92 IU/L (46-116); ANION GAP 4 (8-16); ASPARTATE AMINO TRANSFERASE 16 U/L (10-37); BILIRUBIN,TOTAL 0.1 MG/DL (0.1-1.0); BLOOD UREA NITROGEN 15 MG/DL (7-18); BUN/CREATININE RATIO 14.2 (6.6-38.0); CALCIUM 8.5 MG/DL (8.5-10.1); CHLORIDE 103 MMOL/L (99-107); CREATININE 1.06 MG/DL (0.40-0.90); GLUCOSE 92 MG/DL (70-104); POTASSIUM 3.1 MMOL/L (3.5-5.1); SODIUM 136 MMOL/L (135-145); TOTAL CARBON DIOXIDE 28.7 MMOL/L (24-32); TOTAL PROTEIN 7.7 G/DL (6.4-8.2); eGFR 73 ML/MIN
[2022-02-07 00:18] LABS: LIPASE 65 U/L (73-393)
[2022-02-07] MEDS ORDERED: morphine 4 MG/ML inj SYRINge IV ONE (00:20)
[2022-02-07] MEDS ORDERED: ondansetron/PF 4mg/2ml inj IV ONE (00:20)
[2022-02-07] MEDS ORDERED: levoTHYROXINE 75mcg tablet PO ONE (01:15)
[2022-02-07 01:21] VITALS: BP 126/82
== END 2022-02-07 01:25 | disposition left against medical advice (07) ==
LOC: EEVIPCON 21:02 → ER 21:02
DX: R55 Syncope and collapse (principal); E03.9 Hypothyroidism, unspecified; R10.84 Generalized abdominal pain; R19.7 Diarrhea, unspecified; G43.909 Migraine, unspecified, not intractable, without status migrainosus; E11.42 Type 2 diabetes mellitus with diabetic polyneuropathy; J45.909 Unspecified asthma, uncomplicated; G89.29 Other chronic pain; F41.9 Anxiety disorder, unspecified; F32.A Depression, unspecified; F20.9 Schizophrenia, unspecified; Z87.440 Personal history of urinary (tract) infections; Z90.89 Acquired absence of other organs; Z98.890 Other specified postprocedural states; Z56.0 Unemployment, unspecified; Z79.2 Long term (current) use of antibiotics; Z79.899 Other long term (current) drug therapy
CPT/HCPCS: 36415; 71045; 74176; 80053; 83605; 83690; 83880; 84443; 84484; 85025; 93005; 96374; 96375; 99285; J2270; J2405

== ENCOUNTER 2022-02-08 21:08 | Emergency (ER) | payer MEDICAID ==
[~2022-02-08] VITALS: Ht 167.6 cm; Wt 102.7 kg
[2022-02-08 21:22] VITALS: BP 139/93
[2022-02-08 21:43] LABS: CLARITY,URINE CLEAR (Clear); COLOR,URINE YELLOW (Yellow); GLUCOSE, URINE NEGATIVE (Neg); KETONES,URINE NEGATIVE (Neg); LEUKOCYTE ESTERASE ,URINE NEGATIVE (Neg); NITRITES, URINE NEGATIVE (Neg); OCCULT BLOOD,URINE NEGATIVE (Neg); PROTEIN,URINE NEGATIVE (Neg); UROBILINOGEN,URINE 0.2 E.U/dL (0.2-1.0)
[2022-02-08 21:44] LABS: URINE HCG NEGATIVE (NEG)
[2022-02-08 21:45] LABS: UA COLLECTION TYPE CLN CATCH MIDSTREAM
== END 2022-02-09 03:26 | disposition left against medical advice (07) ==
LOC: ER 21:09
DX: R10.9 Unspecified abdominal pain (principal); Z53.21 Procedure and treatment not carried out due to patient leaving prior to being seen by health care provider
CPT/HCPCS: 81003; 81025

== ENCOUNTER 2022-03-04 13:14 | Emergency (ER) | payer MEDICAID ==
[~2022-03-04] VITALS: Ht 167.6 cm; Wt 100.0 kg
[2022-03-04 13:47] LABS: BASOPHILS # (AUTO) 0.1 X10'3 (0-0.2); BASOPHILS % (AUTO) 0.7 % (0-1); EOSINOPHILS # (AUTO) 0.3 X10'3 (0-0.9); EOSINOPHILS % (AUTO) 3.8 % (0-6); HEMOGLOBIN 12.4 g/dl (12.0-16.0); LYMPHOCYTES # (AUTO) 3.4 X10'3 (1.1-4.8); LYMPHOCYTES % (AUTO) 43.3 % (21-51); MEAN CORPUSCULAR HEMOGLOBIN 29.4 PG (27.0-31.0); MEAN CORPUSCULAR HGB CONC 33.5 g/dL (33.0-36.5); MEAN CORPUSCULAR VOLUME 87.8 FL (78-98); MEAN PLATELET VOLUME 6.8 FL (7.4-10.4); MONOCYTES # (AUTO) 0.3 X10'3 (0-0.9); MONOCYTES % (AUTO) 3.4 % (2-12); NEUTROPHILS # (AUTO) 3.8 X10'3 (1.8-7.7); NEUTROPHILS % (AUTO) 48.8 % (42-75); PLATELET COUNT 258 X10'3 (140-440); RED BLOOD COUNT 4.22 X10'6 (4.20-5.60); RED CELL DISTRIBUTION WIDTH 15.8 % (11.5-14.5); WHITE BLOOD COUNT 7.7 X10'3 (4.5-11.0)
[2022-03-04 14:04] LABS: ALANINE AMINOTRANSFERASE 29 U/L (12-78); ALBUMIN 3.8 G/DL (3.4-5.0); ALKALINE PHOSPHATASE 111 IU/L (46-116); ANION GAP 12 (8-16); ASPARTATE AMINO TRANSFERASE 22 U/L (10-37); BILIRUBIN,TOTAL 0.1 MG/DL (0.1-1.0); BLOOD UREA NITROGEN 12 MG/DL (7-18); BUN/CREATININE RATIO 7.9 (6.6-38.0); CALCIUM 8.6 MG/DL (8.5-10.1); CHLORIDE 102 MMOL/L (99-107); CREATININE 1.51 MG/DL (0.40-0.90); GLUCOSE 141 MG/DL (70-104); LIPASE 88 U/L (73-393); POTASSIUM 3.5 MMOL/L (3.5-5.1); SODIUM 134 MMOL/L (135-145); TOTAL CARBON DIOXIDE 19.9 MMOL/L (24-32); TOTAL PROTEIN 7.5 G/DL (6.4-8.2); eGFR 49 ML/MIN
[2022-03-04] MEDS ORDERED: sucralfate 1 gm tablet PO ONE (15:05)
[2022-03-04] MEDS ORDERED: LIDOcaine Viscous 15ml cup MM ONE (15:05)
[2022-03-04] MEDS ORDERED: ondansetron 4mg rapidly disintigrating tab PO ONE (15:05)
[2022-03-04] MEDS ORDERED: mag hydrox/Alum hydrox/simeth 30ml oral suspension PO ONE (15:05)
[2022-03-04 15:46] LABS: UA COLLECTION TYPE CLN CATCH MIDSTREAM
[2022-03-04 15:47] LABS: CLARITY,URINE CLEAR (Clear); COLOR,URINE YELLOW (Yellow); GLUCOSE, URINE NEGATIVE (Neg); KETONES,URINE NEGATIVE (Neg); LEUKOCYTE ESTERASE ,URINE NEGATIVE (Neg); NITRITES, URINE NEGATIVE (Neg); OCCULT BLOOD,URINE NEGATIVE (Neg); PROTEIN,URINE NEGATIVE (Neg); URINE HCG NEGATIVE (NEG); UROBILINOGEN,URINE 0.2 E.U/dL (0.2-1.0)
[2022-03-04 15:54] LABS: D-DIMER < 0.19 MG/L FEU (0-0.50)
[2022-03-04] MEDS ORDERED: HYDROcodone/acetaminophen 10/325mg tab PO ONE (16:15)
[2022-03-04] MEDS ORDERED: ketorolac trometh inj. 60 MG/2 ML VIAL IM ONE (16:15)
[2022-03-04] MEDS ORDERED: SUCR1TAB34 PO (16:16)
[2022-03-04 16:30] VITALS: BP 136/76
== END 2022-03-04 16:31 | disposition home or self-care (01) ==
LOC: ER 13:15
DX: R10.84 Generalized abdominal pain (principal); R19.7 Diarrhea, unspecified; R55 Syncope and collapse; R33.9 Retention of urine, unspecified; G43.909 Migraine, unspecified, not intractable, without status migrainosus; J44.9 Chronic obstructive pulmonary disease, unspecified; E11.42 Type 2 diabetes mellitus with diabetic polyneuropathy; G89.29 Other chronic pain; F41.9 Anxiety disorder, unspecified; F32.9 Major depressive disorder, single episode, unspecified; F20.9 Schizophrenia, unspecified; F12.90 Cannabis use, unspecified, uncomplicated; F17.200 Nicotine dependence, unspecified, uncomplicated; E05.90 Thyrotoxicosis, unspecified without thyrotoxic crisis or storm; Z98.890 Other specified postprocedural states; Z90.49 Acquired absence of other specified parts of digestive tract; Z56.0 Unemployment, unspecified; Z79.899 Other long term (current) drug therapy
CPT/HCPCS: 36415; 80053; 81003; 81025; 82948; 83690; 85025; 85379; 93005; 96372; 99284; J1885

== ENCOUNTER 2022-03-16 23:58 | Emergency (ER) | payer MEDICAID ==
[~2022-03-16] VITALS: Ht 167.6 cm; Wt 107.3 kg
[~2022-03-16 23:58] MED LIST changes: +SUCR1TAB34 PO
[2022-03-17 00:50] VITALS: BP 112/70
[2022-03-17] MEDS ORDERED: ACET-1025 PO (03:35)
[2022-03-17] MEDS ORDERED: acetaminophen 325mg tablet PO ONE (03:35)
--- NOTE | 2022-03-17 03:45 | NUR ---
Patient eloped off unit without receiving Tylenol or discharge paperwork.
== END 2022-03-17 03:47 | disposition left against medical advice (07) ==
LOC: ER 23:58
DX: M54.59 Other low back pain (principal); J44.9 Chronic obstructive pulmonary disease, unspecified; G43.909 Migraine, unspecified, not intractable, without status migrainosus; G89.29 Other chronic pain; F41.9 Anxiety disorder, unspecified; F32.A Depression, unspecified; F20.9 Schizophrenia, unspecified; F12.10 Cannabis abuse, uncomplicated; Z79.899 Other long term (current) drug therapy
CPT/HCPCS: 99282

== ENCOUNTER 2022-04-06 16:38 | Emergency (ER) | payer MEDICAID ==
[~2022-04-06] VITALS: Ht 167.6 cm; Wt 96.4 kg
[~2022-04-06 16:38] MED LIST changes: +ACET-1025 PO
[2022-04-06 19:24] LABS: BASOPHILS # (AUTO) 0.1 X10'3 (0-0.2); EOSINOPHILS # (AUTO) 0.5 X10'3 (0-0.9); EOSINOPHILS % (AUTO) 6.3 % (0-6); HEMATOCRIT 41.6 % (35.0-45.0); HEMOGLOBIN 13.9 g/dl (12.0-16.0); LYMPHOCYTES # (AUTO) 4.1 X10'3 (1.1-4.8); LYMPHOCYTES % (AUTO) 47.4 % (21-51); MEAN CORPUSCULAR HEMOGLOBIN 29.1 PG (27.0-31.0); MEAN CORPUSCULAR HGB CONC 33.4 g/dL (33.0-36.5); MEAN CORPUSCULAR VOLUME 87.3 FL (78-98); MEAN PLATELET VOLUME 6.9 FL (7.4-10.4); MONOCYTES # (AUTO) 0.3 X10'3 (0-0.9); MONOCYTES % (AUTO) 3.9 % (2-12); NEUTROPHILS # (AUTO) 3.5 X10'3 (1.8-7.7); NEUTROPHILS % (AUTO) 41.4 % (42-75); PLATELET COUNT 320 X10'3 (140-440); RED BLOOD COUNT 4.76 X10'6 (4.20-5.60); RED CELL DISTRIBUTION WIDTH 16.4 % (11.5-14.5); WHITE BLOOD COUNT 8.6 X10'3 (4.5-11.0)
[2022-04-06 19:38] LABS: ALANINE AMINOTRANSFERASE 23 U/L (12-78); ALBUMIN 4.7 G/DL (3.4-5.0); ALBUMIN/GLOBULIN RATIO 1.1 (1.1-1.5); ALKALINE PHOSPHATASE 101 IU/L (46-116); ANION GAP 5 (8-16); ASPARTATE AMINO TRANSFERASE 25 U/L (10-37); BILIRUBIN,TOTAL 0.3 MG/DL (0.1-1.0); BLOOD UREA NITROGEN 13 MG/DL (7-18); BUN/CREATININE RATIO 9.8 (6.6-38.0); CALCIUM 9.2 MG/DL (8.5-10.1); CHLORIDE 98 MMOL/L (99-107); CREATININE 1.32 MG/DL (0.40-0.90); GLUCOSE 98 MG/DL (70-104); POTASSIUM 3.3 MMOL/L (3.5-5.1); SODIUM 134 MMOL/L (135-145); TOTAL CARBON DIOXIDE 31.1 MMOL/L (24-32); TOTAL PROTEIN 9.1 G/DL (6.4-8.2); eGFR 57 ML/MIN
[2022-04-06] MEDS ORDERED: normal saline 1000ml 1,000 ML IV ONE (21:10)
[2022-04-07] MEDS ORDERED: acetaminophen 325mg tablet PO ONE (00:45)
--- NOTE | 2022-04-07 01:06 | NUR ---
PT TO CT
[2022-04-07] MEDS ORDERED: ipratropium 0.5 MG/2.5ML nebule IH ONE (01:15)
[2022-04-07] MEDS ORDERED: albuterol 2.5 MG/3 ML nebule NEB ONE (01:15)
--- NOTE | 2022-04-07 01:31 | NUR ---
PT COMPLAINING OF SOB AFTER CT SCAN. MD AT BEDSIDE. EKG DONE. RT AT BEDSIDE PROVIDING BREATHING TREATMENT. PT IS ABLE TO EAT AND IS LAUGHING WITH HER FRIEND WHO IS VISITING
[2022-04-07] MEDS ORDERED: ketorolac tromethamine 15mg/ml inj. IV ONE (02:00)
--- NOTE | 2022-04-07 02:00 | NUR ---
PT STATES SHE IS FEELING MUCH BETTER AFTER BREATHING TREATMENT AND IS REQUESTING PAIN MEDICATION FOR CHRONIC ABDOMINAL PAIN. GAB MEZA GAVE VERBAL ORDER FOR 15 MG TORADOL IV
[2022-04-07] MEDS ORDERED: POTASSIUM BICARB 20meq eff tab 20 MEQ TABLET.EFF PO SCH (02:20)
[2022-04-07] MEDS ORDERED: levoTHYROXINE 75mcg tablet PO SCH (02:25)
[2022-04-07 02:40] VITALS: BP 134/86
[2022-04-07 03:16] LABS: CLARITY,URINE CLEAR (Clear); COLOR,URINE YELLOW (Yellow); GLUCOSE, URINE NEGATIVE (Neg); KETONES,URINE NEGATIVE (Neg); LEUKOCYTE ESTERASE ,URINE NEGATIVE (Neg); NITRITES, URINE NEGATIVE (Neg); OCCULT BLOOD,URINE NEGATIVE (Neg); PH,URINE 6.5 (4.8-8.0); PROTEIN,URINE NEGATIVE (Neg); UROBILINOGEN,URINE 0.2 E.U/dL (0.2-1.0)
[2022-04-07 03:19] LABS: UA COLLECTION TYPE NON-SPECIFIED
== END 2022-04-07 03:09 | disposition home or self-care (01) ==
LOC: ER 16:39
DX: R55 Syncope and collapse (principal); R10.9 Unspecified abdominal pain; R07.89 Other chest pain; E03.9 Hypothyroidism, unspecified; G93.0 Cerebral cysts; G43.909 Migraine, unspecified, not intractable, without status migrainosus; J44.9 Chronic obstructive pulmonary disease, unspecified; E11.9 Type 2 diabetes mellitus without complications; G89.29 Other chronic pain; M54.50 Low back pain, unspecified; F12.90 Cannabis use, unspecified, uncomplicated; Z56.0 Unemployment, unspecified
CPT/HCPCS: 36415; 70496; 70498; 71045; 71275; 74018; 80053; 81003; 82948; 83880; 84443; 84484; 85025; 93005; 94640; 96374; 99285; J1885; J3490; J7030; 94760

== ENCOUNTER 2022-06-01 15:51 | Emergency (ER) | payer MEDICAID ==
[~2022-06-01] VITALS: Ht 167.6 cm; Wt 85.0 kg
[~2022-06-01 15:51] MED LIST changes: -ACET-1025 PO; -CHLO50TA24 PO; +CHLO50TA52 PO
[2022-06-01 16:39] VITALS: BP 115/75
[2022-06-01 18:52] LABS: BASOPHILS # (AUTO) 0.1 X10'3 (0-0.2); EOSINOPHILS # (AUTO) 0.4 X10'3 (0-0.9); MEAN CORPUSCULAR VOLUME 90.4 FL (78-98); MONOCYTES # (AUTO) 0.6 X10'3 (0-0.9); WHITE BLOOD COUNT 9.5 X10'3 (4.5-11.0)
[2022-06-01 18:55] LABS: BASOPHILS % (AUTO) 0.9 % (0-1); EOSINOPHILS % (AUTO) 4.7 % (0-6); HEMATOCRIT 39.8 % (35.0-45.0); HEMOGLOBIN 13.6 g/dl (12.0-16.0); LYMPHOCYTES # (AUTO) 3.8 X10'3 (1.1-4.8); LYMPHOCYTES % (AUTO) 39.9 % (21-51); MEAN CORPUSCULAR HEMOGLOBIN 30.8 PG (27.0-31.0); MEAN CORPUSCULAR HGB CONC 34.1 g/dL (33.0-36.5); MEAN PLATELET VOLUME 7.7 FL (7.4-10.4); NEUTROPHILS # (AUTO) 4.6 X10'3 (1.8-7.7); NEUTROPHILS % (AUTO) 48.5 % (42-75); PLATELET COUNT 309 X10'3 (140-440); RED BLOOD COUNT 4.41 X10'6 (4.20-5.60); RED CELL DISTRIBUTION WIDTH 16.2 % (11.5-14.5)
[2022-06-01 19:06] LABS: ALANINE AMINOTRANSFERASE 32 U/L (12-78); ALBUMIN 4.6 G/DL (3.4-5.0); ALBUMIN/GLOBULIN RATIO 1.2 (1.1-1.5); ALKALINE PHOSPHATASE 104 IU/L (46-116); ANION GAP 13 (8-16); ASPARTATE AMINO TRANSFERASE 21 U/L (10-37); BILIRUBIN,TOTAL 0.2 MG/DL (0.1-1.0); BLOOD UREA NITROGEN 12 MG/DL (7-18); BUN/CREATININE RATIO 14.5 (6.6-38.0); CALCIUM 8.6 MG/DL (8.5-10.1); CHLORIDE 100 MMOL/L (99-107); CREATININE 0.83 MG/DL (0.40-0.90); GLUCOSE 103 MG/DL (70-104); LIPASE 66 U/L (73-393); POTASSIUM 4.1 MMOL/L (3.5-5.1); SODIUM 140 MMOL/L (135-145); TOTAL CARBON DIOXIDE 26.8 MMOL/L (24-32); TOTAL PROTEIN 8.5 G/DL (6.4-8.2); eGFR > 90 ML/MIN
== END 2022-06-01 20:32 | disposition left against medical advice (07) ==
LOC: ER 15:52
DX: R10.9 Unspecified abdominal pain (principal); Z53.21 Procedure and treatment not carried out due to patient leaving prior to being seen by health care provider; R42 Dizziness and giddiness
CPT/HCPCS: 74176; 80053; 83690; 85025; 93005

== ENCOUNTER 2022-06-13 09:45 | Emergency (ER) | payer MEDICAID ==
[~2022-06-13] VITALS: Ht 167.6 cm; Wt 104.5 kg
[2022-06-13 10:01] VITALS: BP 113/77
--- NOTE | 2022-06-13 10:01 | NUR ---
AWAITING MD, CALL LIGHT WITHIN REACH.
[2022-06-13] MEDS ORDERED: OXYC-145 PO (10:29)
[2022-06-13] MEDS ORDERED: NAPR-56 PO (10:29)
[2022-06-13] MEDS ORDERED: oxyCODONE/APAP 5-325mg tablet PO ONE (10:30)
== END 2022-06-13 10:53 | disposition home or self-care (01) ==
LOC: ER 09:45
DX: K43.9 Ventral hernia without obstruction or gangrene (principal); G43.909 Migraine, unspecified, not intractable, without status migrainosus; E11.42 Type 2 diabetes mellitus with diabetic polyneuropathy; J44.9 Chronic obstructive pulmonary disease, unspecified; E05.90 Thyrotoxicosis, unspecified without thyrotoxic crisis or storm; G89.29 Other chronic pain; F41.9 Anxiety disorder, unspecified; F32.A Depression, unspecified; F20.9 Schizophrenia, unspecified; F12.90 Cannabis use, unspecified, uncomplicated; Z87.440 Personal history of urinary (tract) infections; Z90.89 Acquired absence of other organs; Z98.890 Other specified postprocedural states; Z56.0 Unemployment, unspecified; Z79.2 Long term (current) use of antibiotics; Z79.899 Other long term (current) drug therapy
CPT/HCPCS: 99283

== ENCOUNTER 2022-07-03 11:43 | Emergency (ER) | payer MEDICAID ==
[~2022-07-03] VITALS: Ht 167.6 cm; Wt 102.0 kg
[~2022-07-03 11:43] MED LIST changes: +NAPR-56 PO; +OXYC-145 PO
[2022-07-03 13:30] LABS: APTT 25 SECONDS (22-32)
[2022-07-03] MEDS ORDERED: HYDROmorphone inj. 0.5 MG/0.5 ML DISP.SYRIN IV ONE (15:20)
[2022-07-03 15:46] LABS: EOSINOPHILS # (AUTO) 0.2 X10'3 (0-0.9); MEAN PLATELET VOLUME 6.7 FL (7.4-10.4)
[2022-07-03 15:47] LABS: BASOPHILS % (AUTO) 0.4 % (0-1); EOSINOPHILS % (AUTO) 4.3 % (0-6); HEMATOCRIT 36.2 % (35.0-45.0); LYMPHOCYTES % (AUTO) 36.6 % (21-51); MEAN CORPUSCULAR HEMOGLOBIN 29.9 PG (27.0-31.0); MEAN CORPUSCULAR HGB CONC 33.1 g/dL (33.0-36.5); MEAN CORPUSCULAR VOLUME 90.3 FL (78-98); MONOCYTES # (AUTO) 0.2 X10'3 (0-0.9); MONOCYTES % (AUTO) 3.8 % (2-12); NEUTROPHILS % (AUTO) 54.9 % (42-75); PLATELET COUNT 272 X10'3 (140-440); RED BLOOD COUNT 4.01 X10'6 (4.20-5.60); WHITE BLOOD COUNT 5.4 X10'3 (4.5-11.0)
[2022-07-03 15:57] LABS: ALANINE AMINOTRANSFERASE 27 U/L (12-78); ALBUMIN 3.2 G/DL (3.4-5.0); ALBUMIN/GLOBULIN RATIO 0.9 (1.1-1.5); ALKALINE PHOSPHATASE 95 IU/L (46-116); ANION GAP 10 (8-16); ASPARTATE AMINO TRANSFERASE 23 U/L (10-37); BILIRUBIN,TOTAL 0.2 MG/DL (0.1-1.0); BLOOD UREA NITROGEN 5 MG/DL (7-18); BUN/CREATININE RATIO 7.4 (6.6-38.0); CALCIUM 7.6 MG/DL (8.5-10.1); CHLORIDE 103 MMOL/L (99-107); CREATININE 0.68 MG/DL (0.40-0.90); GLUCOSE 98 MG/DL (70-104); POTASSIUM 3.1 MMOL/L (3.5-5.1); SODIUM 140 MMOL/L (135-145); TOTAL CARBON DIOXIDE 27.5 MMOL/L (24-32); TOTAL PROTEIN 6.8 G/DL (6.4-8.2); eGFR > 90 ML/MIN
[2022-07-03 16:00] VITALS: BP 137/85
[2022-07-03] MEDS ORDERED: ketorolac trometh. 30mg/ml inj. IV ONE (16:00)
[2022-07-03] MEDS ORDERED: diphenhydrAMINE 50 mg/ml inj IV ONE (16:00)
[2022-07-03] MEDS ORDERED: proCHLORperazine 10 MG/2 ml inj IV ONE (16:00)
[2022-07-03] MEDS ORDERED: ringers solution, lactated 500ml IV solution IV ONE (16:05)
--- NOTE | 2022-07-03 16:15 | NUR ---
Pt refused V/S Q15. Pt is not compliant with stroke protocal stating she does not have a stroke
[2022-07-03] MEDS ORDERED: iohexol 350MG/ML 100ml bottle IV ONE (16:24)
[2022-07-03] MEDS ORDERED: HYALURONIDASE SQ ONE (16:55)
[2022-07-03] MEDS ORDERED: [UNRECOGNIZED DRUG - OTHER] SQ ONE (16:55)
--- NOTE | 2022-07-03 17:30 | NUR ---
Pt insisted on going AMA after having received medical intervention. Neurologist advised that headaches are more like complex migrain vs pressure caused by hydrocephalus, ED provider prescribed migraine cocktain, dilaudid is not recommended for migrain pain. RN provided education on migraine management, removed IV catheters. Pt ambulated by self with steady gait
== END 2022-07-03 17:30 | disposition left against medical advice (07) ==
LOC: ER 11:44
DX: R07.9 Chest pain, unspecified (principal); H02.421 Myogenic ptosis of right eyelid; R51.9 Headache, unspecified; G91.9 Hydrocephalus, unspecified
CPT/HCPCS: 36415; 70450; 71045; 80053; 82948; 84484; 85025; 85610; 85730; 93005; 96374; 96375; 99285; J0780; J1200; J1885; Q9967; 72148; 73721

== ENCOUNTER 2022-07-24 09:55 | Emergency (ER) | payer MEDICAID ==
[~2022-07-24] VITALS: Ht 160 cm; Wt 90.0 kg
[2022-07-24] MEDS ORDERED: diphenhydrAMINE 50 mg/ml inj IV ONE (11:05)
[2022-07-24] MEDS ORDERED: proCHLORperazine 10 MG/2 ml inj IV ONE (11:05)
[2022-07-24] MEDS ORDERED: ketorolac trometh. 30mg/ml inj. IV ONE (11:05)
[2022-07-24] MEDS ORDERED: diazepam inj 5 MG/ML inj. IV ONE (13:30)
[2022-07-24 15:03] VITALS: BP 119/72
[2022-07-24] MEDS ORDERED: diazepam 5mg tablet PO ONE (15:20)
== END 2022-07-24 15:32 | disposition home or self-care (01) ==
LOC: ER 09:55
DX: R51.9 Headache, unspecified (principal); G89.29 Other chronic pain; G91.9 Hydrocephalus, unspecified; J44.9 Chronic obstructive pulmonary disease, unspecified; M54.59 Other low back pain; F31.9 Bipolar disorder, unspecified; F20.9 Schizophrenia, unspecified; E07.9 Disorder of thyroid, unspecified; Z79.899 Other long term (current) drug therapy
CPT/HCPCS: 70450; 96374; 96375; 99284; J0780; J1200; J1885; J3360

== ENCOUNTER 2022-07-25 11:46 | Emergency (ER) | payer MEDICAID ==
[~2022-07-25] VITALS: Ht 167.6 cm; Wt 103.0 kg
[2022-07-25 12:11] VITALS: BP 136/77
[2022-07-25] MEDS ORDERED: ketorolac trometh inj. 60 MG/2 ML VIAL IM ONE (13:00)
[2022-07-25] MEDS ORDERED: diphenhydrAMINE 25mg capsule PO ONE (13:00)
[2022-07-25] MEDS ORDERED: acetaminophen 325mg tablet PO ONE (13:00)
[2022-07-25] MEDS ORDERED: proCHLORperazine 10 MG/2 ml inj IM ONE (13:00)
[2022-07-25] MEDS ORDERED: diazepam 5mg tablet PO ONE (13:00)
== END 2022-07-25 13:47 | disposition home or self-care (01) ==
LOC: ER 11:46
DX: R51.9 Headache, unspecified (principal); Z76.0 Encounter for issue of repeat prescription; J44.9 Chronic obstructive pulmonary disease, unspecified; E11.9 Type 2 diabetes mellitus without complications; E03.9 Hypothyroidism, unspecified; G89.29 Other chronic pain; M54.9 Dorsalgia, unspecified; F31.9 Bipolar disorder, unspecified; F20.9 Schizophrenia, unspecified; G43.909 Migraine, unspecified, not intractable, without status migrainosus; F12.10 Cannabis abuse, uncomplicated; Z88.5 Allergy status to narcotic agent; Z79.899 Other long term (current) drug therapy; Z79.1 Long term (current) use of non-steroidal anti-inflammatories (NSAID); Z79.2 Long term (current) use of antibiotics
CPT/HCPCS: 96372; 99284; J0780; J1885; Q0163

== ENCOUNTER 2022-07-31 12:07 | Emergency (ER) | payer MEDICAID ==
[~2022-07-31] VITALS: Ht 167.6 cm; Wt 101.0 kg
[~2022-07-31 12:07] MED LIST changes: +QUET-28 PO; -QUET200T84 PO
[2022-07-31 12:10] VITALS: BP 124/83
[2022-07-31] MEDS ORDERED: HYDROcodone/acetaminophen 10/325mg tab PO ONE (13:20)
[2022-07-31] MEDS ORDERED: HYDR-3972 PO (13:54)
== END 2022-07-31 14:23 | disposition home or self-care (01) ==
LOC: ER 12:08
DX: M25.462 Effusion, left knee (principal); M25.562 Pain in left knee; I11.9 Hypertensive heart disease without heart failure; J44.9 Chronic obstructive pulmonary disease, unspecified; E11.9 Type 2 diabetes mellitus without complications; G89.29 Other chronic pain; M54.9 Dorsalgia, unspecified; F31.9 Bipolar disorder, unspecified; F20.9 Schizophrenia, unspecified; F12.10 Cannabis abuse, uncomplicated; G43.909 Migraine, unspecified, not intractable, without status migrainosus; Z79.899 Other long term (current) drug therapy; Z90.49 Acquired absence of other specified parts of digestive tract; W19.XXXA Unspecified fall, initial encounter; Y93.89 Activity, other specified; Y92.89 Other specified places as the place of occurrence of the external cause; Y99.8 Other external cause status
CPT/HCPCS: 73564; 99283

== ENCOUNTER 2022-08-14 14:18 | Emergency (ER) | payer MEDICAID ==
[~2022-08-14] VITALS: Ht 167.6 cm; Wt 100.7 kg
[~2022-08-14 14:18] MED LIST changes: +HYDR-3972 PO
[2022-08-14 14:44] VITALS: BP 132/81
[2022-08-14] MEDS ORDERED: IBUP-1986 PO (15:19)
[2022-08-14] MEDS ORDERED: ketorolac trometh. 30mg/ml inj. IM ONE (15:20)
== END 2022-08-14 16:05 | disposition home or self-care (01) ==
LOC: ER 14:19
DX: S93.401A Sprain of unspecified ligament of right ankle, initial encounter (principal); G43.909 Migraine, unspecified, not intractable, without status migrainosus; J44.9 Chronic obstructive pulmonary disease, unspecified; E11.9 Type 2 diabetes mellitus without complications; G89.29 Other chronic pain; M54.50 Low back pain, unspecified; F12.90 Cannabis use, unspecified, uncomplicated; Z88.5 Allergy status to narcotic agent; Z98.890 Other specified postprocedural states; Z56.0 Unemployment, unspecified; W01.0XXA Fall on same level from slipping, tripping and stumbling without subsequent striking against object, initial encounter; Y93.89 Activity, other specified; Y92.89 Other specified places as the place of occurrence of the external cause; Y99.8 Other external cause status
CPT/HCPCS: 73610; 96372; 99283; J1885; L1930

== ENCOUNTER 2022-08-21 14:36 | Emergency (ER) | payer MEDICAID ==
[~2022-08-21] VITALS: Ht 167.6 cm; Wt 101.0 kg
[~2022-08-21 14:36] MED LIST changes: +IBUP-1986 PO
[2022-08-21 14:47] VITALS: BP 141/83
== END 2022-08-21 17:17 | disposition left against medical advice (07) ==
LOC: ER 14:36
DX: L02.416 Cutaneous abscess of left lower limb (principal); Z53.21 Procedure and treatment not carried out due to patient leaving prior to being seen by health care provider

== ENCOUNTER 2022-08-23 11:00 | Emergency (ER) | payer MEDICAID ==
[~2022-08-23] VITALS: Ht 167.6 cm; Wt 100.0 kg
[2022-08-23 11:17] VITALS: BP 131/83
[2022-08-23] MEDS ORDERED: ketorolac trometh inj. 60 MG/2 ML VIAL IM ONE (14:10)
[2022-08-23] MEDS ORDERED: cephalexin 250mg capsule PO ONE (14:10)
[2022-08-23] MEDS ORDERED: CEPH-585 PO (14:14)
== END 2022-08-23 14:38 | disposition home or self-care (01) ==
LOC: ER 11:01
DX: S31.40XA Unspecified open wound of vagina and vulva, initial encounter (principal); G43.909 Migraine, unspecified, not intractable, without status migrainosus; J44.9 Chronic obstructive pulmonary disease, unspecified; E11.9 Type 2 diabetes mellitus without complications; G89.29 Other chronic pain; M54.50 Low back pain, unspecified; Z88.5 Allergy status to narcotic agent; Z98.890 Other specified postprocedural states; Z56.0 Unemployment, unspecified; X58.XXXA Exposure to other specified factors, initial encounter; Y93.89 Activity, other specified; Y92.89 Other specified places as the place of occurrence of the external cause; Y99.8 Other external cause status
CPT/HCPCS: 96372; 99283; J1885

== ENCOUNTER 2022-09-01 23:38 | Emergency (ER) | payer MEDICAID ==
[~2022-09-01] VITALS: Ht 167.6 cm; Wt 100.9 kg
[~2022-09-01 23:38] MED LIST changes: +CEPH-585 PO
[2022-09-02 00:24] VITALS: BP 121/82
[2022-09-02 01:19] LABS: BASOPHILS % (AUTO) 0.6 % (0-1); EOSINOPHILS # (AUTO) 0.2 X10'3 (0-0.9); EOSINOPHILS % (AUTO) 3.5 % (0-6); HEMATOCRIT 40.9 % (35.0-45.0); HEMOGLOBIN 13.7 g/dl (12.0-16.0); LYMPHOCYTES # (AUTO) 3.3 X10'3 (1.1-4.8); LYMPHOCYTES % (AUTO) 47.2 % (21-51); MEAN CORPUSCULAR HEMOGLOBIN 29.2 PG (27.0-31.0); MEAN CORPUSCULAR HGB CONC 33.5 g/dL (33.0-36.5); MEAN CORPUSCULAR VOLUME 87.1 FL (78-98); MEAN PLATELET VOLUME 6.7 FL (7.4-10.4); MONOCYTES # (AUTO) 0.3 X10'3 (0-0.9); NEUTROPHILS # (AUTO) 3.1 X10'3 (1.8-7.7); NEUTROPHILS % (AUTO) 44.7 % (42-75); PLATELET COUNT 319 X10'3 (140-440); RED CELL DISTRIBUTION WIDTH 14.6 % (11.5-14.5); WHITE BLOOD COUNT 6.9 X10'3 (4.5-11.0)
[2022-09-02 01:40] LABS: ALANINE AMINOTRANSFERASE 27 U/L (12-78); ALBUMIN 3.8 G/DL (3.4-5.0); ALBUMIN/GLOBULIN RATIO 0.9 (1.1-1.5); ALKALINE PHOSPHATASE 109 IU/L (46-116); ANION GAP 8 (8-16); ASPARTATE AMINO TRANSFERASE 27 U/L (10-37); BILIRUBIN,TOTAL 0.2 MG/DL (0.1-1.0); BLOOD UREA NITROGEN 8 MG/DL (7-18); BUN/CREATININE RATIO 9.5 (6.6-38.0); CALCIUM 8.5 MG/DL (8.5-10.1); CHLORIDE 105 MMOL/L (99-107); CREATININE 0.84 MG/DL (0.40-0.90); GLUCOSE 87 MG/DL (70-104); SODIUM 140 MMOL/L (135-145); TOTAL CARBON DIOXIDE 27.5 MMOL/L (24-32); eGFR > 90 ML/MIN
[2022-09-02 01:45] LABS: POTASSIUM 2.9 MMOL/L (3.5-5.1)
[2022-09-02] MEDS ORDERED: POTASSIUM BICARB 20meq eff tab 20 MEQ TABLET.EFF PO STA (01:45)
== END 2022-09-02 04:58 | disposition left against medical advice (07) ==
LOC: ER 23:39
DX: R07.9 Chest pain, unspecified (principal); Z53.21 Procedure and treatment not carried out due to patient leaving prior to being seen by health care provider
CPT/HCPCS: 36415; 71045; 80053; 83880; 84484; 85025; 93005

== ENCOUNTER 2022-09-03 01:56 | Emergency (ER) | payer MEDICAID ==
[~2022-09-03] VITALS: Ht 167.6 cm; Wt 100.9 kg
[~2022-09-03 01:56] MED LIST changes: -HYDR-3972 PO
[2022-09-03 02:01] VITALS: BP 149/77
== END 2022-09-03 03:44 | disposition left against medical advice (07) ==
LOC: ER 01:57
DX: M79.605 Pain in left leg (principal); Z53.21 Procedure and treatment not carried out due to patient leaving prior to being seen by health care provider

== ENCOUNTER 2022-09-03 19:38 | Emergency (ER) | payer MEDICAID ==
[~2022-09-03] VITALS: Ht 167.6 cm; Wt 100.9 kg
[2022-09-03 20:09] LABS: BASOPHILS # (AUTO) 0.1 X10'3 (0-0.2); BASOPHILS % (AUTO) 0.7 % (0-1); EOSINOPHILS # (AUTO) 0.2 X10'3 (0-0.9); EOSINOPHILS % (AUTO) 2.5 % (0-6); HEMATOCRIT 39.3 % (35.0-45.0); HEMOGLOBIN 13.3 g/dl (12.0-16.0); LYMPHOCYTES # (AUTO) 3.3 X10'3 (1.1-4.8); LYMPHOCYTES % (AUTO) 46.7 % (21-51); MEAN CORPUSCULAR HEMOGLOBIN 29.3 PG (27.0-31.0); MEAN CORPUSCULAR HGB CONC 33.8 g/dL (33.0-36.5); MEAN CORPUSCULAR VOLUME 86.8 FL (78-98); MEAN PLATELET VOLUME 6.9 FL (7.4-10.4); MONOCYTES # (AUTO) 0.3 X10'3 (0-0.9); MONOCYTES % (AUTO) 3.7 % (2-12); NEUTROPHILS # (AUTO) 3.3 X10'3 (1.8-7.7); NEUTROPHILS % (AUTO) 46.4 % (42-75); PLATELET COUNT 283 X10'3 (140-440); RED BLOOD COUNT 4.53 X10'6 (4.20-5.60); RED CELL DISTRIBUTION WIDTH 14.8 % (11.5-14.5); WHITE BLOOD COUNT 7.1 X10'3 (4.5-11.0)
[2022-09-03 20:27] VITALS: BP 128/80
[2022-09-03 20:27] LABS: ALANINE AMINOTRANSFERASE 27 U/L (12-78); ALBUMIN 3.8 G/DL (3.4-5.0); ALKALINE PHOSPHATASE 116 IU/L (46-116); ANION GAP 8 (8-16); ASPARTATE AMINO TRANSFERASE 23 U/L (10-37); BILIRUBIN,TOTAL 0.2 MG/DL (0.1-1.0); BLOOD UREA NITROGEN 11 MG/DL (7-18); BUN/CREATININE RATIO 11.8 (6.6-38.0); CALCIUM 8.6 MG/DL (8.5-10.1); CHLORIDE 102 MMOL/L (99-107); CREATININE 0.93 MG/DL (0.40-0.90); GLUCOSE 123 MG/DL (70-104); POTASSIUM 3.3 MMOL/L (3.5-5.1); SODIUM 136 MMOL/L (135-145); TOTAL CARBON DIOXIDE 25.9 MMOL/L (24-32); TOTAL PROTEIN 7.7 G/DL (6.4-8.2); eGFR 85 ML/MIN
[2022-09-03] MEDS ORDERED: POTASSIUM BICARB 20meq eff tab 20 MEQ TABLET.EFF PO SCH (22:55)
[2022-09-04] MEDS ORDERED: acetaminophen 325mg tablet PO ONE (01:40)
== END 2022-09-04 02:01 | disposition home or self-care (01) ==
LOC: ER 19:39
DX: S70.12XA Contusion of left thigh, initial encounter (principal); E87.6 Hypokalemia; X58.XXXA Exposure to other specified factors, initial encounter; Y93.89 Activity, other specified; Y92.89 Other specified places as the place of occurrence of the external cause; Y99.8 Other external cause status; J44.9 Chronic obstructive pulmonary disease, unspecified; E11.9 Type 2 diabetes mellitus without complications; G89.29 Other chronic pain; M54.9 Dorsalgia, unspecified; F31.9 Bipolar disorder, unspecified; F20.9 Schizophrenia, unspecified
CPT/HCPCS: 36415; 71045; 80053; 83735; 83880; 84484; 85025; 93005; 93971; 99285

== ENCOUNTER 2022-09-19 12:18 | Emergency (ER) | payer MEDICAID ==
[~2022-09-19] VITALS: Ht 167.6 cm; Wt 99.1 kg
[2022-09-19 12:53] VITALS: BP 106/80
[2022-09-19] MEDS ORDERED: LIDOcaine 1% W/epiNEPHrine 1:100,000 20ml vial SQ ONE (14:15)
[2022-09-19] MEDS ORDERED: sulfamethoxazole/trimethoprim DS (800/160mg) tablet PO ONE (14:15)
[2022-09-19] MEDS ORDERED: SULF1TAB49 PO (15:09)
[2022-09-19] MEDS ORDERED: HYDROcodone/acetaminophen 5mg/325mg tablet PO ONE (15:10)
[2022-09-19] MEDS ORDERED: ondansetron 4mg rapidly disintigrating tab PO ONE (15:10)
--- NOTE | 2022-09-19 15:28 | NUR ---
CHAPERONED ANGELA BARROSO WITH PROCEDURE
== END 2022-09-19 15:47 | disposition home or self-care (01) ==
LOC: ER 12:19
DX: N76.4 Abscess of vulva (principal); K65.1 Peritoneal abscess; L02.414 Cutaneous abscess of left upper limb; G43.909 Migraine, unspecified, not intractable, without status migrainosus; J44.9 Chronic obstructive pulmonary disease, unspecified; E11.9 Type 2 diabetes mellitus without complications; E05.90 Thyrotoxicosis, unspecified without thyrotoxic crisis or storm; G89.29 Other chronic pain; F41.9 Anxiety disorder, unspecified; F32.A Depression, unspecified; F20.9 Schizophrenia, unspecified; F12.90 Cannabis use, unspecified, uncomplicated; Z87.440 Personal history of urinary (tract) infections; Z90.89 Acquired absence of other organs; Z98.890 Other specified postprocedural states; Z56.0 Unemployment, unspecified; Z88.5 Allergy status to narcotic agent; Z79.2 Long term (current) use of antibiotics; Z79.899 Other long term (current) drug therapy
CPT/HCPCS: 10061; 56405; 99284; A6449

== ENCOUNTER 2022-09-29 16:16 | Emergency (ER) | payer MEDICAID ==
[~2022-09-29] VITALS: Ht 167.6 cm; Wt 99.1 kg
[~2022-09-29 16:16] MED LIST changes: +SULF1TAB49 PO
[2022-09-29 16:29] VITALS: BP 108/78
[2022-09-29] MEDS ORDERED: CLIN30GE2 TOP (18:20)
[2022-09-29] MEDS ORDERED: DOXY100C76 PO (18:20)
[2022-09-29] MEDS ORDERED: TRAM50TA2 PO (18:20)
== END 2022-09-29 18:56 | disposition home or self-care (01) ==
LOC: ER 16:17
DX: L73.9 Follicular disorder, unspecified (principal); J44.9 Chronic obstructive pulmonary disease, unspecified; G89.29 Other chronic pain; M54.9 Dorsalgia, unspecified; F31.9 Bipolar disorder, unspecified; F20.9 Schizophrenia, unspecified; E03.9 Hypothyroidism, unspecified; Z90.49 Acquired absence of other specified parts of digestive tract; F12.10 Cannabis abuse, uncomplicated; Z98.890 Other specified postprocedural states; Z88.0 Allergy status to penicillin; Z79.899 Other long term (current) drug therapy; Z79.1 Long term (current) use of non-steroidal anti-inflammatories (NSAID); Z79.2 Long term (current) use of antibiotics
CPT/HCPCS: 99284; A6449

== ENCOUNTER 2022-10-13 10:41 | Emergency (ER) | payer MEDICAID ==
[~2022-10-13] VITALS: Ht 167.6 cm; Wt 100.0 kg
[~2022-10-13 10:41] MED LIST changes: +CLIN30GE2 TOP; -SULF1TAB49 PO; +TRAM50TA2 PO
[2022-10-13 11:04] VITALS: BP 150/90
--- NOTE | 2022-10-13 11:31 | NUR ---
c collar removed by dr garrison.
[2022-10-13] MEDS ORDERED: HYDROcodone/acetaminophen 5mg/325mg tablet PO ONE (12:00)
== END 2022-10-13 12:16 | disposition home or self-care (01) ==
LOC: ER 10:42
DX: M25.562 Pain in left knee (principal); G43.909 Migraine, unspecified, not intractable, without status migrainosus; J44.9 Chronic obstructive pulmonary disease, unspecified; E11.9 Type 2 diabetes mellitus without complications; G89.29 Other chronic pain; F41.9 Anxiety disorder, unspecified; F32.9 Major depressive disorder, single episode, unspecified; F20.9 Schizophrenia, unspecified; F12.90 Cannabis use, unspecified, uncomplicated; Z56.0 Unemployment, unspecified; Z88.5 Allergy status to narcotic agent; Z79.899 Other long term (current) drug therapy; Z90.49 Acquired absence of other specified parts of digestive tract; Z98.890 Other specified postprocedural states; Z90.89 Acquired absence of other organs
CPT/HCPCS: 73564; 99283

== ENCOUNTER 2022-11-11 13:25 | Emergency (ER) | payer MEDICAID ==
[~2022-11-11] VITALS: Ht 167.6 cm; Wt 100.9 kg
[~2022-11-11 13:25] MED LIST changes: -TRAM50TA2 PO
[2022-11-11 13:41] VITALS: BP 136/92
[2022-11-11] MEDS ORDERED: HYDROcodone/acetaminophen 5mg/325mg tablet PO ONE (16:40)
[2022-11-11] MEDS ORDERED: HYDR-3965 PO (17:14)
[2022-11-11] MEDS ORDERED: LIDOcaine 1% 30ml preserv. free vial IJ STA (17:36)
[2022-11-11] MEDS ORDERED: BUPIVAcaine/PF 2.5 mg/ml (0.25%) 30ml vial IJ ONE (17:40)
[2022-11-11] MEDS ORDERED: BUPIVAcaine/PF 2.5mg/ml (0.25%) 10ml vial IJ ONE (17:50)
[2022-11-11 18:42] LABS: SYNOVIAL FLUID CRYSTALS QT NO CRYSTALS SEEN
[2022-11-11 19:19] LABS: TOTAL PROTEIN,SYNOVIAL FLUID 4.8 GM/DL
== END 2022-11-11 18:22 | disposition home or self-care (01) ==
LOC: ER 13:26
DX: S83.92XA Sprain of unspecified site of left knee, initial encounter (principal); M25.462 Effusion, left knee; J45.909 Unspecified asthma, uncomplicated; J44.9 Chronic obstructive pulmonary disease, unspecified; E11.9 Type 2 diabetes mellitus without complications; G43.909 Migraine, unspecified, not intractable, without status migrainosus; F41.9 Anxiety disorder, unspecified; F32.A Depression, unspecified; F20.9 Schizophrenia, unspecified; M54.50 Low back pain, unspecified; E05.90 Thyrotoxicosis, unspecified without thyrotoxic crisis or storm; F12.90 Cannabis use, unspecified, uncomplicated; Z72.89 Other problems related to lifestyle; Z88.5 Allergy status to narcotic agent; Z79.899 Other long term (current) drug therapy; Z90.49 Acquired absence of other specified parts of digestive tract; Z90.89 Acquired absence of other organs; Z98.890 Other specified postprocedural states; W10.8XXA Fall (on) (from) other stairs and steps, initial encounter; Y93.89 Activity, other specified; Y92.89 Other specified places as the place of occurrence of the external cause; Y99.8 Other external cause status
CPT/HCPCS: 20610; 73564; 84157; 87070; 87075; 89060; 99284; A6449

== ENCOUNTER 2022-11-16 16:54 | Emergency (ER) | payer MEDICAID ==
[~2022-11-16] VITALS: Ht 167.6 cm; Wt 100.0 kg
[2022-11-16] MEDS ORDERED: fentaNYL/PF 50MCG/1 ML 2ML syringe IV ONE ×2 (16:55→18:00)
[2022-11-16] MEDS ORDERED: ketorolac trometh. 30mg/ml inj. IV ONE (16:55)
[2022-11-16] MEDS ORDERED: ondansetron/PF 4mg/2ml inj IV ONE (16:55)
[2022-11-16] MEDS ORDERED: normal saline 1000ML IV soln IVB ONE (16:55)
[2022-11-16] MEDS ORDERED: oxyCODONE/APAP 10/325mg tablet PO ONE (17:15)
[2022-11-16] MEDS ORDERED: ONDA4TAB12 PO ×2 (17:42)
[2022-11-16] MEDS ORDERED: OXYC-145 PO ×2 (17:42)
[2022-11-16] MEDS ORDERED: NAPR-56 PO ×2 (17:42)
[2022-11-16 18:03] VITALS: BP 117/67
--- NOTE | 2022-11-16 18:05 | NUR ---
AWATING ENAMEL SPRAYER TO PLACE SPLINT.
[2022-11-17] MEDS ORDERED: LEVO150T8 PO (14:26)
[2022-11-17] MEDS ORDERED: BUDE10.26 IH (14:26)
[2022-11-17] MEDS ORDERED: IBUP-1984 PO (14:28)
[2022-11-17] MEDS ORDERED: CETI10TA14 PO (14:28)
[2022-11-17] MEDS ORDERED: ALBU17AE26 IH (14:29)
[2022-11-17] MEDS ORDERED: ASPI-1071 PO (14:33)
== END 2022-11-16 21:07 | disposition home or self-care (01) ==
LOC: ER 16:55
DX: S82.432A Displaced oblique fracture of shaft of left fibula, initial encounter for closed fracture (principal); J44.9 Chronic obstructive pulmonary disease, unspecified; E11.9 Type 2 diabetes mellitus without complications; G89.29 Other chronic pain; M54.9 Dorsalgia, unspecified; F20.9 Schizophrenia, unspecified; F31.9 Bipolar disorder, unspecified; W18.39XA Other fall on same level, initial encounter; Y93.89 Activity, other specified; Y92.89 Other specified places as the place of occurrence of the external cause; Y99.8 Other external cause status
CPT/HCPCS: 73560; 73600; 96361; 96374; 96375; 96376; 99284; J1885; J2405; J3010; J7030; 96360

== ENCOUNTER 2022-11-17 10:17 | Inpatient (IN) | payer MEDICAID ==
[~2022-11-17] VITALS: Ht 167.6 cm; Wt 100.9 kg
[~2022-11-17 10:17] MED LIST changes: +ONDA4TAB12 PO
[2022-11-17] MEDS ORDERED: morphine 10mg/ml inj. IV ONE (10:40)
[2022-11-17] MEDS ORDERED: HYDROcodone/acetaminophen 10/325mg tab PO ONE (10:40)
[2022-11-17] MEDS ORDERED: ondansetron/PF 4mg/2ml inj IV ONE (11:55)
[2022-11-17] MEDS ORDERED: morphine 4 MG/ML inj SYRINge IV PRN (11:55)
[2022-11-17 12:18] LABS: BASOPHILS % (AUTO) 0.6 % (0-1); EOSINOPHILS # (AUTO) 0.2 X10'3 (0-0.9); EOSINOPHILS % (AUTO) 2.2 % (0-6); HEMATOCRIT 37.8 % (35.0-45.0); HEMOGLOBIN 12.8 g/dl (12.0-16.0); LYMPHOCYTES # (AUTO) 2.4 X10'3 (1.1-4.8); LYMPHOCYTES % (AUTO) 33.3 % (21-51); MEAN CORPUSCULAR HEMOGLOBIN 28.8 PG (27.0-31.0); MEAN CORPUSCULAR HGB CONC 33.9 g/dL (33.0-36.5); MEAN CORPUSCULAR VOLUME 84.9 FL (78-98); MEAN PLATELET VOLUME 6.9 FL (7.4-10.4); MONOCYTES # (AUTO) 0.2 X10'3 (0-0.9); MONOCYTES % (AUTO) 3.3 % (2-12); NEUTROPHILS # (AUTO) 4.3 X10'3 (1.8-7.7); NEUTROPHILS % (AUTO) 60.6 % (42-75); PLATELET COUNT 333 X10'3 (140-440); RED BLOOD COUNT 4.45 X10'6 (4.20-5.60); RED CELL DISTRIBUTION WIDTH 15.4 % (11.5-14.5); WHITE BLOOD COUNT 7.1 X10'3 (4.5-11.0)
[2022-11-17] MEDS ORDERED: potassium Cl 40MEQ/1/2NS 520ml 520 ML IV PRN (12:25)
[2022-11-17] MEDS ORDERED: magnesium 4gm in 100ml NS 100 ML IV PRN (12:25)
[2022-11-17] MEDS ORDERED: potassium Cl 20 mEq SR tablet PO PRN ×2 (12:25)
[2022-11-17] MEDS ORDERED: oxyCODONE IR 5mg (immed. release) tablet PO PRN (12:25)
[2022-11-17] MEDS ORDERED: mag hydrox/Alum hydrox/simeth 30ml oral suspension PO PRN (12:25)
[2022-11-17] MEDS ORDERED: acetaminophen 325mg tablet PO PRN (12:25)
[2022-11-17 12:29] LABS: ALANINE AMINOTRANSFERASE 42 U/L (12-78); ALBUMIN 3.5 G/DL (3.4-5.0); ALBUMIN/GLOBULIN RATIO 0.8 (1.1-1.5); ALKALINE PHOSPHATASE 136 IU/L (46-116); ANION GAP 7 (8-16); ASPARTATE AMINO TRANSFERASE 42 U/L (10-37); BILIRUBIN,TOTAL 0.2 MG/DL (0.1-1.0); BLOOD UREA NITROGEN 8 MG/DL (7-18); BUN/CREATININE RATIO 10.5 (6.6-38.0); CALCIUM 9.2 MG/DL (8.5-10.1); CHLORIDE 104 MMOL/L (99-107); CREATININE 0.76 MG/DL (0.40-0.90); GLUCOSE 98 MG/DL (70-104); POTASSIUM 3.8 MMOL/L (3.5-5.1); SODIUM 140 MMOL/L (135-145); TOTAL CARBON DIOXIDE 28.7 MMOL/L (24-32); TOTAL PROTEIN 7.8 G/DL (6.4-8.2); eGFR > 90 ML/MIN
[2022-11-17 12:54] LABS: ETHANOL < 0.010 GM/DL (0.0-0.010)
[2022-11-17] MEDS ORDERED: dextrose 50%-water 50ml dispensing syringe IV PRN ×2 (13:50)
[2022-11-17] MEDS ORDERED: DEXTROSE 15 GM of carb/4 tabs (each vial/BOTTLE has 4 tablets) PO PRN ×2 (13:50)
[2022-11-17] MEDS ORDERED: MESSAGE TO PHARMACY PO ONE (13:50)
[2022-11-17] MEDS ORDERED: glucagon, human recombinant 1mg kit SUBCUT PRN (13:50)
[2022-11-17] MEDS ORDERED: insulin Lispro (HumaLOG) vial - multi-dose SQ SCH (13:50)
[2022-11-17] MEDS ORDERED: albuterol 2.5 MG/3 ML nebule NEB PRN (13:55)
[2022-11-17] MEDS ORDERED: ipratropium/albuterol 3ml nebule NEB PRN (13:55)
[2022-11-17] MEDS: oxyCODONE IR 5mg (immed. release) tablet PO PRN ×3 (14:18→21:47)
[2022-11-17 14:25] LABS: HEMOGLOBIN A1C 5.9 % (4.5-6.2)
[2022-11-17] MEDS ORDERED: BUDE10.26 IH (14:26)
[2022-11-17] MEDS ORDERED: LEVO150T8 PO (14:26)
[2022-11-17] MEDS ORDERED: IBUP-1984 PO (14:28)
[2022-11-17] MEDS ORDERED: CETI10TA14 PO (14:28)
[2022-11-17] MEDS ORDERED: ALBU17AE26 IH (14:29)
[2022-11-17] MEDS ORDERED: ASPI-1071 PO (14:33)
[2022-11-17] MEDS ORDERED: busPIRone 5mg tablet PO PRN (14:40)
[2022-11-17] MEDS: nicotine 14mg patch - 24hr TD SCH (15:23)
[2022-11-17] MEDS: morphine 2 MG/ML inj. syringe IV PRN ×3 (15:24→23:36)
--- NOTE | 2022-11-17 16:30 | NUR ---
Patient in room RAY 356. I have received report from DAMARIS RAMIREZ and had the opportunity to ask questions and assume patient care.
--- NOTE | 2022-11-17 18:12 | NUR ---
Problems reprioritized. Patient report given, questions answered & plan of care reviewed with MONI RAMIREZ.
[2022-11-17 18:30] VITALS: BP 125/68
--- NOTE | 2022-11-17 18:30 | NUR ---
Patient in room RAY 356. I have received report from LEIA RAMIREZ and had the opportunity to ask questions and assume patient care.
[2022-11-17] MEDS: ondansetron/PF 4mg/2ml inj IV PRN (19:35)
[2022-11-17] MEDS: K and/or MAG REPLACEMENT MC SCH (20:00)
[2022-11-17] MEDS: enoxaparin 40mg/0.4ml syringe SQ SCH (20:43)
[2022-11-17] MEDS: montelukast 10mg tablet PO SCH (20:45)
[2022-11-17] MEDS: gabapentin 300mg capsule PO SCH (20:45)
[2022-11-17] MEDS: docusate sod 100mg capsule PO SCH (20:46)
[2022-11-17] MEDS: insulin glargine (Lantus) pen - multi-dose SQ SCH (21:00)
[2022-11-17] MEDS: cyclobenzaprine 10mg tablet PO PRN (21:24)
[2022-11-17] MEDS: traZODone 50mg tablet PO PRN (21:24)
[2022-11-17 22:00] VITALS: BP 121/78
[2022-11-18] MEDS: oxyCODONE IR 5mg (immed. release) tablet PO PRN ×5 (02:12→19:42)
[2022-11-18] MEDS: morphine 2 MG/ML inj. syringe IV PRN ×5 (03:41→20:46)
[2022-11-18] MEDS: cyclobenzaprine 10mg tablet PO PRN ×2 (05:47→05:54)
--- NOTE | 2022-11-18 06:24 | NUR ---
Problems reprioritized. Patient report given, questions answered & plan of care reviewed with LEIA RN.
[2022-11-18 07:08] VITALS: BP 130/81
[2022-11-18] MEDS: cetirizine 10mg tablet PO SCH (07:53)
[2022-11-18] MEDS: FLUoxetine 20mg capsule PO SCH (07:53)
[2022-11-18] MEDS: docusate sod 100mg capsule PO SCH ×2 (07:53→19:41)
[2022-11-18] MEDS: levoTHYROXINE 75mcg tablet PO SCH (07:54)
[2022-11-18] MEDS: nicotine 14mg patch - 24hr TD SCH (07:54)
[2022-11-18] MEDS: K and/or MAG REPLACEMENT MC SCH ×2 (08:00→20:00)
[2022-11-18 08:58] LABS: BASOPHILS % (AUTO) 0.8 % (0-1); EOSINOPHILS # (AUTO) 0.4 X10'3 (0-0.9); EOSINOPHILS % (AUTO) 5.4 % (0-6); HEMATOCRIT 35.4 % (35.0-45.0); HEMOGLOBIN 11.7 g/dl (12.0-16.0); LYMPHOCYTES # (AUTO) 2.9 X10'3 (1.1-4.8); LYMPHOCYTES % (AUTO) 44.8 % (21-51); MEAN CORPUSCULAR HEMOGLOBIN 27.9 PG (27.0-31.0); MEAN CORPUSCULAR HGB CONC 33.1 g/dL (33.0-36.5); MEAN CORPUSCULAR VOLUME 84.5 FL (78-98); MONOCYTES # (AUTO) 0.3 X10'3 (0-0.9); MONOCYTES % (AUTO) 4.3 % (2-12); NEUTROPHILS # (AUTO) 2.9 X10'3 (1.8-7.7); NEUTROPHILS % (AUTO) 44.7 % (42-75); PLATELET COUNT 308 X10'3 (140-440); RED BLOOD COUNT 4.19 X10'6 (4.20-5.60); RED CELL DISTRIBUTION WIDTH 15.9 % (11.5-14.5); WHITE BLOOD COUNT 6.5 X10'3 (4.5-11.0)
[2022-11-18 09:13] LABS: APTT 34 SECONDS (22-32)
[2022-11-18 09:28] LABS: ALANINE AMINOTRANSFERASE 44 U/L (12-78); ALBUMIN 3.2 G/DL (3.4-5.0); ALBUMIN/GLOBULIN RATIO 0.8 (1.1-1.5); ALKALINE PHOSPHATASE 118 IU/L (46-116); ANION GAP 7 (8-16); ASPARTATE AMINO TRANSFERASE 44 U/L (10-37); BILIRUBIN,TOTAL 0.3 MG/DL (0.1-1.0); BLOOD UREA NITROGEN 6 MG/DL (7-18); BUN/CREATININE RATIO 8.3 (6.6-38.0); CHLORIDE 103 MMOL/L (99-107); CREATININE 0.72 MG/DL (0.40-0.90); GLUCOSE 103 MG/DL (70-104); MAGNESIUM 1.9 MG/DL (1.5-2.4); POTASSIUM 3.4 MMOL/L (3.5-5.1); SODIUM 139 MMOL/L (135-145); TOTAL CARBON DIOXIDE 29.4 MMOL/L (24-32); TOTAL PROTEIN 7.2 G/DL (6.4-8.2); eGFR > 90 ML/MIN
[2022-11-18 11:08] VITALS: BP 134/81
[2022-11-18 11:12] VITALS: BP 121/79
--- NOTE | 2022-11-18 11:14 | NUR ---
DM consult: Per EMR pt with T2DM though pt with no DM meds on home med list and pt with A1c 5.9%, up from 5.4% 11/05/2019, not suggestive of DM per ADA guidelines. BG 58-108 mg/dL since admit. DM education and CHO controlled diet restriction not warranted at this time, d/w RN. Pt now on a regular diet. Will continue to follow. Addendum: 11/18/22 at [address] Amended: Links added.
[2022-11-18] MEDS: dronabinol 2.5mg capsule PO PRN ×2 (15:12→22:14)
[2022-11-18 18:00] VITALS: BP 125/87
--- NOTE | 2022-11-18 18:39 | NUR ---
Problems reprioritized. Patient report given, questions answered & plan of care reviewed with ramez RAMIREZ.
[2022-11-18] MEDS: gabapentin 300mg capsule PO SCH (19:42)
[2022-11-18] MEDS: montelukast 10mg tablet PO SCH (19:44)
[2022-11-18] MEDS: enoxaparin 40mg/0.4ml syringe SQ SCH (19:45)
[2022-11-18] MEDS: insulin glargine (Lantus) pen - multi-dose SQ SCH (20:52)
[2022-11-18 22:00] VITALS: BP 129/86
[2022-11-18] MEDS: traZODone 50mg tablet PO PRN (22:13)
[2022-11-19] VITALS (31 sets, daily range): BP systolic 113–150; BP diastolic 71–100
[2022-11-19] MEDS: morphine 2 MG/ML inj. syringe IV PRN ×5 (01:06→21:11)
--- NOTE | 2022-11-19 06:00 | NUR ---
Patient in room RAY 356. I have received report from YESIKA RAMIREZ and had the opportunity to ask questions and assume patient care.
--- NOTE | 2022-11-19 06:09 | NUR ---
Problems reprioritized. Patient report given, questions answered & plan of care reviewed with Guillermo RAMIREZ. Addendum: 11/19/22 at 0609 by Macy Mccloud RN Amended: Links added.
[2022-11-19 06:33] LABS: BASOPHILS % (AUTO) 0.7 % (0-1); EOSINOPHILS # (AUTO) 0.3 X10'3 (0-0.9); EOSINOPHILS % (AUTO) 5.1 % (0-6); HEMOGLOBIN 11.2 g/dl (12.0-16.0); LYMPHOCYTES # (AUTO) 2.4 X10'3 (1.1-4.8); LYMPHOCYTES % (AUTO) 40.3 % (21-51); MEAN CORPUSCULAR HEMOGLOBIN 28.1 PG (27.0-31.0); MEAN CORPUSCULAR HGB CONC 33.1 g/dL (33.0-36.5); MEAN CORPUSCULAR VOLUME 84.9 FL (78-98); MEAN PLATELET VOLUME 7.1 FL (7.4-10.4); MONOCYTES # (AUTO) 0.4 X10'3 (0-0.9); MONOCYTES % (AUTO) 5.9 % (2-12); NEUTROPHILS # (AUTO) 2.9 X10'3 (1.8-7.7); PLATELET COUNT 300 X10'3 (140-440); RED CELL DISTRIBUTION WIDTH 15.4 % (11.5-14.5)
[2022-11-19 06:57] LABS: ALANINE AMINOTRANSFERASE 46 U/L (12-78); ALBUMIN/GLOBULIN RATIO 0.8 (1.1-1.5); ALKALINE PHOSPHATASE 116 IU/L (46-116); ANION GAP 8 (8-16); ASPARTATE AMINO TRANSFERASE 49 U/L (10-37); BILIRUBIN,TOTAL 0.3 MG/DL (0.1-1.0); BLOOD UREA NITROGEN 7 MG/DL (7-18); BUN/CREATININE RATIO 9.7 (6.6-38.0); CHLORIDE 102 MMOL/L (99-107); CREATININE 0.72 MG/DL (0.40-0.90); GLUCOSE 103 MG/DL (70-104); MAGNESIUM 1.8 MG/DL (1.5-2.4); POTASSIUM 3.6 MMOL/L (3.5-5.1); SODIUM 137 MMOL/L (135-145); TOTAL CARBON DIOXIDE 27.1 MMOL/L (24-32); TOTAL PROTEIN 6.9 G/DL (6.4-8.2); eGFR > 90 ML/MIN
[2022-11-19] MEDS: K and/or MAG REPLACEMENT MC SCH ×2 (08:00→19:13)
[2022-11-19] MEDS: nicotine 14mg patch - 24hr TD SCH (08:35)
[2022-11-19] MEDS: docusate sod 100mg capsule PO SCH ×2 (08:35→19:14)
[2022-11-19] MEDS: cetirizine 10mg tablet PO SCH (08:35)
[2022-11-19] MEDS: levoTHYROXINE 75mcg tablet PO SCH (08:35)
[2022-11-19] MEDS: FLUoxetine 20mg capsule PO SCH (08:36)
[2022-11-19] MEDS: dronabinol 2.5mg capsule PO PRN ×2 (10:54→20:24)
[2022-11-19] MEDS ORDERED: BUPIVAcaine 0.5% inj/PF 30 ML ONE (11:36)
[2022-11-19] MEDS ORDERED: vancomycin 1,000mg inj ONE (11:36)
--- NOTE | 2022-11-19 11:39 | NUR ---
ATTEMPTED TO CALL REPORT TO RECOVERY, NO ONE ANSWERED AT THIS TIME. PRE-OP CHECKLIST COMPLETE IF I DON'T GET IN TOUCH WITH RECOVERY.
[2022-11-19] MEDS ORDERED: sevoflurane 250ml liquid IH ONE (11:51)
[2022-11-19] MEDS ORDERED: ceFAZolin 1000mg inj ONE (11:51)
[2022-11-19] MEDS ORDERED: midazolam 1 mg/ML 2ml injection ONE ×2 (11:52→16:48)
[2022-11-19] MEDS ORDERED: propofol inj 20 ML IV ONE (11:52)
[2022-11-19] MEDS ORDERED: fentaNYL /PF 50mcg/ml 5ml ampule ONE (11:52)
[2022-11-19] MEDS ORDERED: ondansetron/PF 4mg/2ml inj ONE (12:40)
[2022-11-19] MEDS ORDERED: dexamethasone sod phosphate 4mg/ml inj. ONE (12:40)
[2022-11-19] MEDS ORDERED: ondansetron/PF 4mg/2ml inj IV PRN (12:45)
[2022-11-19] MEDS ORDERED: proCHLORperazine 10 MG/2 ml inj IV PRN (12:45)
[2022-11-19] MEDS ORDERED: morphine 2 MG/ML inj. syringe IV PRN (12:45)
[2022-11-19] MEDS ORDERED: ringers solution, lacted 1,000 ML IV SCH (12:45)
[2022-11-19] MEDS ORDERED: meperidine/PF 25mg/ml syringe IV PRN ×2 (12:45)
[2022-11-19] MEDS ORDERED: BUPIVAcaine 0.5% inj/PF 30 ml vial IJ ONE (12:46)
--- NOTE | 2022-11-19 13:15 | NUR ---
Received from OR via BED, accompanied by Anesthesiologist DR ANDREWS and report given by Anesthesioolgist AND FUNERAL LOCATION MANAGER. PT DROWSY, DENIES PAIN. LEFT LEG FROM TIP OF TOES TO BELOW KNEE W/LORI WRAP COVERING SPLINT/INCISION/DRSG CDI, TOES WARM AND DRY, PHARMACIST 1-2 SECONDS. Addendum: 11/19/22 at 1343 by Tammy Christy RN Amended: Links added.
[2022-11-19] MEDS: morphine 4 MG/ML inj SYRINge IV PRN ×4 (13:43→15:24)
[2022-11-19] MEDS: meperidine/PF 25mg/ml syringe IV PRN ×2 (14:15→14:20)
[2022-11-19] MEDS: oxyCODONE IR 5mg (immed. release) tablet PO PRN ×3 (14:33→23:33)
--- NOTE | 2022-11-19 14:37 | NUR ---
PTS PAIN HAS BEEN HIGH, HAS HAD SOME IMPROVEMENT AND RESTING INTERMITTENTLY, 10MG PERCOCET GIVEN, PT RESTING AND APPEARS MUCH MORE COMFORTABLE. RN ACCIDENTALLY SCANNED 4 MG MORPHINE 3 TIMES, ONLY ADMINISTERED 2 TIMES, ATTEMPTED TO UNDO ONE SCAN IN EMAR, AT THIS POINT IT APPEARS TO STILL SHOW 3. Addendum: 11/19/22 at 1441 by Tammy Christy RN Amended: Links added.
[2022-11-19] MEDS ORDERED: ketorolac trometh. 30mg/ml inj. IV ONE ×2 (14:50→14:55)
--- NOTE | 2022-11-19 15:00 | NUR ---
Patient in room RAY 356. I have received report from Tammy RAMIREZ and had the opportunity to ask questions and assume patient care.
--- NOTE | 2022-11-19 15:02 | NUR ---
DR BELTRAN IN, ORDERS TO GIVE 30 MG TORADOL IV TO ASSIST W/PAIN CONTROL. PT STATES PAIN IS STILL 8. Addendum: 11/19/22 at 1503 by Tammy Christy RN Amended: Links added.
[2022-11-19] MEDS ORDERED: acetaminophen 1,000mg/100ml IV 100 ML IV ONE (15:20)
[2022-11-19] MEDS ORDERED: ROPIVAcaine 0.5% (5mg/ml) 30ml vial ONE (16:42)
--- NOTE | 2022-11-19 17:40 | NUR ---
Patient just arrived to floor had bedside report with recovery nurse.
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
--- NOTE | 2022-11-19 18:23 | NUR ---
Problems reprioritized. Patient report given, questions answered & plan of care reviewed with Gaby RAMIREZ.
[2022-11-19] MEDS: cyclobenzaprine 10mg tablet PO PRN (18:40)
[2022-11-19] MEDS: enoxaparin 40mg/0.4ml syringe SQ SCH (19:02)
[2022-11-19] MEDS: montelukast 10mg tablet PO SCH (20:24)
[2022-11-19] MEDS: traZODone 50mg tablet PO PRN (20:24)
[2022-11-19] MEDS: gabapentin 300mg capsule PO SCH (20:24)
[2022-11-19] MEDS: insulin glargine (Lantus) pen - multi-dose SQ SCH (20:30)
[2022-11-20] MEDS: morphine 2 MG/ML inj. syringe IV PRN ×2 (01:18→07:28)
[2022-11-20 02:00] VITALS: BP 110/70
[2022-11-20] MEDS: cyclobenzaprine 10mg tablet PO PRN ×3 (02:51→21:10)
[2022-11-20] MEDS: dronabinol 2.5mg capsule PO PRN ×2 (02:51→12:15)
[2022-11-20 04:09] LABS: BASOPHILS % (AUTO) 0.3 % (0-1); EOSINOPHILS % (AUTO) 0 % (0-6); HEMATOCRIT 32.5 % (35.0-45.0); HEMOGLOBIN 10.8 g/dl (12.0-16.0); LYMPHOCYTES # (AUTO) 1.8 X10'3 (1.1-4.8); MEAN CORPUSCULAR HEMOGLOBIN 27.9 PG (27.0-31.0); MEAN CORPUSCULAR HGB CONC 33.2 g/dL (33.0-36.5); MEAN CORPUSCULAR VOLUME 84.2 FL (78-98); MEAN PLATELET VOLUME 6.7 FL (7.4-10.4); MONOCYTES # (AUTO) 0.5 X10'3 (0-0.9); MONOCYTES % (AUTO) 5.1 % (2-12); NEUTROPHILS # (AUTO) 7.6 X10'3 (1.8-7.7); NEUTROPHILS % (AUTO) 76.6 % (42-75); PLATELET COUNT 330 X10'3 (140-440); RED BLOOD COUNT 3.87 X10'6 (4.20-5.60); RED CELL DISTRIBUTION WIDTH 15.4 % (11.5-14.5); WHITE BLOOD COUNT 9.9 X10'3 (4.5-11.0)
[2022-11-20 04:43] LABS: ALANINE AMINOTRANSFERASE 49 U/L (12-78); ALBUMIN 2.9 G/DL (3.4-5.0); ALBUMIN/GLOBULIN RATIO 0.7 (1.1-1.5); ALKALINE PHOSPHATASE 107 IU/L (46-116); ANION GAP 6 (8-16); ASPARTATE AMINO TRANSFERASE 50 U/L (10-37); BILIRUBIN,TOTAL 0.2 MG/DL (0.1-1.0); BLOOD UREA NITROGEN 7 MG/DL (7-18); BUN/CREATININE RATIO 8.6 (6.6-38.0); CALCIUM 8.6 MG/DL (8.5-10.1); CHLORIDE 101 MMOL/L (99-107); CREATININE 0.81 MG/DL (0.40-0.90); GLUCOSE 119 MG/DL (70-104); POTASSIUM 4.3 MMOL/L (3.5-5.1); SODIUM 135 MMOL/L (135-145); TOTAL PROTEIN 6.9 G/DL (6.4-8.2); eGFR > 90 ML/MIN
[2022-11-20 05:00] VITALS: BP 112/61
[2022-11-20] MEDS: oxyCODONE IR 5mg (immed. release) tablet PO PRN (05:14)
[2022-11-20] MEDS: cetirizine 10mg tablet PO SCH (07:28)
[2022-11-20] MEDS: nicotine 14mg patch - 24hr TD SCH (07:28)
[2022-11-20] MEDS: docusate sod 100mg capsule PO SCH ×2 (07:28→19:47)
[2022-11-20] MEDS: FLUoxetine 20mg capsule PO SCH (07:28)
[2022-11-20] MEDS: levoTHYROXINE 75mcg tablet PO SCH (07:29)
[2022-11-20] MEDS: K and/or MAG REPLACEMENT MC SCH ×2 (08:00→20:00)
[2022-11-20] MEDS ORDERED: HYDROmorphone/PF 0.2 MG/ML SYRINGE IV PRN (09:40)
[2022-11-20] MEDS: oxyCODONE/APAP 10/325mg tablet PO PRN ×3 (10:14→22:27)
[2022-11-20 11:00] VITALS: BP 100/62
--- NOTE | 2022-11-20 12:21 | NUR ---
PAGER ID: [phone] MESSAGE: [phone] Lynn 0.2mg dil didnt even touch her pain. already gave percocet and she is crying. Ericka RAMIREZ
[2022-11-20] MEDS: HYDROmorphone inj. 0.5 MG/0.5 ML DISP.SYRIN IV PRN ×3 (14:57→23:01)
[2022-11-20 18:00] VITALS: BP 115/67
[2022-11-20] MEDS: enoxaparin 40mg/0.4ml syringe SQ SCH (19:47)
[2022-11-20] MEDS: montelukast 10mg tablet PO SCH (19:49)
[2022-11-20] MEDS: gabapentin 300mg capsule PO SCH (19:51)
[2022-11-20] MEDS: insulin glargine (Lantus) pen - multi-dose SQ SCH (21:00)
[2022-11-20] MEDS: traZODone 50mg tablet PO PRN (21:10)
[2022-11-20 22:00] VITALS: BP 124/80
[2022-11-21 02:00] VITALS: BP 122/72
[2022-11-21 05:00] VITALS: BP 127/80
[2022-11-21 06:43] LABS: BASOPHILS % (AUTO) 0.5 % (0-1); EOSINOPHILS # (AUTO) 0.3 X10'3 (0-0.9); EOSINOPHILS % (AUTO) 4.4 % (0-6); HEMATOCRIT 33.6 % (35.0-45.0); HEMOGLOBIN 11.5 g/dl (12.0-16.0); LYMPHOCYTES # (AUTO) 3.1 X10'3 (1.1-4.8); LYMPHOCYTES % (AUTO) 40.7 % (21-51); MEAN CORPUSCULAR HEMOGLOBIN 28.8 PG (27.0-31.0); MEAN CORPUSCULAR HGB CONC 34.1 g/dL (33.0-36.5); MEAN CORPUSCULAR VOLUME 84.3 FL (78-98); MEAN PLATELET VOLUME 6.5 FL (7.4-10.4); MONOCYTES # (AUTO) 0.4 X10'3 (0-0.9); MONOCYTES % (AUTO) 4.9 % (2-12); NEUTROPHILS # (AUTO) 3.8 X10'3 (1.8-7.7); NEUTROPHILS % (AUTO) 49.5 % (42-75); PLATELET COUNT 325 X10'3 (140-440); RED BLOOD COUNT 3.99 X10'6 (4.20-5.60); RED CELL DISTRIBUTION WIDTH 15.6 % (11.5-14.5); WHITE BLOOD COUNT 7.6 X10'3 (4.5-11.0)
[2022-11-21 07:02] LABS: ALANINE AMINOTRANSFERASE 34 U/L (12-78); ALBUMIN 2.9 G/DL (3.4-5.0); ALBUMIN/GLOBULIN RATIO 0.7 (1.1-1.5); ALKALINE PHOSPHATASE 104 IU/L (46-116); ANION GAP 6 (8-16); ASPARTATE AMINO TRANSFERASE 38 U/L (10-37); BILIRUBIN,TOTAL 0.3 MG/DL (0.1-1.0); BLOOD UREA NITROGEN 7 MG/DL (7-18); BUN/CREATININE RATIO 9.6 (6.6-38.0); CALCIUM 9.2 MG/DL (8.5-10.1); CHLORIDE 102 MMOL/L (99-107); CREATININE 0.73 MG/DL (0.40-0.90); GLUCOSE 100 MG/DL (70-104); POTASSIUM 3.9 MMOL/L (3.5-5.1); SODIUM 137 MMOL/L (135-145); TOTAL CARBON DIOXIDE 28.6 MMOL/L (24-32); TOTAL PROTEIN 7.1 G/DL (6.4-8.2); eGFR > 90 ML/MIN
[2022-11-21] MEDS: docusate sod 100mg capsule PO SCH ×2 (07:47→20:12)
[2022-11-21] MEDS: HYDROmorphone inj. 0.5 MG/0.5 ML DISP.SYRIN IV PRN (07:47)
[2022-11-21] MEDS: cyclobenzaprine 10mg tablet PO PRN ×2 (07:47→15:20)
[2022-11-21] MEDS: FLUoxetine 20mg capsule PO SCH (07:47)
[2022-11-21] MEDS: nicotine 14mg patch - 24hr TD SCH (07:48)
[2022-11-21] MEDS: cetirizine 10mg tablet PO SCH (07:48)
[2022-11-21] MEDS: levoTHYROXINE 75mcg tablet PO SCH (07:48)
[2022-11-21] MEDS: K and/or MAG REPLACEMENT MC SCH ×2 (08:00→20:00)
[2022-11-21] MEDS: oxyCODONE/APAP 10/325mg tablet PO PRN ×3 (09:27→20:13)
[2022-11-21] MEDS: dronabinol 2.5mg capsule PO PRN (10:02)
[2022-11-21 11:00] VITALS: BP 125/81
[2022-11-21] MEDS ORDERED: ketorolac tromethamine 15mg/ml inj. IV ONE (11:35)
[2022-11-21] MEDS ORDERED: bisacodyl 10mg suppository rectal RC PRN (11:55)
[2022-11-21] MEDS: morphine 4 MG/ML inj SYRINge IV PRN ×3 (11:56→21:21)
[2022-11-21] MEDS: magnesium hydroxide 30ml (MOM) UD suspension PO PRN (13:16)
--- NOTE | 2022-11-21 15:30 | NUR ---
Patient refusing buspar for anxiety states it makes her feel like she's "on drugs". Is willing to try ativan. Message to Dr Aragon, new order
[2022-11-21] MEDS ORDERED: LORazepam 0.5 MG tablet PO PRN (15:35)
[2022-11-21 18:00] VITALS: BP 131/85
--- NOTE | 2022-11-21 18:46 | NUR ---
Report to December RN
[2022-11-21] MEDS: enoxaparin 40mg/0.4ml syringe SQ SCH (20:12)
[2022-11-21] MEDS: ketorolac tromethamine 15mg/ml inj. IM SCH (20:13)
[2022-11-21] MEDS: ondansetron/PF 4mg/2ml inj IV PRN (20:35)
[2022-11-21] MEDS: insulin glargine (Lantus) pen - multi-dose SQ SCH (21:00)
[2022-11-21] MEDS: gabapentin 300mg capsule PO SCH (21:20)
[2022-11-21] MEDS: montelukast 10mg tablet PO SCH (21:20)
[2022-11-22] MEDS: oxyCODONE/APAP 10/325mg tablet PO PRN ×4 (00:25→20:18)
[2022-11-22] MEDS: traZODone 50mg tablet PO PRN ×2 (00:27→20:16)
[2022-11-22 00:30] VITALS: BP 113/65
[2022-11-22] MEDS: ketorolac tromethamine 15mg/ml inj. IM SCH (02:57)
--- NOTE | 2022-11-22 03:19 | NUR ---
Patient sleeping, woke patient for routine toradol as per patient her pain is 9/10, she could barley keep her eyes open. After toradol injection patiet began crying and then went back to sleep right away.
[2022-11-22 06:32] LABS: BASOPHILS % (AUTO) 0.5 % (0-1); EOSINOPHILS # (AUTO) 0.4 X10'3 (0-0.9); EOSINOPHILS % (AUTO) 4.1 % (0-6); HEMATOCRIT 34.5 % (35.0-45.0); HEMOGLOBIN 11.6 g/dl (12.0-16.0); LYMPHOCYTES # (AUTO) 2.7 X10'3 (1.1-4.8); LYMPHOCYTES % (AUTO) 27.9 % (21-51); MEAN CORPUSCULAR HEMOGLOBIN 28.6 PG (27.0-31.0); MEAN CORPUSCULAR HGB CONC 33.6 g/dL (33.0-36.5); MEAN CORPUSCULAR VOLUME 85.1 FL (78-98); MEAN PLATELET VOLUME 6.7 FL (7.4-10.4); MONOCYTES # (AUTO) 0.6 X10'3 (0-0.9); MONOCYTES % (AUTO) 5.9 % (2-12); NEUTROPHILS % (AUTO) 61.6 % (42-75); PLATELET COUNT 337 X10'3 (140-440); RED BLOOD COUNT 4.06 X10'6 (4.20-5.60); RED CELL DISTRIBUTION WIDTH 15.4 % (11.5-14.5); WHITE BLOOD COUNT 9.7 X10'3 (4.5-11.0)
[2022-11-22 06:49] LABS: ALANINE AMINOTRANSFERASE 26 U/L (12-78); ALBUMIN 2.9 G/DL (3.4-5.0); ALBUMIN/GLOBULIN RATIO 0.7 (1.1-1.5); ALKALINE PHOSPHATASE 105 IU/L (46-116); ANION GAP 5 (8-16); ASPARTATE AMINO TRANSFERASE 18 U/L (10-37); BILIRUBIN,TOTAL 0.4 MG/DL (0.1-1.0); BLOOD UREA NITROGEN 11 MG/DL (7-18); BUN/CREATININE RATIO 14.1 (6.6-38.0); CHLORIDE 101 MMOL/L (99-107); CREATININE 0.78 MG/DL (0.40-0.90); GLUCOSE 106 MG/DL (70-104); MAGNESIUM 2.3 MG/DL (1.5-2.4); SODIUM 133 MMOL/L (135-145); TOTAL CARBON DIOXIDE 27.5 MMOL/L (24-32); TOTAL PROTEIN 7.2 G/DL (6.4-8.2); eGFR > 90 ML/MIN
[2022-11-22] MEDS: K and/or MAG REPLACEMENT MC SCH ×2 (08:00→20:00)
[2022-11-22] MEDS: nicotine 14mg patch - 24hr TD SCH (08:00)
[2022-11-22] MEDS: levoTHYROXINE 75mcg tablet PO SCH (10:07)
[2022-11-22] MEDS: docusate sod 100mg capsule PO SCH ×2 (10:08→20:00)
[2022-11-22] MEDS: cetirizine 10mg tablet PO SCH (10:08)
[2022-11-22] MEDS: FLUoxetine 20mg capsule PO SCH (10:08)
[2022-11-22] MEDS: ketorolac tromethamine 15mg/ml inj. IV SCH ×3 (10:09→20:19)
[2022-11-22] MEDS: magnesium hydroxide 30ml (MOM) UD suspension PO PRN (10:09)
[2022-11-22] MEDS: morphine 4 MG/ML inj SYRINge IV PRN ×3 (12:27→22:30)
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
[2022-11-22 18:00] VITALS: BP 107/72
[2022-11-22] MEDS ORDERED: lactulose 20gm/30ml cup PO ONE (18:10)
[2022-11-22] MEDS: cyclobenzaprine 10mg tablet PO PRN (18:55)
[2022-11-22] MEDS: enoxaparin 40mg/0.4ml syringe SQ SCH (20:16)
[2022-11-22] MEDS: gabapentin 300mg capsule PO SCH (20:17)
[2022-11-22] MEDS: montelukast 10mg tablet PO SCH (20:18)
[2022-11-22] MEDS: dronabinol 2.5mg capsule PO PRN (20:30)
[2022-11-22 20:45] VITALS: BP 116/65
[2022-11-22] MEDS ORDERED: sennosides/docusate sodium tablet PO SCH (21:00)
--- NOTE | 2022-11-22 22:30 | NUR ---
pt notified staff that she had bleeding from rectum in the BSC and when wiping. student RN verified there was blood on the wipe and in the commode. pt just reported having a very large, painful bowel movement that was the largest she had ever had. "It just kept coming". pt states anus is also dilated "will it ever come back to normal". educated pt that sphincter will return and to let staff know if any further bleeding occurs but most likely bleeding from enlarged anus with hard BM passing. pt resting at this time.
[2022-11-23] MEDS: oxyCODONE/APAP 10/325mg tablet PO PRN ×3 (02:06→12:04)
--- NOTE | 2022-11-23 05:59 | NUR ---
reported to days. noted pt asked for morphine when just woken up - but due for percocet first. percocet given - pt can have morphine after physical therapy if pain persists. awaiting safe discharge or help at home with multiple steps to her apartment.
--- NOTE | 2022-11-23 06:35 | NUR ---
report recieved from Snadhya RAMIREZ, questions asked and answered. Pt is sleeping at this time. Care assumed of pt.
[2022-11-23] MEDS: K and/or MAG REPLACEMENT MC SCH (06:46)
[2022-11-23 07:00] VITALS: BP 113/71
--- NOTE | 2022-11-23 07:35 | NUR ---
Pt refused am vital signs
[2022-11-23] MEDS: levoTHYROXINE 75mcg tablet PO SCH (07:44)
[2022-11-23] MEDS: cetirizine 10mg tablet PO SCH (07:44)
[2022-11-23] MEDS: FLUoxetine 20mg capsule PO SCH (07:45)
[2022-11-23] MEDS: docusate sod 100mg capsule PO SCH (07:45)
[2022-11-23] MEDS: nicotine 14mg patch - 24hr TD SCH (07:46)
[2022-11-23] MEDS: morphine 4 MG/ML inj SYRINge IV PRN ×2 (08:06→13:24)
[2022-11-23] MEDS: cyclobenzaprine 10mg tablet PO PRN (08:40)
[2022-11-23 10:10] VITALS: BP 109/69
[2022-11-23 11:08] VITALS: BP 109/69
--- NOTE | 2022-11-23 11:43 | NUR ---
small amount of rectal bleeding while toileting, small smear of elzbieta red blood while wiping. No BM occurred.
[2022-11-23] MEDS ORDERED: NICO-631 TD (12:42)
[2022-11-23] MEDS ORDERED: OXYC1TAB17 PO (12:42)
[2022-11-23] MEDS ORDERED: ASPI-1071 PO (12:42)
== END 2022-11-23 13:37 | disposition home health service (06) | DRG 313 ==
LOC: ER 10:17 → ED HOLD 12:34 → SUR 3N 16:30
PROVIDERS: ADMIT Family Medicine; ATTEND Family Medicine
PROC: 0QSH36Z Reposition Left Tibia with Intramedullary Internal Fixation Device, Percutaneous Approach (ICD-10-PCS; principal; 2022-11-19 11:51)
DX: S82.242A Displaced spiral fracture of shaft of left tibia, initial encounter for closed fracture (principal); E11.42 Type 2 diabetes mellitus with diabetic polyneuropathy; B00.9 Herpesviral infection, unspecified; E05.00 Thyrotoxicosis with diffuse goiter without thyrotoxic crisis or storm; F17.210 Nicotine dependence, cigarettes, uncomplicated; F32.A Depression, unspecified; F41.9 Anxiety disorder, unspecified; F12.90 Cannabis use, unspecified, uncomplicated; S82.832A Other fracture of upper and lower end of left fibula, initial encounter for closed fracture; G43.909 Migraine, unspecified, not intractable, without status migrainosus; W00.0XXA Fall on same level due to ice and snow, initial encounter; G89.29 Other chronic pain; M54.9 Dorsalgia, unspecified; F20.9 Schizophrenia, unspecified; J44.9 Chronic obstructive pulmonary disease, unspecified; Z80.3 Family history of malignant neoplasm of breast; Z82.3 Family history of stroke; Z56.0 Unemployment, unspecified; Z79.84 Long term (current) use of oral hypoglycemic drugs; Z88.5 Allergy status to narcotic agent; Z79.899 Other long term (current) drug therapy; Z71.6 Tobacco abuse counseling; Y93.89 Activity, other specified; Y92.89 Other specified places as the place of occurrence of the external cause; Y99.8 Other external cause status
CPT/HCPCS: 36415; 71045; 73560; 73590; 73600; 76000; 80053; 80320; 82948; 83036; 83735; 84443; 85025; 85610; 85730; 87081; 93005; 94640; 94760; 96374; 96375; 97116; 97161; 97530; 99285; A4618; A6222; A6223; A6258; A6402; A6449; A7000; C1713; G0378; J0131; J0690; J1100; J1170; J1650; J1815; J1885; J2175; J2250; J2270; J2274; J2405; J2704; J2795; J3010; J3370; J7040; J7060; J7120; Q0167; S0020

== ENCOUNTER 2023-02-08 12:49 | Emergency (ER) | payer MEDICAID ==
[~2023-02-08] VITALS: Ht 167.6 cm; Wt 90.9 kg
[~2023-02-08 12:49] MED LIST changes: +ALBU17AE26 IH; +ASPI-1071 PO; +BUDE10.26 IH; -CEPH-585 PO; +CETI10TA14 PO; -CHLO50TA52 PO; -CLIN30GE2 TOP; +IBUP-1984 PO; -IBUP-1986 PO; +LEVO150T8 PO; -LEVO175T7 PO; -NAPR-56 PO; +NICO-631 TD; -ONDA4TAB12 PO; -OXYC-145 PO; +OXYC1TAB17 PO; -PRAZ5CAP2 PO; -QUET-28 PO; -SUCR1TAB34 PO
[2023-02-08 13:06] VITALS: BP 118/77
[2023-02-08] MEDS ORDERED: OXYC-145 PO (15:20)
[2023-02-08] MEDS ORDERED: CEPH250T PO (15:20)
[2023-02-08] MEDS ORDERED: DOXY100C76 PO (15:20)
== END 2023-02-08 15:31 | disposition home or self-care (01) ==
LOC: ER 12:51
DX: L03.114 Cellulitis of left upper limb (principal); M25.571 Pain in right ankle and joints of right foot; G43.909 Migraine, unspecified, not intractable, without status migrainosus; J44.9 Chronic obstructive pulmonary disease, unspecified; E11.9 Type 2 diabetes mellitus without complications; F12.90 Cannabis use, unspecified, uncomplicated; Z88.5 Allergy status to narcotic agent; Z98.890 Other specified postprocedural states; Z56.0 Unemployment, unspecified
CPT/HCPCS: 99283

== ENCOUNTER 2023-02-19 20:48 | Emergency (ER) | payer MEDICAID ==
[~2023-02-19] VITALS: Ht 167.6 cm; Wt 86.4 kg
[~2023-02-19 20:48] MED LIST changes: +OXYC-145 PO
[2023-02-19] MEDS ORDERED: HYDROcodone/acetaminophen 5mg/325mg tablet PO ONE ×2 (23:55)
[2023-02-19] MEDS ORDERED: ketorolac trometh. 30mg/ml inj. IV ONE (23:55)
[2023-02-19] MEDS ORDERED: ketorolac trometh. 30mg/ml inj. IM ONE (23:55)
[2023-02-20] MEDS ORDERED: HYDR-3965 PO (00:23)
[2023-02-20 00:34] VITALS: BP 121/75
== END 2023-02-20 00:35 | disposition home or self-care (01) ==
LOC: ER 20:48
DX: S82.302A Unspecified fracture of lower end of left tibia, initial encounter for closed fracture (principal); S82.492A Other fracture of shaft of left fibula, initial encounter for closed fracture; G43.909 Migraine, unspecified, not intractable, without status migrainosus; J44.9 Chronic obstructive pulmonary disease, unspecified; E11.9 Type 2 diabetes mellitus without complications; F12.90 Cannabis use, unspecified, uncomplicated; Z88.5 Allergy status to narcotic agent; Z98.890 Other specified postprocedural states; X58.XXXA Exposure to other specified factors, initial encounter; Y93.89 Activity, other specified; Y92.89 Other specified places as the place of occurrence of the external cause; Y99.8 Other external cause status
CPT/HCPCS: 73590; 96372; 99284; J1885

== ENCOUNTER 2023-03-14 13:06 | Emergency (ER) | payer MEDICAID ==
[~2023-03-14] VITALS: Ht 167.6 cm; Wt 90.0 kg
[~2023-03-14 13:06] MED LIST changes: +HYDR-3965 PO
[2023-03-14 13:13] VITALS: BP 118/82
[2023-03-14] MEDS ORDERED: OXYC-150 PO (14:37)
[2023-03-14] MEDS ORDERED: oxyCODONE/APAP 10/325mg tablet PO ONE (14:40)
[2023-03-14] MEDS ORDERED: ketorolac trometh inj. 60 MG/2 ML VIAL IM ONE (14:55)
== END 2023-03-14 15:12 | disposition home or self-care (01) ==
LOC: ER 13:07
DX: M79.605 Pain in left leg (principal); M25.572 Pain in left ankle and joints of left foot; J44.9 Chronic obstructive pulmonary disease, unspecified; E11.9 Type 2 diabetes mellitus without complications; F12.90 Cannabis use, unspecified, uncomplicated; Z88.5 Allergy status to narcotic agent; Z98.890 Other specified postprocedural states; Z56.0 Unemployment, unspecified; Z87.81 Personal history of (healed) traumatic fracture; Z87.898 Personal history of other specified conditions
CPT/HCPCS: 73590; 96372; 99283; J1885

== ENCOUNTER 2023-04-20 13:56 | Emergency (ER) | payer MEDICAID ==
[~2023-04-20] VITALS: Ht 167.6 cm; Wt 90.8 kg
[~2023-04-20 13:56] MED LIST changes: -HYDR-3965 PO; +OXYC-150 PO
[2023-04-20 15:00] VITALS: BP 130/75; PULSE 99; RESP 18; O2SAT 100
== END 2023-04-20 17:05 | disposition left against medical advice (07) ==
LOC: ER 13:56
DX: M23.52 Chronic instability of knee, left knee (principal); G43.909 Migraine, unspecified, not intractable, without status migrainosus; J44.9 Chronic obstructive pulmonary disease, unspecified; Z88.5 Allergy status to narcotic agent; Z79.82 Long term (current) use of aspirin; Z79.1 Long term (current) use of non-steroidal anti-inflammatories (NSAID); Z98.890 Other specified postprocedural states
CPT/HCPCS: 73564; 99283

== ENCOUNTER 2023-05-17 16:06 | Emergency (ER) | payer MEDICAID ==
[~2023-05-17] VITALS: Ht 167.6 cm; Wt 90.0 kg
[2023-05-17 16:17] VITALS: BP 126/78; PULSE 90; TEMP 97.8; O2SAT 99
--- NOTE | 2023-05-17 17:19 | NUR ---
At bedside with Wesley for pelvic exam
[2023-05-17] MEDS ORDERED: ketorolac tromethamine 15mg/ml inj. IM ONE (17:20)
[2023-05-17] MEDS ORDERED: SULF1TAB49 PO (17:21)
[2023-05-17] MEDS ORDERED: CEPH-585 PO (17:21)
[2023-05-17] MEDS ORDERED: ketorolac trometh inj. 60 MG/2 ML VIAL IM ONE (17:25)
[2023-05-17 17:40] VITALS: RESP 18
== END 2023-05-17 17:45 | disposition home or self-care (01) ==
LOC: ER 16:06
DX: N75.1 Abscess of Bartholin's gland (principal); K21.9 Gastro-esophageal reflux disease without esophagitis; J44.9 Chronic obstructive pulmonary disease, unspecified; G89.29 Other chronic pain; M54.9 Dorsalgia, unspecified; F41.9 Anxiety disorder, unspecified; F20.9 Schizophrenia, unspecified; Z79.899 Other long term (current) drug therapy; Z79.1 Long term (current) use of non-steroidal anti-inflammatories (NSAID); Z88.5 Allergy status to narcotic agent; Z88.6 Allergy status to analgesic agent
CPT/HCPCS: 96372; 99284; J1885

== ENCOUNTER 2023-07-13 11:24 | Emergency (ER) | payer MEDICAID ==
[~2023-07-13] VITALS: Ht 167.6 cm; Wt 95.6 kg
[~2023-07-13 11:24] MED LIST changes: +CEPH-585 PO; +METH4TAB81 PO; +NAPR-56 PO
[2023-07-13] MEDS ORDERED: diphenhydrAMINE 50 mg/ml inj IM ONE (14:20)
[2023-07-13] MEDS ORDERED: ketorolac trometh inj. 60 MG/2 ML VIAL IM ONE (14:20)
[2023-07-13] MEDS ORDERED: metoclopramide 5 mg/ml inj IM ONE (14:20)
[2023-07-13 14:49] VITALS: BP 135/89; PULSE 83; RESP 18; TEMP 98.6; O2SAT 98
== END 2023-07-13 14:50 | disposition home or self-care (01) ==
LOC: ER 11:25
DX: G43.909 Migraine, unspecified, not intractable, without status migrainosus (principal); J44.9 Chronic obstructive pulmonary disease, unspecified; E11.9 Type 2 diabetes mellitus without complications; G89.29 Other chronic pain; E05.90 Thyrotoxicosis, unspecified without thyrotoxic crisis or storm; F41.9 Anxiety disorder, unspecified; F32.9 Major depressive disorder, single episode, unspecified; F20.9 Schizophrenia, unspecified; F12.90 Cannabis use, unspecified, uncomplicated; Z90.49 Acquired absence of other specified parts of digestive tract; Z98.890 Other specified postprocedural states; Z56.0 Unemployment, unspecified; Z88.5 Allergy status to narcotic agent; Z79.82 Long term (current) use of aspirin; Z79.899 Other long term (current) drug therapy
CPT/HCPCS: 96372; 99284; J1200; J1885; J2765

== ENCOUNTER 2023-07-19 23:03 | Emergency (ER) | payer MEDICAID ==
[~2023-07-19] VITALS: Ht 167.6 cm; Wt 96.4 kg
[2023-07-19 23:13] VITALS: BP 134/97; PULSE 96; TEMP 98.8; O2SAT 100
[2023-07-19] MEDS ORDERED: LORazepam 1 MG tablet PO ONE (23:30)
[2023-07-19] MEDS ORDERED: acetaminophen 325mg tablet PO ONE (23:30)
[2023-07-19] MEDS ORDERED: aspirin 325mg tablet PO ONE (23:30)
[2023-07-19 23:55] LABS: URINE HCG NEGATIVE (NEG)
[2023-07-20 00:45] VITALS: RESP 16
== END 2023-07-20 00:45 ==
LOC: ER 23:04
DX: R07.9 Chest pain, unspecified (principal); F41.9 Anxiety disorder, unspecified; R51.9 Headache, unspecified
CPT/HCPCS: 71045; 81025; 93005; 99285

== ENCOUNTER 2023-07-23 13:15 | Emergency (ER) | payer MEDICAID ==
[~2023-07-23] VITALS: Ht 167.6 cm; Wt 96.3 kg
[~2023-07-23 13:15] MED LIST changes: -NAPR-56 PO
--- NOTE | 2023-07-23 15:10 | NUR ---
PT TAKEN TO CT.
[2023-07-23 15:22] VITALS: TEMP 98.9
--- NOTE | 2023-07-23 15:23 | NUR ---
EKG BEING DONE AT THIS TIME.
[2023-07-23] MEDS ORDERED: OXYC-145 PO (15:35)
[2023-07-23] MEDS ORDERED: oxyCODONE/APAP 10/325mg tablet PO ONE (15:35)
[2023-07-23 15:46] VITALS: BP 132/73; PULSE 97; RESP 18; O2SAT 99
--- NOTE | 2023-07-23 15:47 | NUR ---
RN PROVIDED 240 CC ORANGE JUICE WITH [employer]CN[employer]ic Technology GroupET D/T BG 88..
== END 2023-07-23 15:51 | disposition home or self-care (01) ==
LOC: ER 13:16
DX: G43.909 Migraine, unspecified, not intractable, without status migrainosus (principal); J44.9 Chronic obstructive pulmonary disease, unspecified; F12.90 Cannabis use, unspecified, uncomplicated; Z88.5 Allergy status to narcotic agent; Z79.82 Long term (current) use of aspirin; Z79.2 Long term (current) use of antibiotics; Z79.899 Other long term (current) drug therapy; Z98.890 Other specified postprocedural states
CPT/HCPCS: 70450; 82948; 93005; 99284

== ENCOUNTER 2023-08-04 22:59 | Emergency (ER) | payer MEDICAID | END 2023-08-05 00:06 | disposition left against medical advice (07) | LOC: ER 23:00 | DX: L02.91 Cutaneous abscess, unspecified (principal); Z53.21 Procedure and treatment not carried out due to patient leaving prior to being seen by health care provider ==

== ENCOUNTER 2023-08-09 14:22 | Emergency (ER) | payer MEDICAID ==
[~2023-08-09] VITALS: Ht 167.6 cm; Wt 95.8 kg
[2023-08-09 14:27] VITALS: PULSE 117; TEMP 98.2; O2SAT 99
[2023-08-09] MEDS ORDERED: cyclobenzaprine 10mg tablet PO ONE (15:10)
[2023-08-09] MEDS: ibuprofen tablet 400 MG TABLET PO ONE ×2 (15:15→15:17)
[2023-08-09] MEDS ORDERED: ketorolac trometh. 30mg/ml inj. IM ONE (15:20)
[2023-08-09 16:30] VITALS: RESP 18
--- NOTE | 2023-08-09 16:45 | NUR ---
AGREE WITH HEALTHCARE CONSULTANT'S ASSESSMENT, REVIEWED.
== END 2023-08-09 16:37 | disposition left against medical advice (07) ==
LOC: ER 14:23
DX: M54.2 Cervicalgia (principal); R53.1 Weakness
CPT/HCPCS: 72125; 96372; 99285; J1885; L0172

== ENCOUNTER 2023-08-12 15:39 | Emergency (ER) | payer MEDICAID ==
[~2023-08-12] VITALS: Ht 167.6 cm; Wt 100.0 kg
[2023-08-12 15:52] VITALS: BP 128/86; PULSE 92; TEMP 97.2; O2SAT 100
[2023-08-12] MEDS ORDERED: ketorolac tromethamine 15mg/ml inj. IM STA (16:04)
[2023-08-12 16:30] VITALS: RESP 18
[2023-08-12] MEDS ORDERED: METH-797 PO (16:34)
== END 2023-08-12 16:55 | disposition home or self-care (01) ==
LOC: ER 15:40
DX: S16.1XXA Strain of muscle, fascia and tendon at neck level, initial encounter (principal); G43.909 Migraine, unspecified, not intractable, without status migrainosus; E11.42 Type 2 diabetes mellitus with diabetic polyneuropathy; J44.9 Chronic obstructive pulmonary disease, unspecified; G89.29 Other chronic pain; F41.9 Anxiety disorder, unspecified; F32.9 Major depressive disorder, single episode, unspecified; E05.90 Thyrotoxicosis, unspecified without thyrotoxic crisis or storm; F20.9 Schizophrenia, unspecified; F12.90 Cannabis use, unspecified, uncomplicated; Z90.49 Acquired absence of other specified parts of digestive tract; Z98.890 Other specified postprocedural states; Z56.0 Unemployment, unspecified; Z88.5 Allergy status to narcotic agent; Z79.82 Long term (current) use of aspirin; Z79.899 Other long term (current) drug therapy
CPT/HCPCS: 96372; 99283; J1885

== ENCOUNTER 2023-08-18 16:46 | Emergency (ER) | payer MEDICAID ==
[~2023-08-18] VITALS: Ht 167.6 cm; Wt 97.2 kg
[~2023-08-18 16:46] MED LIST changes: +METH-797 PO
[2023-08-18 17:58] LABS: MEAN PLATELET VOLUME 6.9 FL (7.4-10.4); MONOCYTES # (AUTO) 0.2 X10'3 (0-0.9)
[2023-08-18 18:00] LABS: BASOPHILS % (AUTO) 0.6 % (0-1); EOSINOPHILS # (AUTO) 0.5 X10'3 (0-0.9); EOSINOPHILS % (AUTO) 6.2 % (0-6); HEMOGLOBIN 14.3 g/dl (12.0-16.0); LYMPHOCYTES % (AUTO) 40.3 % (21-51); MEAN CORPUSCULAR HGB CONC 33.2 g/dL (33.0-36.5); MEAN CORPUSCULAR VOLUME 87.4 FL (78-98); MONOCYTES % (AUTO) 3.2 % (2-12); NEUTROPHILS # (AUTO) 3.7 X10'3 (1.8-7.7); NEUTROPHILS % (AUTO) 49.7 % (42-75); PLATELET COUNT 322 X10'3 (140-440); RED BLOOD COUNT 4.92 X10'6 (4.20-5.60); RED CELL DISTRIBUTION WIDTH 15.8 % (11.5-14.5); WHITE BLOOD COUNT 7.5 X10'3 (4.5-11.0)
[2023-08-18 18:10] LABS: ALANINE AMINOTRANSFERASE 25 U/L (12-78); ALBUMIN 3.8 G/DL (3.4-5.0); ALKALINE PHOSPHATASE 122 IU/L (46-116); ANION GAP 3 (8-16); ASPARTATE AMINO TRANSFERASE 21 U/L (10-37); BILIRUBIN,TOTAL 0.2 MG/DL (0.1-1.0); BLOOD UREA NITROGEN 15 MG/DL (7-18); BUN/CREATININE RATIO 16.9 (10.0-20.0); CHLORIDE 101 MMOL/L (99-107); CREATININE 0.89 MG/DL (0.40-0.90); GLUCOSE 71 MG/DL (70-104); POTASSIUM 3.3 MMOL/L (3.5-5.1); SODIUM 137 MMOL/L (135-145); TOTAL CARBON DIOXIDE 32.7 MMOL/L (24-32); TOTAL PROTEIN 7.6 G/DL (6.4-8.2); eCRCL 85 ML/MIN; eGFR 89 ML/MIN
[2023-08-18 18:17] LABS: PRO BRAIN NATRIURETIC PEPTIDE < 30 PG/ML (0-125)
--- NOTE | 2023-08-18 18:50 | NUR ---
Rosio MEZA informed pt is requesting pain medications
[2023-08-18 19:00] VITALS: BP 129/75; PULSE 87; RESP 16; TEMP 98; O2SAT 97
[2023-08-18] MEDS ORDERED: ziprasidone IM 20mg inj **IM only IM ONE (19:30)
[2023-08-18 19:38] LABS: BILIRUBIN,URINE NEGATIVE (Neg); CLARITY,URINE CLOUDY (Clear); COLOR,URINE YELLOW (Yellow); GLUCOSE, URINE NEGATIVE (Neg); KETONES,URINE NEGATIVE (Neg); LEUKOCYTE ESTERASE ,URINE NEGATIVE (Neg); NITRITES, URINE NEGATIVE (Neg); OCCULT BLOOD,URINE NEGATIVE (Neg); PROTEIN,URINE NEGATIVE (Neg); UROBILINOGEN,URINE 0.2 E.U/dL (0.2-1.0)
[2023-08-18] MEDS ORDERED: LidoCAINE 2% Topical Jelly 11mL syringe TOP ONE (19:40)
[2023-08-18 19:45] LABS: UA COLLECTION TYPE CLN CATCH MIDSTREAM
[2023-08-18 19:46] LABS: SQUAMOUS EPITHELIAL CELL,UR MANY /LPF (FEW)
[2023-08-18 19:47] LABS: BACTERIA,URINE 1+ /HPF (Neg); RBC,URINE 0-2 /HPF (0-2); WBC,URINE 0-4 /HPF (0-4)
[2023-08-18 20:07] LABS: URINE AMPHETAMINE SCREEN NEGATIVE (Neg); URINE BARBITUATE SCREEN NEGATIVE (Neg); URINE BENZODIAZEPINES SCREEN NEGATIVE (Neg); URINE CANNABINOID SCREEN POSITIVE (Neg); URINE COCAINE SCREEN NEGATIVE (Neg); URINE METHADONE SCREEN NEGATIVE (Neg); URINE OPIATE SCREEN POSITIVE (Neg); URINE PHENCYCLIDINE SCREEN NEGATIVE (Neg)
== END 2023-08-18 19:58 | disposition left against medical advice (07) ==
LOC: ER 16:47
DX: R10.31 Right lower quadrant pain (principal); R55 Syncope and collapse; M25.512 Pain in left shoulder; G43.909 Migraine, unspecified, not intractable, without status migrainosus; J44.9 Chronic obstructive pulmonary disease, unspecified; E11.9 Type 2 diabetes mellitus without complications; G89.29 Other chronic pain; R06.00 Dyspnea, unspecified; F41.9 Anxiety disorder, unspecified; F32.9 Major depressive disorder, single episode, unspecified; F20.9 Schizophrenia, unspecified; Z90.49 Acquired absence of other specified parts of digestive tract; Z98.890 Other specified postprocedural states; Z88.5 Allergy status to narcotic agent; Z79.82 Long term (current) use of aspirin; Z79.899 Other long term (current) drug therapy
CPT/HCPCS: 36415; 71045; 80053; 80305; 81001; 83880; 84484; 85025; 93005; 99285

== ENCOUNTER 2023-08-28 11:47 | Emergency (ER) | payer MEDICAID ==
[~2023-08-28] VITALS: Ht 167.6 cm; Wt 95.9 kg
[2023-08-28 12:21] VITALS: BP 129/107; PULSE 101; RESP 18; TEMP 98.5; O2SAT 100
[2023-08-28] MEDS ORDERED: IBUP-1984 PO (12:53)
[2023-08-28] MEDS ORDERED: AMOX-117 PO (12:53)
[2023-08-28] MEDS ORDERED: HYDR-3965 PO (12:53)
== END 2023-08-28 13:02 | disposition home or self-care (01) ==
LOC: ER 11:48
DX: K08.89 Other specified disorders of teeth and supporting structures (principal); K04.7 Periapical abscess without sinus; G43.909 Migraine, unspecified, not intractable, without status migrainosus; J44.9 Chronic obstructive pulmonary disease, unspecified; E11.9 Type 2 diabetes mellitus without complications; F12.90 Cannabis use, unspecified, uncomplicated; G89.29 Other chronic pain; Z87.891 Personal history of nicotine dependence; Z56.0 Unemployment, unspecified; Z79.2 Long term (current) use of antibiotics; Z79.899 Other long term (current) drug therapy; Z79.82 Long term (current) use of aspirin; Z88.8 Allergy status to other drugs, medicaments and biological substances
CPT/HCPCS: 99283

== ENCOUNTER → 2023-09-08 | Emergency (ER) | payer MEDICAID ==
[~2023-09-08] VITALS: Ht 167.6 cm; Wt 95.7 kg
[~2023-09-08] MED LIST changes: +AMOX-117 PO; +CefTRIAXone 1000mg IM Kit (w/lidocaine diluent) IM ONE; +HYDR-3965 PO; +NAPR-56 PO; +SULF1TAB49 PO
[2023-09-08 13:52] VITALS: BP 130/85; PULSE 100; RESP 16; TEMP 97.8; O2SAT 100
== END | disposition home or self-care (01) ==
LOC: ER 13:44
DX: K12.2 Cellulitis and abscess of mouth (principal); L03.114 Cellulitis of left upper limb; L03.113 Cellulitis of right upper limb; N76.2 Acute vulvitis; G43.909 Migraine, unspecified, not intractable, without status migrainosus; J44.9 Chronic obstructive pulmonary disease, unspecified; E11.9 Type 2 diabetes mellitus without complications; E05.00 Thyrotoxicosis with diffuse goiter without thyrotoxic crisis or storm; F12.90 Cannabis use, unspecified, uncomplicated; G89.29 Other chronic pain; Z87.81 Personal history of (healed) traumatic fracture; Z90.49 Acquired absence of other specified parts of digestive tract; Z88.8 Allergy status to other drugs, medicaments and biological substances; Z79.82 Long term (current) use of aspirin; Z79.899 Other long term (current) drug therapy
CPT/HCPCS: 96372; 99283; J0696

== ENCOUNTER 2023-09-13 15:35 | Emergency (ER) | payer MEDICAID ==
[~2023-09-13] VITALS: Ht 167.6 cm; Wt 96.9 kg
[~2023-09-13 15:35] MED LIST changes: -AMOX-117 PO; -CefTRIAXone 1000mg IM Kit (w/lidocaine diluent) IM ONE
[2023-09-13 15:48] VITALS: BP 141/74; PULSE 100; RESP 18; TEMP 98; O2SAT 100
== END 2023-09-13 18:19 | disposition left against medical advice (07) ==
LOC: ER 15:36
DX: K08.89 Other specified disorders of teeth and supporting structures (principal); Z53.21 Procedure and treatment not carried out due to patient leaving prior to being seen by health care provider
CPT/HCPCS: 99281

== ENCOUNTER 2023-09-17 15:45 | Emergency (ER) | payer MEDICAID ==
[~2023-09-17] VITALS: Ht 167.6 cm; Wt 95.5 kg
[2023-09-17] MEDS ORDERED: proparacaine 0.5% ophthalmic drops 15ml EACHEYE ONE (16:25)
[2023-09-17] MEDS ORDERED: fluorescein sod 1mg ophthalmic strip RIGHTEYE ONE (16:25)
[2023-09-17] MEDS ORDERED: ketorolac trometh. 30mg/ml inj. IM ONE (16:55)
[2023-09-17] MEDS ORDERED: polymyxin B sulf/tmp ophth drops 10ml RIGHTEYE SCH (17:00)
[2023-09-17] MEDS ORDERED: POLOS EACHEYE (17:06)
[2023-09-17] MEDS ORDERED: IBUP-1984 PO (17:06)
[2023-09-17 17:22] VITALS: BP 132/70; PULSE 80; RESP 16; TEMP 97.8; O2SAT 98
== END 2023-09-17 17:25 | disposition home or self-care (01) ==
LOC: ER 15:46
DX: S05.01XA Injury of conjunctiva and corneal abrasion without foreign body, right eye, initial encounter (principal); X58.XXXA Exposure to other specified factors, initial encounter; Y93.89 Activity, other specified; Y92.89 Other specified places as the place of occurrence of the external cause; Y99.8 Other external cause status
CPT/HCPCS: 96372; 99283; J1885

== ENCOUNTER 2023-09-19 12:09 | Emergency (ER) | payer MEDICAID ==
[~2023-09-19] VITALS: Ht 167.6 cm; Wt 98.6 kg
[~2023-09-19 12:09] MED LIST changes: +POLOS EACHEYE
[2023-09-19 12:41] VITALS: BP 136/83; PULSE 110; O2SAT 98
[2023-09-19] MEDS ORDERED: SULF1TAB49 PO (12:46)
[2023-09-19] MEDS ORDERED: NAPR-56 PO (12:46)
[2023-09-19] MEDS ORDERED: CEPH-585 PO (12:46)
[2023-09-19] MEDS ORDERED: ketorolac trometh. 30mg/ml inj. IM ONE (12:50)
[2023-09-19 12:58] VITALS: RESP 16; TEMP 98.5
== END 2023-09-19 13:04 | disposition home or self-care (01) ==
LOC: ER 12:10
DX: L03.114 Cellulitis of left upper limb (principal); J44.9 Chronic obstructive pulmonary disease, unspecified; E11.9 Type 2 diabetes mellitus without complications; I10 Essential (primary) hypertension; G89.29 Other chronic pain; M54.9 Dorsalgia, unspecified; F31.9 Bipolar disorder, unspecified; F20.9 Schizophrenia, unspecified; Z88.5 Allergy status to narcotic agent; Z79.899 Other long term (current) drug therapy
CPT/HCPCS: 96372; 99283; J1885

== ENCOUNTER 2023-09-22 20:47 | Emergency (ER) | payer MEDICAID ==
[~2023-09-22] VITALS: Ht 167.6 cm; Wt 100.0 kg
[2023-09-22 20:48] VITALS: TEMP 98.3
[2023-09-22 21:21] VITALS: BP 126/87; PULSE 83; RESP 16; O2SAT 100
== END 2023-09-22 22:23 | disposition left against medical advice (07) ==
LOC: ER 20:48
DX: T15.82XA Foreign body in other and multiple parts of external eye, left eye, initial encounter (principal); J44.9 Chronic obstructive pulmonary disease, unspecified; E03.9 Hypothyroidism, unspecified; G89.29 Other chronic pain; M54.9 Dorsalgia, unspecified; F31.9 Bipolar disorder, unspecified; F20.9 Schizophrenia, unspecified; F12.10 Cannabis abuse, uncomplicated; G43.909 Migraine, unspecified, not intractable, without status migrainosus; E11.9 Type 2 diabetes mellitus without complications; Z79.899 Other long term (current) drug therapy; X58.XXXA Exposure to other specified factors, initial encounter; Y93.89 Activity, other specified; Y92.89 Other specified places as the place of occurrence of the external cause; Y99.8 Other external cause status
CPT/HCPCS: 99281

== ENCOUNTER 2023-10-07 14:50 | Emergency (ER) | payer MEDICAID ==
[~2023-10-07] VITALS: Ht 167.6 cm; Wt 97.2 kg
[~2023-10-07 14:50] MED LIST changes: -HYDR-3965 PO; -POLOS EACHEYE; -SULF1TAB49 PO
[2023-10-07 15:14] VITALS: BP 117/84; PULSE 89; TEMP 98.2; O2SAT 100
[2023-10-07] MEDS ORDERED: ketorolac trometh. 30mg/ml inj. IM ONE (16:00)
[2023-10-07 16:07] VITALS: RESP 16
== END 2023-10-07 16:12 | disposition home or self-care (01) ==
LOC: ER 14:51
DX: S83.92XA Sprain of unspecified site of left knee, initial encounter (principal); S93.402A Sprain of unspecified ligament of left ankle, initial encounter; G43.909 Migraine, unspecified, not intractable, without status migrainosus; J44.9 Chronic obstructive pulmonary disease, unspecified; G89.29 Other chronic pain; E11.42 Type 2 diabetes mellitus with diabetic polyneuropathy; E05.00 Thyrotoxicosis with diffuse goiter without thyrotoxic crisis or storm; Z87.81 Personal history of (healed) traumatic fracture; F12.90 Cannabis use, unspecified, uncomplicated; Z56.0 Unemployment, unspecified; Z90.49 Acquired absence of other specified parts of digestive tract; Z98.891 History of uterine scar from previous surgery; Z98.890 Other specified postprocedural states; Z88.8 Allergy status to other drugs, medicaments and biological substances; Z79.82 Long term (current) use of aspirin; Z79.899 Other long term (current) drug therapy; Z79.2 Long term (current) use of antibiotics; W19.XXXA Unspecified fall, initial encounter; Y93.89 Activity, other specified; Y92.89 Other specified places as the place of occurrence of the external cause; Y99.8 Other external cause status
CPT/HCPCS: 73564; 73610; 96372; 99284; J1885

== ENCOUNTER 2023-10-12 16:37 | Emergency (ER) | payer MEDICAID ==
[~2023-10-12] VITALS: Ht 175.3 cm; Wt 95.8 kg
[2023-10-12 16:54] VITALS: BP 169/96; PULSE 93; RESP 16; TEMP 97; O2SAT 97
[2023-10-13] MEDS ORDERED: HYDR-3973 PO (12:59)
== END 2023-10-12 17:35 | disposition left against medical advice (07) ==
LOC: ER 17:00
DX: R10.9 Unspecified abdominal pain (principal); Z53.21 Procedure and treatment not carried out due to patient leaving prior to being seen by health care provider
CPT/HCPCS: 99281

== ENCOUNTER 2023-10-13 10:29 | Emergency (ER) | payer MEDICAID ==
[~2023-10-13] VITALS: Ht 167.6 cm; Wt 100.9 kg
[2023-10-13 10:59] VITALS: BP 140/79; PULSE 97; RESP 16; TEMP 97.9; O2SAT 99
[2023-10-13] MEDS ORDERED: HYDR-3973 PO (12:59)
== END 2023-10-13 13:22 | disposition home or self-care (01) ==
LOC: ER 10:30
DX: R10.33 Periumbilical pain (principal); G43.909 Migraine, unspecified, not intractable, without status migrainosus; J44.9 Chronic obstructive pulmonary disease, unspecified; I10 Essential (primary) hypertension; G89.29 Other chronic pain; E11.40 Type 2 diabetes mellitus with diabetic neuropathy, unspecified; F12.90 Cannabis use, unspecified, uncomplicated; Z56.0 Unemployment, unspecified; Z79.2 Long term (current) use of antibiotics; Z79.899 Other long term (current) drug therapy; Z88.8 Allergy status to other drugs, medicaments and biological substances
CPT/HCPCS: 99283

== ENCOUNTER 2023-10-31 11:19 | Emergency (ER) | payer MEDICAID ==
[~2023-10-31] VITALS: Ht 167.6 cm; Wt 96.5 kg
[~2023-10-31 11:19] MED LIST changes: -NAPR-56 PO
[2023-10-31 11:29] VITALS: BP 149/85; PULSE 93; TEMP 98; O2SAT 98
[2023-10-31] MEDS ORDERED: NAPR-56 PO (12:26)
[2023-10-31] MEDS ORDERED: CEPH-585 PO (12:26)
[2023-10-31 12:51] VITALS: RESP 16
[2023-10-31] MEDS: ketorolac trometh inj. 60 MG/2 ML VIAL IM ONE (12:51)
== END 2023-10-31 12:59 | disposition home or self-care (01) ==
LOC: ER 11:19
DX: M25.562 Pain in left knee (principal); G89.18 Other acute postprocedural pain; J45.909 Unspecified asthma, uncomplicated; E11.9 Type 2 diabetes mellitus without complications; E07.9 Disorder of thyroid, unspecified; F20.9 Schizophrenia, unspecified; F32.A Depression, unspecified; Z88.8 Allergy status to other drugs, medicaments and biological substances; Z79.899 Other long term (current) drug therapy
CPT/HCPCS: 96372; 99283; J1885

== ENCOUNTER 2023-11-29 13:45 | Day surgery (SDC) | payer MEDICAID ==
[2023-11-28 12:08] LABS: BASOPHILS # (AUTO) 0.1 X10'3 (0-0.2); BASOPHILS % (AUTO) 0.7 % (0-1); EOSINOPHILS # (AUTO) 0.3 X10'3 (0-0.9); EOSINOPHILS % (AUTO) 3.6 % (0-6); LYMPHOCYTES # (AUTO) 2.3 X10'3 (1.1-4.8); LYMPHOCYTES % (AUTO) 28.2 % (21-51); MEAN CORPUSCULAR HEMOGLOBIN 28.3 PG (27.0-31.0); MEAN CORPUSCULAR HGB CONC 32.5 g/dL (33.0-36.5); MEAN CORPUSCULAR VOLUME 87.2 FL (78-98); MEAN PLATELET VOLUME 6.5 FL (7.4-10.4); MONOCYTES # (AUTO) 0.4 X10'3 (0-0.9); MONOCYTES % (AUTO) 5.4 % (2-12); NEUTROPHILS % (AUTO) 62.1 % (42-75); PRE OP HEMATOCRIT 46.7 % (35.0-45.0); PRE OP HEMOGLOBIN 15.2 g/dL (12.0-16.0); PRE OP PLATELET COUNT 373 X10'3 (140-440); RED BLOOD COUNT 5.36 X10'6 (4.20-5.60); RED CELL DISTRIBUTION WIDTH 15.8 % (11.5-14.5)
[2023-11-28 12:23] LABS: PRE OP INR 0.9 INR; PRE OP PROTIME 10.2 SECONDS (9.0-12.0)
[2023-11-28 12:25] LABS: ALBUMIN/GLOBULIN RATIO 0.9 (1.1-1.5); ALKALINE PHOSPHATASE 116 IU/L (46-116); BLOOD UREA NITROGEN 5 MG/DL (7-18); BUN/CREATININE RATIO 6.3 (10.0-20.0); CALCIUM 8.9 MG/DL (8.5-10.1); CHLORIDE 106 MMOL/L (99-107); CREATININE 0.79 MG/DL (0.40-0.90); PRE OP ALT 23 U/L (30-65); PRE OP ANION GAP 9 (8-16); PRE OP AST 21 U/L (10-37); PRE OP BILIRUB, TOTAL 0.3 MG/DL (0.0-1.0); PRE OP GLUCOSE 110 MG/DL (70-104); PRE OP POTASSIUM 3.8 MMOL/L (3.4-5.1); PRE OP SODIUM 140 MMOL/L (135-145); TOTAL PROTEIN 8.3 G/DL (6.4-8.2); eGFR > 90 ML/MIN
[2023-11-28 13:02] LABS: HCG SERUM QL NEGATIVE
[2023-11-29] VITALS (9 sets, daily range): BP systolic 124–149; BP diastolic 61–88; PULSE 82–108; RESP 16–20; TEMP 96.3; O2SAT 98–100
[~2023-11-29] VITALS: Ht 167.6 cm; Wt 96.0 kg
[~2023-11-29 13:45] MED LIST changes: -ASPI-1071 PO; -BUDE10.26 IH; -BUSP10TA3 PO; -CEPH-585 PO; -CETI10TA14 PO; -IBUP-1984 PO; -LEVO150T8 PO; +LEVO175T7 PO; -METH-797 PO; -METH4TAB81 PO; -NICO-631 TD; -OXYC-145 PO; -OXYC-150 PO; -OXYC1TAB17 PO; -TRAZ-256 PO
[2023-11-29] MEDS ORDERED: morphine 2 MG/ML inj. syringe IV PRN (14:05)
[2023-11-29] MEDS ORDERED: labetalol 20mg/4ml (5mg/ml) syringe IV PRN (14:05)
[2023-11-29] MEDS ORDERED: fentaNYL/PF 50MCG/1 ML 2ML syringe IV PRN (14:05)
[2023-11-29] MEDS ORDERED: hydrALAZINE 20mg/ml inj. IV PRN (14:05)
[2023-11-29] MEDS ORDERED: ondansetron/PF 4mg/2ml inj IV PRN (14:05)
[2023-11-29] MEDS: famotidine 20mg tablet PO ONE (14:20)
[2023-11-29] MEDS: cefazolin 2gm/D5W 100mL 100 ML IV ONE (14:21)
[2023-11-29] MEDS: ringers solution, lacted 1,000 ML IV SCH ×2 (14:21→16:36)
[2023-11-29] MEDS ORDERED: BUPIVAcaine/PF 2.5mg/ml (0.25%) 10ml vial ONE (14:26)
[2023-11-29] MEDS ORDERED: LIDOcaine 1% (10mg/ml)w/preservative inj. 20ml MDV ONE (14:26)
[2023-11-29] MEDS ORDERED: MIDAZolam 1 MG/ML 5ML VIAL ONE (15:17)
[2023-11-29] MEDS ORDERED: fentaNYL /PF 50mcg/ml 5ml ampule ONE (15:17)
[2023-11-29] MEDS ORDERED: desflurane 240ml liquid inh. IH ONE (15:30)
[2023-11-29] MEDS ORDERED: propofol inj 20 ML IV ONE (15:41)
[2023-11-29] MEDS ORDERED: LIDOcaine 2% (20mg/ml) 5ml vial ONE (15:41)
[2023-11-29] MEDS ORDERED: ondansetron/PF 4mg/2ml inj ONE (15:43)
[2023-11-29] MEDS ORDERED: dexamethasone sod phosphate 4mg/ml inj. ONE (15:43)
[2023-11-29] MEDS: LIDOCAINE 1% w/preservative (10 MG/ML) inj. 10mL VIAL IJ ONE (15:53)
[2023-11-29] MEDS: BUPIVAcaine/PF 2.5mg/ml (0.25%) 10ml vial IJ ONE (15:53)
[2023-11-29] MEDS: morphine 4 MG/ML inj SYRINge IV PRN (16:34)
[2023-11-29] MEDS ORDERED: oxyCODONE/APAP 5-325mg tablet PO PRN (16:50)
[2023-11-29] MEDS: fentaNYL/PF 50MCG/1 ML 2ML syringe IV PRN (17:04)
[2023-11-29] MEDS: oxyCODONE IR 5mg (immed. release) tablet PO ONE (17:18)
== END 2023-11-29 17:49 | disposition home or self-care (01) ==
LOC: PAS 13:45 → EEVIPCON 15:45 → PAS 17:49
PROVIDERS: ATTEND Surgery
DX: T85.848A Pain due to other internal prosthetic devices, implants and grafts, initial encounter (principal); L76.34 Postprocedural seroma of skin and subcutaneous tissue following other procedure; G89.29 Other chronic pain; E66.9 Obesity, unspecified; Z68.35 Body mass index [BMI] 35.0-35.9, adult; I25.2 Old myocardial infarction; J44.9 Chronic obstructive pulmonary disease, unspecified; F41.9 Anxiety disorder, unspecified; F32.A Depression, unspecified; Z87.891 Personal history of nicotine dependence; Z79.01 Long term (current) use of anticoagulants; Z88.5 Allergy status to narcotic agent; Z88.8 Allergy status to other drugs, medicaments and biological substances; Z79.899 Other long term (current) drug therapy; Z98.890 Other specified postprocedural states; Y83.8 Other surgical procedures as the cause of abnormal reaction of the patient, or of later complication, without mention of misadventure at the time of the procedure; Y92.89 Other specified places as the place of occurrence of the external cause
CPT/HCPCS: 10180; 15851; 36415; 80053; 82948; 84703; 85025; 85610; 85730; 93005; J0690; J1100; J2250; J2270; J2405; J2704; J3010; J3490; J7030; J7120; Z7506; Z7512; A4215; A4618

== ENCOUNTER 2023-12-15 18:09 | Emergency (ER) | payer MEDICAID ==
[~2023-12-15] VITALS: Ht 167.6 cm; Wt 98.1 kg
[2023-12-15 18:13] VITALS: BP 166/104; PULSE 105; RESP 16; TEMP 98.6; O2SAT 100
[2023-12-15] MEDS ORDERED: PER5325T PO (18:19)
[2023-12-15] MEDS ORDERED: NAPR-56 PO (18:19)
[2023-12-15] MEDS ORDERED: DOXY-1 PO (18:19)
== END 2023-12-15 18:38 | disposition home or self-care (01) ==
LOC: ER 18:10
DX: K04.7 Periapical abscess without sinus (principal); J45.909 Unspecified asthma, uncomplicated; J44.9 Chronic obstructive pulmonary disease, unspecified; E11.9 Type 2 diabetes mellitus without complications; E78.00 Pure hypercholesterolemia, unspecified; F20.9 Schizophrenia, unspecified; F41.9 Anxiety disorder, unspecified; F32.A Depression, unspecified; G43.909 Migraine, unspecified, not intractable, without status migrainosus; F12.90 Cannabis use, unspecified, uncomplicated; Z56.0 Unemployment, unspecified; Z72.89 Other problems related to lifestyle; Z79.899 Other long term (current) drug therapy; Z90.49 Acquired absence of other specified parts of digestive tract; Z88.5 Allergy status to narcotic agent; Z88.8 Allergy status to other drugs, medicaments and biological substances
CPT/HCPCS: 99283

== ENCOUNTER 2023-12-23 09:49 | Emergency (ER) | payer MEDICAID ==
[~2023-12-23] VITALS: Ht 167.6 cm; Wt 98.0 kg
[~2023-12-23 09:49] MED LIST changes: +DOXY-1 PO; +NAPR-56 PO
[2023-12-23 10:59] VITALS: BP 142/81; PULSE 98; RESP 16; TEMP 97.8; O2SAT 100
[2023-12-23] MEDS ORDERED: IBUP-1984 PO (11:04)
[2023-12-23] MEDS: ketorolac trometh. 30mg/ml inj. IM ONE (11:09)
== END 2023-12-23 11:15 | disposition home or self-care (01) ==
LOC: ER 09:50
DX: S80.02XA Contusion of left knee, initial encounter (principal); M54.50 Low back pain, unspecified; G43.909 Migraine, unspecified, not intractable, without status migrainosus; J44.9 Chronic obstructive pulmonary disease, unspecified; E11.9 Type 2 diabetes mellitus without complications; E05.90 Thyrotoxicosis, unspecified without thyrotoxic crisis or storm; F41.8 Other specified anxiety disorders; F20.9 Schizophrenia, unspecified; Z88.5 Allergy status to narcotic agent; Z98.890 Other specified postprocedural states; Z79.1 Long term (current) use of non-steroidal anti-inflammatories (NSAID); Z56.0 Unemployment, unspecified; Z79.899 Other long term (current) drug therapy; Y08.89XA Assault by other specified means, initial encounter; Y93.89 Activity, other specified; Y92.89 Other specified places as the place of occurrence of the external cause; Y99.8 Other external cause status
CPT/HCPCS: 96372; 99283; J1885

== ENCOUNTER 2023-12-30 11:34 | Emergency (ER) | payer MEDICAID ==
[~2023-12-30] VITALS: Ht 167.6 cm; Wt 100.0 kg
[2023-12-30 11:34] VITALS: BP 149/81; PULSE 84; RESP 16; TEMP 98.6; O2SAT 100
[~2023-12-30 11:34] MED LIST changes: -DOXY-1 PO; +IBUP-1984 PO
== END 2023-12-30 12:06 | disposition home or self-care (01) ==
LOC: ER 11:34
DX: S40.022D Contusion of left upper arm, subsequent encounter (principal); S40.021D Contusion of right upper arm, subsequent encounter; G43.909 Migraine, unspecified, not intractable, without status migrainosus; E11.9 Type 2 diabetes mellitus without complications; J44.9 Chronic obstructive pulmonary disease, unspecified; Z88.5 Allergy status to narcotic agent; Z88.6 Allergy status to analgesic agent; Z79.899 Other long term (current) drug therapy; Z79.1 Long term (current) use of non-steroidal anti-inflammatories (NSAID); Z98.890 Other specified postprocedural states; Y08.89XD Assault by other specified means, subsequent encounter
CPT/HCPCS: 99281

== ENCOUNTER 2024-01-08 19:30 | Emergency (ER) | payer MEDICAID ==
[~2024-01-08] VITALS: Ht 167.6 cm; Wt 101.0 kg
[2024-01-08 19:58] VITALS: BP 139/70; PULSE 95; RESP 16; TEMP 98.2; O2SAT 98
== END 2024-01-08 21:39 | disposition left against medical advice (07) ==
LOC: ER 19:31
DX: R52 Pain, unspecified (principal); Z53.21 Procedure and treatment not carried out due to patient leaving prior to being seen by health care provider; Y08.89XA Assault by other specified means, initial encounter; Y93.89 Activity, other specified; Y92.89 Other specified places as the place of occurrence of the external cause; Y99.8 Other external cause status
CPT/HCPCS: 70450; 99281

== ENCOUNTER 2024-01-10 10:09 | Emergency (ER) | payer MEDICAID ==
[~2024-01-10] VITALS: Ht 167.6 cm; Wt 78.2 kg
[2024-01-10 10:16] VITALS: BP 117/71; PULSE 95; O2SAT 99
[2024-01-10] MEDS: oxyCODONE IR 5mg (immed. release) tablet PO ONE (11:11)
[2024-01-10 11:13] VITALS: RESP 18
[2024-01-10] MEDS: ketorolac trometh. 30mg/ml inj. IM ONE (11:13)
[2024-01-10 11:18] VITALS: TEMP 98.1
== END 2024-01-10 11:15 | disposition home or self-care (01) ==
LOC: ER 10:11
DX: S80.12XA Contusion of left lower leg, initial encounter (principal); G43.909 Migraine, unspecified, not intractable, without status migrainosus; J44.9 Chronic obstructive pulmonary disease, unspecified; Z88.5 Allergy status to narcotic agent; Z88.6 Allergy status to analgesic agent; Z79.899 Other long term (current) drug therapy; Z79.1 Long term (current) use of non-steroidal anti-inflammatories (NSAID); Z98.890 Other specified postprocedural states; Y08.89XA Assault by other specified means, initial encounter; Y93.89 Activity, other specified; Y92.89 Other specified places as the place of occurrence of the external cause; Y99.8 Other external cause status
CPT/HCPCS: 29505; 96372; 99283; J1885

== ENCOUNTER 2024-01-27 23:22 | Emergency (ER) | payer MEDICAID ==
[~2024-01-27] VITALS: Ht 167.6 cm; Wt 100.9 kg
[~2024-01-27 23:22] MED LIST changes: -IBUP-1984 PO; -NAPR-56 PO
[2024-01-27 23:23] VITALS: BP 122/81; O2SAT 97
[2024-01-27] MEDS ORDERED: ketorolac trometh. 30mg/ml inj. IV ONE (23:35)
[2024-01-27] MEDS: ketorolac tromethamine 15mg/ml inj. IV ONE (23:58)
[2024-01-28] MEDS: LORazepam 1 MG tablet PO ONE (00:14)
[2024-01-28 00:35] VITALS: PULSE 75; RESP 16; TEMP 98.6
== END 2024-01-28 00:48 | disposition home or self-care (01) ==
LOC: ER 23:23
DX: R07.89 Other chest pain (principal); M79.601 Pain in right arm; G43.909 Migraine, unspecified, not intractable, without status migrainosus; J44.9 Chronic obstructive pulmonary disease, unspecified; Z88.5 Allergy status to narcotic agent; Z88.8 Allergy status to other drugs, medicaments and biological substances; Z79.2 Long term (current) use of antibiotics; Z79.899 Other long term (current) drug therapy; Z98.890 Other specified postprocedural states
CPT/HCPCS: 93005; 96374; 99283; J1885

== ENCOUNTER 2024-02-02 15:24 | Emergency (ER) | payer MEDICAID ==
[~2024-02-02] VITALS: Ht 167.6 cm; Wt 100.9 kg
[2024-02-02 15:33] VITALS: BP 129/87; PULSE 101; TEMP 98.3; O2SAT 100
[2024-02-02 15:42] VITALS: RESP 16
== END 2024-02-02 15:57 | disposition home or self-care (01) ==
LOC: ER 15:25
DX: G43.909 Migraine, unspecified, not intractable, without status migrainosus (principal); J44.9 Chronic obstructive pulmonary disease, unspecified; G89.29 Other chronic pain; E11.42 Type 2 diabetes mellitus with diabetic polyneuropathy; Z90.49 Acquired absence of other specified parts of digestive tract; Z98.891 History of uterine scar from previous surgery; Z56.0 Unemployment, unspecified; Z88.8 Allergy status to other drugs, medicaments and biological substances; Z79.899 Other long term (current) drug therapy; Z79.2 Long term (current) use of antibiotics; Y08.89XA Assault by other specified means, initial encounter; Y93.89 Activity, other specified; Y92.89 Other specified places as the place of occurrence of the external cause; Y99.8 Other external cause status
CPT/HCPCS: 99283

== ENCOUNTER 2024-02-03 08:17 | Emergency (ER) | payer MEDICAID ==
[~2024-02-03] VITALS: Ht 167.6 cm; Wt 99.0 kg
[2024-02-03 08:18] VITALS: TEMP 98.7
[2024-02-03 09:09] VITALS: PULSE 79; RESP 18; O2SAT 100
[2024-02-03] MEDS: ketorolac tromethamine 15mg/ml inj. IM ONE (09:41)
[2024-02-03] MEDS: ketorolac trometh inj. 60 MG/2 ML VIAL IM ONE (09:43)
[2024-02-03] MEDS: butalbital/acetaminophen/caffeine (Fioricet) tablet PO ONE (09:52)
[2024-02-03 10:24] VITALS: BP 122/91
[2024-02-03] MEDS: proCHLORperazine 10 MG/2 ml inj IV ONE (11:27)
[2024-02-03] MEDS: normal saline 1000ML IV soln IVB ONE (11:27)
[2024-02-03] MEDS: diphenhydrAMINE 50 mg/ml inj IV ONE (11:27)
== END 2024-02-03 12:09 | disposition home or self-care (01) ==
LOC: ER 08:18
DX: G43.909 Migraine, unspecified, not intractable, without status migrainosus (principal); J44.9 Chronic obstructive pulmonary disease, unspecified; E11.9 Type 2 diabetes mellitus without complications; F12.90 Cannabis use, unspecified, uncomplicated; Z88.5 Allergy status to narcotic agent; Z79.899 Other long term (current) drug therapy; Z98.890 Other specified postprocedural states
CPT/HCPCS: 96361; 96372; 96374; 96375; 99284; J0780; J1200; J1885; J7030